=== PATIENT | male | born 1955 | race Caucasian/White ===

== ENCOUNTER 2021-04-25 06:57 | Observation (INO) | payer MEDICARE, SELFPAY ==
[2021-04-25] VITALS (25 sets, daily range): BP systolic 101–163; BP diastolic 57–113; PULSE 69–105; RESP 14–24; TEMP 36.1–36.9; O2SAT 94–100; BMI 35.1
--- NOTE | ~2021-04-25 | XR_ITS ---
EXAMINATION: XR chest 2V EXAM DATE: 04/25/2021 08:14 INDICATION: Irregular heartbeat with cough that started this morning. TECHNIQUE: Frontal and lateral projections of the chest obtained and reviewed. Comparison is made to prior examination from 10/31/2018. FINDINGS: Left midlung zone region of slightly increased density, possible developing pneumonia. Plea se clinically correlate. This finding has been indicated, marked on the examination for review, clini angy correlation. The lungs are otherwise clear. There are no pleural effusions. The cardiomediast inal silhouette is within normal limits. There is no pneumothorax suspected. The bones and soft tis sues are unremarkable. IMPRESSION: Left midlung zone region of slightly increased density, possible developing pneumonia. Pl ease clinically correlate. Reviewed, dictated and finalized at location A. IMPRESSION: Left midlung zone region of slightly increased density, possible de veloping pneumonia. Please clinically correlate.
--- NOTE | ~2021-04-25 | XR_ITS ---
XR chest 2V 04/27/2021 12:39 Indication: Dyspnea Procedure: 2 view chest Comparison: 10/31/2018 and 04/25/2021 Findings: There is a mass in the left lower thorax. Follow-up CT chest recommended to exclude maligna ncy. Borderline heart size. No focal pneumonia, edema, pleural effusion or pneumothorax. Impression: 1: Masslike density left lower thorax. Follow-up CT chest recommended. Reviewed, dictated and finalized at location B. Impression: 1: Masslike density left lower thorax. Follow-up CT chest recommended.
--- NOTE | ~2021-04-25 | CT_ITS ---
EXAMINATION: CT diagnostic chest w con DATE: 04/27/2021 17:44 INDICATION: abnormal chest x-ray TECHNIQUE: Computed tomography (CT) of the chest was performed with 100 mL Omnipaque-350 intravenous contrast. Additional 3D reconstructions utilizing coronal maximum intensity projection (MIP) were per formed. Automated exposure control and iterative reconstruction technique were employed. The dose-rashad gth product was 968.09 mGy-cm. COMPARISON: Chest radiograph dated 04/27/2021 FINDINGS: The nodular opacity of concern on the prior chest radiograph corresponds to minimal lingular atelecta sis along side a small paracardial fat pad. No suspicious pulmonary nodules, pneumonia, pulmonary leann ma or pleural effusion. Heart size is normal. Mitral annular calcification. Minimal scattered atheros clerotic coronary artery calcification. No pericardial effusion. Thoracic aorta is normal in caliber with no dissection. No pathologically enlarged thoracic lymphadenopathy. Prominent diffuse hepatic st eatosis. High attenuation either sludge or gallstones in the dependent neck of the otherwise normal g allbladder. There are bridging osteophytes at multiple levels in the spine, consistent with diffuse i diopathic skeletal hyperostosis (DISH). IMPRESSION: 1. Mild lingular atelectasis along the left pericardial fat pad which accounts for the nodular opacit y on prior chest radiograph. 2. Diffuse hepatic steatosis. 3. Sludge and/or gallstones at the neck of the gallbladder. Reviewed, dictated and finalized at location A. IMPRESSION: 1. Mild lingular atelectasis along the left pericardial fat pad which accounts for the nodular opacity on prior chest radiograph. 2. Diffuse hepatic steatosis. 3. Sludge and/or gallstones at the neck of the gallbladder.
--- NOTE | 2021-04-25 07:20 | ECG_ITS ---
Measurements Intervals Albers Rate: 87 P: 83 ND: 174 QRS: -58 QRSD: 109 T: 63 QT: 370 QTc: 447 Interpretive Statements SINUS RHYTHM FREQUENT VENTRICULAR PREMATURE COMPLEXES LEFT AXIS DEVIATION LOW QRS VOLTAGE IN LIMB LEADS CANNOT RULE OUT SEPTAL INFARCT, AGE INDETERMINATE BASELINE ARTIFACT- I, II, III, AVR ABNORMAL ECG Electronically Signed On 04-25-2021 14:38:26 CDT by Alvarez Hernandez D.O.
[2021-04-25] MEDS: ASPIRIN 81 MG CHEWABLE TABLET 324 MG PO (07:58)
[2021-04-25 08:06] LABS: Basophils Absolute Auto 0.1 K/mm3 (0.0-0.1); Basophils Percent Auto 1.3 % (0.2-1.2); Eosinophils Percent Auto 0.2 % (0-4.4); Hematocrit 43.4 % (42.0-52.0); Hemoglobin 15.1 g/dL (14.0-18.0); Immature Granulocyte Absolute 0.02 K/mm3 (0.00-0.031); Immature Granulocyte Percent A 0.3 % (0-0.5); Lymphocytes Absolute Auto 0.89 K/mm3 (0.9-3.2); Lymphocytes Percent Auto 14.3 % (18.3-44.2); Mean Corpuscular HGB Conc 34.8 g/dl (32-36); Mean Corpuscular Hemoglobin 33.7 pg (26-34); Mean Corpuscular Volume 96.9 fl (80-100); Mean Platelet Volume 10.4 fl (7.4-10.4); Monocytes Percent Auto 16.7 % (2.6-8.5); Neutrophils Absolute Auto 4.2 K/mm3 (1.3-6.7); Neutrophils Percent Auto 67.2 % (45.5-73.1); Platelet Count Result 144 k/mm3 (150-375); Red Blood Count 4.48 M/mm3 (4.6-6.20); Red Cell Distribution Width 12.3 % (11.5-14.5); White Blood Count 6.2 K/mm3 (4.5-10.0)
--- NOTE | 2021-04-25 08:06 | ED.ARRPALP ---
HPI - Arrhythmia/Palpitations General Chief Complaint: Arrhythmia/Palpitations Stated Complaint: WEAK AFTER EPISODE OF A-FIB Time Seen by Provider: 04/25/21 07:01 History of Present Illness HPI narrative: Patient is a 65-year-old male who presents ER with reports of palpitations. Occurred at about 4:30 AM. Lasted for little over an hour. It was making him lightheaded and dizzy when it occurred. Patient was also diaphoretic. Symptoms resolved upon arrival of EMS. No difficulty breathing. He does have history of atrial fibrillation and felt he was back in A. fib. He reports he has been compliant with his home medications and he does take Xarelto. He has not yet taken his morning medications because he came to the hospital. Forest Officer is Dr. Plunkett. Patient's reports that he has been feeling more fatigued over the last 4 days and yesterday had a Covid test that was negative. She reports that he is just laying around the house and sleeping due to this feeling. She reports that he is not even drinking beer and that is how she knows he is sick. Related Data Home Medications Medication Instructions Recorded Confirmed duloxetine 60 mg PO DAILY 10/26/19 10/26/19 folic acid 1 mg PO DAILY 10/26/19 10/26/19 furosemide [Lasix] 40 mg PO DAILY 10/26/19 10/26/19 lisinopril 20 mg PO DAILY 10/26/19 10/26/19 magnesium oxide 400 mg PO DAILY 10/26/19 10/26/19 metoprolol tartrate 100 mg PO DAILY 10/26/19 10/26/19 potassium chloride 20 meq PO DAILY 10/26/19 10/26/19 rivaroxaban [Xarelto] 20 mg PO DAILY 10/26/19 10/26/19 Allergies Allergy/AdvReac Type Severity Reaction Status Date / Time Penicillins Allergy Intermediate Anaphylaxis Verified 04/25/21 07:26 [id number]-Cuv-Dnb Reductase AdvReac Mild Confusion Verified 05/04/20 12:59 Inhibitor Review of Systems Review of Systems: All systems reviewed & are unremarkable except as noted in HPI and below Constitutional: Constitutional: Denies chills, Denies fever(s) and Denies weakness Comments: Sweats Cardiovascular: Cardiovascular: Denies chest pain and Denies radiating jaw, neck or arm pain Comments: Irregular heartbeats/palpitations Respiratory: Respiratory: Denies cough and Denies dyspnea Neurologic: Reports dizziness, Denies syncope, Denies focal weakness and Denies numbness PMF Past Medical History Medical History (Updated 04/25/21 @ 10:02 by Jesus Tanner MD) Atrial fibrillation Hyperlipidemia Hypertension Surgical History Surgical History (Updated 04/25/21 @ 10:02 by Jesus Tanner MD) History of back surgery Social History Social History (Updated 05/04/20 @ 13:03 by Marcia Rae) Smoking status: Former smoker Tobacco type: cigarettes Second hand tobacco smoke exposure: No Alcohol intake: current Drinks per week: 1 Substance use: never Exam Narrative: Exam Narrative: GENERAL: Well-appearing, well-nourished, and in no acute distress. HEAD: Normocephalic, atraumatic. CHEST: Clear to auscultation. No respiratory distress. HEART: Regular rate with frequent dropped beats. Normal peripheral pulses. ABDOMEN: Soft, nontender, nondistended. EXTREMITIES: Normal range of motion. No edema. SKIN: Warm, dry, no rash. NEURO: Alert and oriented x3. PSYCH: Normal mood and affect. Course Course Emergency Course: Patient is having no shortness of breath or cough. Admit to the hospitalist service in the right knee. After discussion with hospitalist we will hold off treating for pneumonia given the fact that he has no symptoms related to this. We have increased concern for his elevated troponin and possible arrhythmia causing his lightheadedness and sweats. We will have cardiology consulted. Radiology report states that patient reported cough that began this morning but he is repeatedly denied cough for me. Vital Signs Vital signs: Vital Signs Pulse Rate 89 04/25/21 06:58 Respiratory Rate 18 04/25/21 06:58 Blood Pressure 158/86
[2021-04-25 08:13] LABS: Anion Gap 10 mmol/L (8-16); Blood Urea Nitrogen 7 mg/dL (9-20); Calcium 8.9 mg/dL (8.4-10.2); Carbon Dioxide 25 mmol/L (22-30); Chloride 95 mmol/L (98-107); Estimated CRCL calculation 116 ml/min; Estimated Glomerular Filt Rate > 60; Glucose 179 mg/dL (75-110); INR 1.5; Potassium 4.3 mmol/L (3.4-5.0); Sodium 130 mmol/L (137-145)
[2021-04-25 08:14] LABS: Partial Thromboplastin Time 40.9 SECONDS (22.3-36.8)
[2021-04-25 08:27] LABS: Troponin I 0.044 ng/mL (0.000-0.034)
[2021-04-25 11:23] LABS: Troponin I 0.039 ng/mL (0.000-0.034)
--- NOTE | 2021-04-25 11:33 | PC.NURSE ---
This patient, Stanford Perez, was admitted to IMU Room 200-01. Patient/family oriented to hospital policies and general routines including ID bracelet, bed and alarms, visiting hours, pain management, procedures, bathroom and other care routines, personal items, smoking policy, room service/diet, and visiting hours. Information on how to activate the Rapid Response Team has been discussed. Patient/Family are encouraged to report perceived risks to care and to ask questions if they do not understand what they are told or what they should do.
--- NOTE | 2021-04-25 14:57 | PM.CNCAR ---
Assessment and Plan Assessment and plan (1) Elevated troponin: Code(s): R77.8 - Other specified abnormalities of plasma proteins Status: Acute Assessment and Plan: Mild troponin elevation flat curve not consistent with acute coronary syndrome. No anginal symptoms, EKG without acute ischemic changes. Prior troponins mildly elevated suspect chronic. Secondary to history of LV dysfunction. History of minimal nonobstructive CAD by [facility] 2017. Patient has started therapy for possible pneumonia based on abnormal chest x-ray. Defer to primary service in this regard. (2) History of cardiomyopathy: Code(s): Z86.79 - Personal history of other diseases of the circulatory system Status: Acute Assessment and Plan: Patient is not in decompensated heart failure at present. Continue Lasix 40 mg daily p.o.. Monitor sodium levels closely. By echo May 2020 EF 20% previously normalized to 60-65%. Repeat 2D echocardiogram for reassessment of LV function. Counseled patient on cardiotoxic effects of alcohol intake. Further recommendation to follow. Continue supportive medical therapy for history of cardiomyopathy. Change to Toprol XL 100 mg daily, continue SUKHDEV-inhibitor, not on aspirin as he is on Xarelto. Apnea link overnight. Patient is overweight and has a very thick neck suspect has RU. Further recommendations to follow. (3) CAD (coronary artery disease): Code(s): I25.10 - Atherosclerotic heart disease of [place] coronary artery without angina pectoris Status: Acute Assessment and Plan: As above, no evidence of acute coronary syndrome or myocardial ischemia at this time. (4) Hypertension associated with type 2 diabetes mellitus: Code(s): E11.59 - Type 2 diabetes mellitus with other circulatory complications; I15.2 - Hypertension secondary to endocrine disorders Status: Acute Assessment and Plan: Not ideally controlled but fair. Continue to monitor. Continue home antihypertensive regimen. (5) Hyponatremia: Code(s): E87.1 - Hypo-osmolality and hyponatremia Status: Acute Assessment and Plan: Monitor sodium levels, continue diuretic therapy. May need to back depending upon trends. (6) Paroxysmal atrial fibrillation: Code(s): I48.0 - Paroxysmal atrial fibrillation Status: Acute Assessment and Plan: Maintaining sinus rhythm. AFib was not noted at admission as an explanation for his symptom complex. Patient has frequent PVCs. Continue telemetry. Check TSH. (7) Alcohol abuse: Code(s): F10.10 - Alcohol abuse, uncomplicated Status: Acute Assessment and Plan: Counseled he must cut down due to the cardiotoxic effects of alcohol intake given his history of cardiomyopathy and CHF. Patient and his verbalized understanding. History of Present Illness History of Present Illness Consult date/time: Date of service: 04/25/21 14:57 Cardiology consultation at the request of Dr. Zaldivar for our opinion regarding history of cardiomyopathy, paroxysmal atrial fibrillation, elevated troponin. Requesting physician: Chema Zaldivar MD Consult reason: Other (Elevated troponin) Reason For Visit: chest pain,uncontrolled hypertension Narrative: Patient is a 65-year-old male well known to Dr. Plunektt followed in our office with a past medical history significant for minimal nonobstructive CAD by left heart catheterization 2017, nonischemic cardiomyopathy EF 20% by echocardiogram 05/2020, alcohol abuse, hypertension, paroxysmal atrial fibrillation, chronic anticoagulation, diabetes mellitus who states he was in his usual state of health until approximately 1 week ago when he began to experience exertional fatigue, shortness of breath could generalized weakness decreasing activity tolerance, dizziness. His is at bedside providing much of the history and states that they thought initially was related to more recent change in his di
[2021-04-25] MEDS: FUROSEMIDE 40 MG TABLET PO (15:27)
[2021-04-25] MEDS: DULoxetine HCL 60 MG CAPSULE.DR PO (15:27)
[2021-04-25] MEDS: METOPROLOL TARTRATE 50 MG TAB 100 MG PO (15:27)
[2021-04-25] MEDS: lisinopriL 20 MG TABLET PO (15:27)
[2021-04-25] MEDS: SODIUM CHLORIDE 0.9% IV 1,000 ML 125 ML IV CONT (15:34)
[2021-04-25] MEDS: HYDROcodone/acetaminophen (*CRX) 5-325 MG TABLET 1 TAB PO (15:46)
--- NOTE | 2021-04-25 16:46 | PM.IMHP ---
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 Patient will stay in hospital to midnight with pneumonia Chief Complaint: Pneumonia Review of Systems Review of Systems: All systems reviewed & are unremarkable except as noted in HPI and below PMFSH Past Medical History Medical History Atrial fibrillation Hyperlipidemia Hypertension Surgical History Surgical History History of back surgery Family History Family History Father Chronic obstructive pulmonary disease Congestive heart failure Lung cancer Mother Congestive heart failure Lung cancer Social History Social History Smoking packs per day: 1 Smoking cigarettes per day: 20.0 Years smoked: 20 Smoking pack-years: 20.00 Smoking status: Former smoker Tobacco type: cigarettes Second hand tobacco smoke exposure: No Alcohol intake: current Drinks per week: 21 Substance use: never Gender identity (if verbalized by the patient): Male Spiritual care concerns: No Meds Home Medications and Allergies Home Medications Medication Instructions Recorded Confirmed Type duloxetine 60 mg PO DAILY 10/26/19 04/25/21 History folic acid 1 mg PO DAILY 10/26/19 04/25/21 History furosemide [Lasix] 40 mg PO DAILY 10/26/19 04/25/21 History lisinopril 20 mg PO DAILY 10/26/19 04/25/21 History magnesium oxide 400 mg PO DAILY 10/26/19 04/25/21 History metoprolol tartrate 100 mg PO DAILY 10/26/19 04/25/21 History potassium chloride 20 meq PO DAILY 10/26/19 04/25/21 History rivaroxaban [Xarelto] 20 mg PO DAILY 10/26/19 04/25/21 History clindamycin HCl 300 mg capsule 300 mg PO Q8H #30 cap 05/04/20 04/25/21 Rx Allergies Allergy/AdvReac Type Severity Reaction Status Date / Time Penicillins Allergy Intermediate Anaphylaxis Verified 04/25/21 07:26 Rqnvxku-Gxe-Pkr Reductase AdvReac Mild Confusion Verified 05/04/20 12:59 Inhibitor Vital Signs Vital Signs - 24 hr 04/25/21 06:58 04/25/21 07:01 04/25/21 07:04 Temperature Pulse Rate 89 89 82 Respiratory Rate 18 18 14 Blood Pressure 158/86 H 131/113 H Pulse Oximetry 94 98 04/25/21 07:06 04/25/21 07:16 04/25/21 07:21 Temperature Pulse Rate 88 92 86 Respiratory Rate 22 H 18 Blood Pressure 158/86 H 156/94 H Pulse Oximetry 95 04/25/21 07:31 04/25/21 07:58 04/25/21 08:34 Temperature Pulse Rate 87 92 101 H Respiratory Rate 19 18 19 Blood Pressure 152/95 H 153/77 H 156/92 H Pulse Oximetry 97 96 96 04/25/21 08:46 04/25/21 09:30 04/25/21 09:45 Temperature Pulse Rate 92 79 Respiratory Rate 19 22 H 24 H Blood Pressure 152/93 H Pulse Oximetry 96 95 96 04/25/21 10:00 04/25/21 10:56 04/25/21 11:07 Temperature Pulse Rate 80 80 84 Respiratory Rate 21 H 20 20 Blood Pressure 163/93 H 136/78 Pulse Oximetry 97 97 97 04/25/21 11:20 04/25/21 12:00 04/25/21 14:00 Temperature 98.5 F Pulse Rate 80 87 92 Respiratory Rate 18 20 Blood Pressure 154/73 H Pulse Oximetry 100 97 04/25/21 15:27 04/25/21 16:00 Temperature Pulse Rate 96 85 Respiratory Rate 20 Blood Pressure Pulse Oximetry 97 H&P: Results Labs Labs: Short CBC 04/25/21 Range/Units 07:56 WBC
[2021-04-25 16:49] LABS: Troponin I 0.035 ng/mL (0.000-0.034)
[2021-04-25] MEDS: POTASSIUM CHLORIDE 20 MEQ TABLET.ER PO (17:35)
[2021-04-25] MEDS: RIVAROXABAN 20 MG TABLET PO (17:36)
[2021-04-26] VITALS (17 sets, daily range): BP systolic 139–179; BP diastolic 72–100; PULSE 64–105; RESP 18–28; TEMP 36.4–37.8; O2SAT 95–98
[2021-04-26] MEDS: SODIUM CHLORIDE 0.9% IV 1,000 ML 125 ML IV CONT (01:29)
[2021-04-26 08:09] LABS: Anion Gap 9 mmol/L (8-16); Blood Urea Nitrogen 9 mg/dL (9-20); Calcium 8.4 mg/dL (8.4-10.2); Carbon Dioxide 22 mmol/L (22-30); Chloride 101 mmol/L (98-107); Estimated CRCL calculation 116 ml/min; Estimated Glomerular Filt Rate > 60; Glucose 152 mg/dL (75-110); Magnesium 1.6 mg/dL (1.6-2.3); Potassium 4.3 mmol/L (3.4-5.0); Sodium 132 mmol/L (137-145)
[2021-04-26 08:13] LABS: Hematocrit 42.6 % (42.0-52.0); Hemoglobin 14.2 g/dL (14.0-18.0); Immature Platelet Fraction Pct 7.3 % (0.9-11.2); Mean Corpuscular HGB Conc 33.3 g/dl (32-36); Mean Corpuscular Hemoglobin 33.3 pg (26-34); Mean Platelet Volume 10.7 fl (7.4-10.4); Platelet Count Result 132 k/mm3 (150-375); Red Blood Count 4.26 M/mm3 (4.6-6.20); Red Cell Distribution Width 12.6 % (11.5-14.5); White Blood Count 5.6 K/mm3 (4.5-10.0)
[2021-04-26] MEDS: METOPROLOL TARTRATE 50 MG TAB 100 MG PO (09:02)
[2021-04-26] MEDS: POTASSIUM CHLORIDE 20 MEQ TABLET.ER PO (09:14)
[2021-04-26] MEDS: DULoxetine HCL 60 MG CAPSULE.DR PO (09:14)
[2021-04-26] MEDS: ACETAMINOPHEN 325 MG TABLET 650 MG PO (09:14)
[2021-04-26] MEDS: lisinopriL 20 MG TABLET PO (09:14)
[2021-04-26] MEDS: MAGNESIUM OXIDE 400 MG TABLET PO (09:14)
[2021-04-26] MEDS: FOLIC ACID 1 MG TABLET PO (09:14)
[2021-04-26] MEDS: FUROSEMIDE 40 MG TABLET PO (09:15)
[2021-04-26 10:03] LABS: Glucose Point of Care 186 mg/dl (65-105)
--- NOTE | 2021-04-26 11:27 | PM.PNCARD ---
Progress Note: A&P Assessment and Plan (1) Elevated troponin: Code(s): R77.8 - Other specified abnormalities of plasma proteins <THAO White - Last Filed: 04/27/21 07:37> Status: Acute <THAO White - Last Filed: 04/27/21 07:37> Assessment and Plan: Mild troponin elevation flat curve not consistent with acute coronary syndrome. No anginal symptoms, EKG without acute ischemic changes. Prior troponins mildly elevated suspect chronic. Secondary to history of LV dysfunction. History of minimal nonobstructive CAD by [facility] 2018. Patient has started therapy for possible pneumonia based on abnormal chest x-ray. Defer to primary service in this regard. <THAO White - Last Filed: 04/27/21 07:37> (2) History of cardiomyopathy: Code(s): Z86.79 - Personal history of other diseases of the circulatory system <THAO White - Last Filed: 04/27/21 07:37> Status: Acute <THAO White - Last Filed: 04/27/21 07:37> Assessment and Plan: Patient is not in decompensated heart failure at present. Continue Lasix 40 mg daily p.o.. Monitor sodium levels closely. By echo May 2020 EF 20% previously normalized to 60-65%. Repeat 2D echocardiogram for reassessment of LV function. Counseled patient on cardiotoxic effects of alcohol intake. Further recommendation to follow. Continue supportive medical therapy for history of cardiomyopathy. Change to Toprol XL 100 mg daily, continue SUKHDEV-inhibitor, not on aspirin as he is on Xarelto. <THAO White - Last Filed: 04/27/21 07:37> (3) CAD (coronary artery disease): Code(s): I25.10 - Atherosclerotic heart disease of [place] coronary artery without angina pectoris <THAO White - Last Filed: 04/27/21 07:37> Status: Acute <THAO White - Last Filed: 04/27/21 07:37> Assessment and Plan: As above, no evidence of acute coronary syndrome or myocardial ischemia at this time. <THAO White - Last Filed: 04/27/21 07:37> (4) Hypertension associated with type 2 diabetes mellitus: Code(s): E11.59 - Type 2 diabetes mellitus with other circulatory complications; I15.2 - Hypertension secondary to endocrine disorders <THAO White - Last Filed: 04/27/21 07:37> Status: Acute <THAO White - Last Filed: 04/27/21 07:37> Assessment and Plan: Not ideally controlled but fair. Continue to monitor. Continue home antihypertensive regimen. <THAO White - Last Filed: 04/27/21 07:37> (5) Hyponatremia: Code(s): E87.1 - Hypo-osmolality and hyponatremia <THAO White - Last Filed: 04/27/21 07:37> Status: Acute <THAO White - Last Filed: 04/27/21 07:37> Assessment and Plan: Monitor sodium levels, continue diuretic therapy. May need to back depending upon trends. <THAO White - Last Filed: 04/27/21 07:37> (6) Paroxysmal atrial fibrillation: Code(s): I48.0 - Paroxysmal atrial fibrillation <THAO White - Last Filed: 04/27/21 07:37> Status: Acute <THAO White - Last Filed: 04/27/21 07:37> Assessment and Plan: Maintaining sinus rhythm. AFib was not noted at admission as an explanation for his symptom complex. Patient has frequent PVCs. Continue telemetry. Check TSH. <THAO White - Last Filed: 04/27/21 07:37> (7) Alcohol abuse: Code(s): F10.10 - Alcohol abuse, uncomplicated <THAO White - Last Filed: 04/27/21 07:37> Status: Acute <THAO White - Last Filed: 04/27/21 07:37> Assessment and Plan: Counseling performed <Estella Bey APN-Rehana - Last Filed: 04/27/21 07:37> Additional Plan attending addendum: I have personally seen and examined the patient at bedside. I agree with the documentation and plan
--- NOTE | 2021-04-26 14:34 | ECHO_ITS ---
Patient Info Name: Stanford Perez Age: 65 years : 1955 Gender: Male Ht: 71 in Wt: 250 lbs BSA: 2.42 m2 HR: 78 bpm BP: 156 / 72 mmHg Heart Rhythm: Sinus Rhythm Technical Quality: Poor Exam Date: 04/26/2021 12:55 PM Site Location: 72 Exam Location: [facility] Card Pulmonary Exam Room: 200 Patient Status: Inpatient Admit Date: 04/25/2021 Staff Ordering Physician: Gilbert Sheffield MD Lead Generation Marketing Manager: Radha Barr RDCS Attending Provider: Jose R Church MD Referring Physician: Nettie FABIAN; Exam Type: CA echo dop color flow w con Study Info Indications - HX/O nicm afib elev troponins Complete two-dimensional, color flow and Doppler transthoracic echocardiogram is performed with contrast to opacify the left ventricle and to improve the deliniation of the left ventricle endocardial borders. Contrast/Agitated Saline Contrast/Ag. Saline: Definity Amount: --- ml Administered By: Mehnaz Ramos RN IV Access Condition: patent with no signs of infiltration Reason for Poor Study: patient body habitus Summary 1. Left ventricular chamber dimension is normal. 2. Left ventricular systolic function is normal, estimated at 65-70%. 3. There is mildly increased left ventricular wall thickness. 4. The left ventricular diastolic function is grade I diastolic dysfunction. 5. Left atrial chamber dimension is severely enlarged. 6. Right atrial chamber dimension is severely enlarged. 7. There is no aortic valve stenosis. 8. There is trace mitral valve regurgitation. 9. There is trace tricuspid valve regurgitation. 10. Mild pulmonary hypertension, estimated pulmonary arterial systolic pressure is 35 mmHg. Left Ventricle Left ventricular chamber dimension is normal. Left ventricular systolic function is normal, estimated at 65-70%. There is mildly increased left ventricular wall thickness. The left ventricular diastolic function is grade I diastolic dysfunction. Right Ventricle Right ventricular chamber dimension is not well visualized. Left Atria Left atrial chamber dimension is severely enlarged. Right Atria Right atrial chamber dimension is severely enlarged. Aortic Valve The aortic valve is not well visualized. There is no aortic valve stenosis. There is no aortic valve regurgitation. Pulmonic Valve The pulmonic valve is not well visualized. Mitral Valve The mitral valve has normal leaflets. There is trace mitral valve regurgitation. The mitral valve annulus is moderately calcified. Tricuspid Valve The tricuspid valve leaflets are normal. There is trace tricuspid valve regurgitation. Mild pulmonary hypertension, estimated pulmonary arterial systolic pressure is 35 mmHg. Pericardium/Pleural The pericardium appears epicardial fat pad. Aorta The aortic root size at the sinus of Valsalva is normal. There is mild aortic atherosclerosis. Left Ventricular Outflow Tract Name Value Normal LVOT 2D LVOT Diameter 2.18 cm LVOT Doppler LVOT Peak Gradient 5 mmHg LVOT Mean Gradient 3
[2021-04-26] MEDS: RIVAROXABAN 20 MG TABLET PO (16:33)
--- NOTE | 2021-04-26 17:25 | PM.IMPN ---
Progress Note: A&P Assessment and Plan (1) Pneumonia: Code(s): J18.9 - Pneumonia, unspecified organism Status: Acute Assessment and Plan: 04/26/21 17:25 04/25 patient is a 65-year-old male with history of atrial fibrillation, ischemic cardiomyopathy, and alcohol abuse presented emergency depart with complaint being malaise, fatigue and fever is 4 days, patient states he really feels sick as he has not drank his beer last today, patient had a chest x-ray suspicion for pneumonia I have started the patient on levaquin, upon arrival patient tropes was slightly elevated patient seen clear coat sprayer does not suspect acute coronary syndrome most likely demand ischemia due to pneumonia, will continue to monitor. 04/26 patient did have a fever this morning however patient feels little better than yesterday not as tired and fatigued, patient is suspected to have pneumonia being treated Levaquin will follow-up on blood culture, repeat chest x-ray tomorrow, patient remains clinically stable seen by Cardiology and further recommendation to follow (2) Paroxysmal atrial fibrillation: Code(s): I48.0 - Paroxysmal atrial fibrillation Status: Acute Assessment and Plan: Patient rate is controlled anticoagulated with Xarelto (3) Hyponatremia: Code(s): E87.1 - Hypo-osmolality and hyponatremia Status: Acute Assessment and Plan: Most likely secondary alcohol abuse, and dehydration will gently hydrate the patient and monitor (4) Elevated troponin: Code(s): R77.8 - Other specified abnormalities of plasma proteins Status: Acute Assessment and Plan: Patient with a mildly elevated tropes and flat, most likely demand ischemia unlikely acute coronary syndrome seen by clear coat sprayer does not recommend any further workup Subjective Date/time seen: 04/26/21 17:25 04/25 patient is a 65-year-old male with history of atrial fibrillation, ischemic cardiomyopathy, and alcohol abuse presented emergency depart with complaint being malaise, fatigue and fever is 4 days, patient states he really feels sick as he has not drank his beer last today, patient had a chest x-ray suspicion for pneumonia I have started the patient on levaquin, upon arrival patient tropes was slightly elevated patient seen clear coat sprayer does not suspect acute coronary syndrome most likely demand ischemia due to pneumonia, will continue to monitor. 04/26 patient did have a fever this morning however patient feels little better than yesterday not as tired and fatigued, patient is suspected to have pneumonia being treated Levaquin will follow-up on blood culture, repeat chest x-ray tomorrow, patient remains clinically stable seen by Cardiology and further recommendation to follow Review of Systems Review of Systems: All systems reviewed & are unremarkable except as noted in HPI and below Exam Narrative: Exam Narrative: Moderately obese Patient is comfortable, NAD HEENT: eyes are clear and none icteric LUNGS: Bilateral fair and with rales and rhonchi HEART: RR S1S2 ABD: BS+, Soft and nontender Lower extremities: no edema SKIN: nonjaundiced Neuro: grossly intact. Objective Data Vital Signs Vital Signs: Vital Signs - 24 hr 04/25/21 18:00 04/25/21 20:00 04/25/21 20:15 Temperature 98.0 F Pulse Rate 92 84 Respiratory Rate 20 Blood Pressure 106/57 L Pulse Oximetry 94 96 04/25/21 22:00 04/25/21 23:46 04/26/21 00:00 Temperature 97.6 F Pulse Rate 82 105 H 105 H Respiratory Rate 18 18 Blood Pressure 101/57 L Pulse Oximetry 97 97 04/26/21 02:00 04/26/21 04:00 04/26/21 06:00 Temperature 97.6 F Pulse Rate 78 81 85 Respiratory Rate 20 Blood Pressure 156/72 H Pulse Oximetry 97 04/26/21 08:00 04/26/21 08:57 04/26/21 09:02 Temperature 100.1 F H Pulse Rate 94 81 Respiratory Rate 24 H Blood Pressure 179/100 H Pulse Oximetry 95 97 04/26/21 09:14 04/26/21 10:00
[2021-04-27] VITALS (21 sets, daily range): BP systolic 120–156; BP diastolic 66–98; PULSE 69–97; RESP 16–31; TEMP 36.6–39.4; O2SAT 94–98
[2021-04-27] MEDS: SODIUM CHLORIDE 0.9% IV 1,000 ML 125 ML IV CONT (02:04)
[2021-04-27 05:30] LABS: Hematocrit 41.5 % (42.0-52.0); Immature Platelet Fraction Pct 9.3 % (0.9-11.2); Mean Corpuscular HGB Conc 33.7 g/dl (32-36); Mean Corpuscular Hemoglobin 33.5 pg (26-34); Mean Corpuscular Volume 99.3 fl (80-100); Mean Platelet Volume 11.2 fl (7.4-10.4); Platelet Count Result 124 k/mm3 (150-375); Red Blood Count 4.18 M/mm3 (4.6-6.20); Red Cell Distribution Width 12.7 % (11.5-14.5); White Blood Count 6.5 K/mm3 (4.5-10.0)
[2021-04-27 05:36] LABS: Anion Gap 10 mmol/L (8-16); Blood Urea Nitrogen 10 mg/dL (9-20); Calcium 8.1 mg/dL (8.4-10.2); Carbon Dioxide 22 mmol/L (22-30); Chloride 100 mmol/L (98-107); Estimated CRCL calculation 116 ml/min; Estimated Glomerular Filt Rate > 60; Glucose 139 mg/dL (75-110); Potassium 3.8 mmol/L (3.4-5.0); Sodium 132 mmol/L (137-145)
[2021-04-27] MEDS: METOPROLOL TARTRATE 50 MG TAB 100 MG PO (08:14)
[2021-04-27] MEDS: lisinopriL 20 MG TABLET PO (08:14)
[2021-04-27] MEDS: DULoxetine HCL 60 MG CAPSULE.DR PO (08:14)
[2021-04-27] MEDS: FUROSEMIDE 40 MG TABLET PO (08:14)
[2021-04-27] MEDS: POTASSIUM CHLORIDE 20 MEQ TABLET.ER PO (08:14)
[2021-04-27] MEDS: FOLIC ACID 1 MG TABLET PO (08:14)
[2021-04-27] MEDS: MAGNESIUM OXIDE 400 MG TABLET PO (08:14)
[2021-04-27] MEDS: ACETAMINOPHEN 325 MG TABLET 650 MG PO ×2 (13:07→20:19)
--- NOTE | 2021-04-27 14:30 | PM.IMPN ---
Progress Note: A&P Assessment and Plan (1) Pneumonia: Code(s): J18.9 - Pneumonia, unspecified organism Status: Acute Assessment and Plan: 04/27/21 14:30 04/25 patient is a 65-year-old male with history of atrial fibrillation, ischemic cardiomyopathy, and alcohol abuse presented emergency depart with complaint being malaise, fatigue and fever is 4 days, patient states he really feels sick as he has not drank his beer last today, patient had a chest x-ray suspicion for pneumonia I have started the patient on levaquin, upon arrival patient tropes was slightly elevated patient seen film rental clerk does not suspect acute coronary syndrome most likely demand ischemia due to pneumonia, will continue to monitor. 04/26 patient did have a fever this morning however patient feels little better than yesterday not as tired and fatigued, patient is suspected to have pneumonia being treated Levaquin will follow-up on blood culture, repeat chest x-ray tomorrow, patient remains clinically stable seen by Cardiology and further recommendation to follow. 04/27 today patient is sitting on the side of the bed is feeling much denies any cough shortness of breath fever or chills, to further evaluate patient had chest x-ray showed masslike density left lower thorax, radiologist recommended CT scan to further evaluate will order and monitor, patient remains clinically stable, history of atrial fibrillation ischemic cardiomyopathy with ejection fraction of 20%, rate is controlled patient had a cardiac echo which showed substantial improvement in his ejection fraction of 65%, patient seen by Cardiology and appreciate. (2) Paroxysmal atrial fibrillation: Code(s): I48.0 - Paroxysmal atrial fibrillation Status: Acute Assessment and Plan: Patient rate is controlled anticoagulated with Xarelto (3) Hyponatremia: Code(s): E87.1 - Hypo-osmolality and hyponatremia Status: Acute Assessment and Plan: Most likely secondary alcohol abuse, and dehydration will gently hydrate the patient and monitor (4) Elevated troponin: Code(s): R77.8 - Other specified abnormalities of plasma proteins Status: Acute Assessment and Plan: Patient with a mildly elevated tropes and flat, most likely demand ischemia unlikely acute coronary syndrome seen by film rental clerk does not recommend any further workup Subjective Date/time seen: 04/27/21 14:30 04/25 patient is a 65-year-old male with history of atrial fibrillation, ischemic cardiomyopathy, and alcohol abuse presented emergency depart with complaint being malaise, fatigue and fever is 4 days, patient states he really feels sick as he has not drank his beer last today, patient had a chest x-ray suspicion for pneumonia I have started the patient on levaquin, upon arrival patient tropes was slightly elevated patient seen film rental clerk does not suspect acute coronary syndrome most likely demand ischemia due to pneumonia, will continue to monitor. 04/26 patient did have a fever this morning however patient feels little better than yesterday not as tired and fatigued, patient is suspected to have pneumonia being treated Levaquin will follow-up on blood culture, repeat chest x-ray tomorrow, patient remains clinically stable seen by Cardiology and further recommendation to follow. 04/27 today patient is sitting on the side of the bed is feeling much denies any cough shortness of breath fever or chills, to further evaluate patient had chest x-ray showed masslike density left lower thorax, radiologist recommended CT scan to further evaluate will order and monitor, patient remains clinically stable, history of atrial fibrillation ischemic cardiomyopathy with ejection fraction of 20%, rate is controlled patient had a cardiac echo which showed substantial improvement in his ejection fraction of 65%, patient seen by Cardiology and appreciate. Review of Systems Review of Systems: All syst
[2021-04-27] MEDS: RIVAROXABAN 20 MG TABLET PO (16:58)
--- NOTE | 2021-04-27 17:40 | PC.NURSE ---
This patient, Stanford Perez, was received from IMU on 04/27/21 at 1740. Patient/family oriented to unit policies and routines. Received report from FARIDA Glass.
--- NOTE | 2021-04-27 18:35 | PC.NURSE ---
This patient, Stanford Peerz, was transferred to [[facility] ] on 04/27/21 at 1734. Personal belongings sent with patient. Report given to [[facility] ]. Appropriate documentation sent with patient.
[2021-04-27] MEDS: IBUPROFEN 600 MG TABLET PO (22:24)
[2021-04-27 23:05] LABS: Basophils Absolute Auto 0.1 K/mm3 (0.0-0.1); Basophils Percent Auto 0.5 % (0.2-1.2); Eosinophils Percent Auto 0.4 % (0-4.4); Hematocrit 43.1 % (42.0-52.0); Hemoglobin 14.4 g/dL (14.0-18.0); Immature Granulocyte Absolute 0.03 K/mm3 (0.00-0.031); Immature Granulocyte Percent A 0.3 % (0-0.5); Immature Platelet Fraction Pct 11.1 % (0.9-11.2); Lymphocytes Percent Auto 15.3 % (18.3-44.2); Mean Corpuscular HGB Conc 33.4 g/dl (32-36); Mean Corpuscular Hemoglobin 33.2 pg (26-34); Mean Corpuscular Volume 99.3 fl (80-100); Mean Platelet Volume 11.5 fl (7.4-10.4); Monocytes Absolute Auto 1.2 K/mm3 (0.1-0.6); Monocytes Percent Auto 13.3 % (2.6-8.5); Neutrophils Absolute Auto 6.4 K/mm3 (1.3-6.7); Neutrophils Percent Auto 70.2 % (45.5-73.1); Platelet Count Result 113 k/mm3 (150-375); Red Blood Count 4.34 M/mm3 (4.6-6.20); Red Cell Distribution Width 12.6 % (11.5-14.5); White Blood Count 9.2 K/mm3 (4.5-10.0)
[2021-04-27 23:15] LABS: Alanine Aminotransferase 32 U/L (4-50); Albumin Level 3.5 g/dL (3.5-5.1); Alkaline Phosphatase 52 U/L (38-126); Anion Gap 8 mmol/L (8-16); Aspartate Amino Transferase 48 U/L (17-59); Blood Urea Nitrogen 11 mg/dL (9-20); CRP 6.9 mg/dL (<1.0); Calcium 8.8 mg/dL (8.4-10.2); Carbon Dioxide 23 mmol/L (22-30); Chloride 102 mmol/L (98-107); Estimated CRCL calculation 104 ml/min; Estimated Glomerular Filt Rate > 60; Glucose 153 mg/dL (75-110); Magnesium 1.6 mg/dL (1.6-2.3); Potassium 3.9 mmol/L (3.4-5.0); Sodium 133 mmol/L (137-145)
[2021-04-27 23:25] LABS: Lactic Acid Reflex 1.3 mmol/L (0.7-2.1)
--- NOTE | 2021-04-27 23:51 | PC.NURSE ---
Report given to [facility] IQBAL per telephone. Transferred pt per bed to room 331 at 2300. Pt voiced understanding with no complaints.
[2021-04-28] VITALS (10 sets, daily range): BP systolic 108–158; BP diastolic 58–87; PULSE 61–100; RESP 16–21; TEMP 36.2–38.1; O2SAT 95–100
[2021-04-28 00:11] LABS: Procalcitonin 0.5 ng/mL
[2021-04-28 06:46] LABS: Hematocrit 44.5 % (42.0-52.0); Hemoglobin 14.8 g/dL (14.0-18.0); Immature Platelet Fraction Pct 13.5 % (0.9-11.2); Mean Corpuscular HGB Conc 33.3 g/dl (32-36); Mean Corpuscular Hemoglobin 33.6 pg (26-34); Mean Corpuscular Volume 100.9 fl (80-100); Mean Platelet Volume 11.4 fl (7.4-10.4); Platelet Count Result 116 k/mm3 (150-375); Red Blood Count 4.41 M/mm3 (4.6-6.20); Red Cell Distribution Width 12.7 % (11.5-14.5); White Blood Count 6.9 K/mm3 (4.5-10.0)
[2021-04-28 07:00] LABS: Anion Gap 8 mmol/L (8-16); Blood Urea Nitrogen 13 mg/dL (9-20); Carbon Dioxide 29 mmol/L (22-30); Chloride 102 mmol/L (98-107); Estimated CRCL calculation 93 ml/min; Estimated Glomerular Filt Rate > 60; Glucose 160 mg/dL (75-110); Potassium 3.9 mmol/L (3.4-5.0); Sodium 139 mmol/L (137-145)
--- NOTE | 2021-04-28 09:53 | PM.PNCARD ---
Progress Note: A&P Assessment and Plan (1) Elevated troponin: Code(s): R77.8 - Other specified abnormalities of plasma proteins Status: Acute Assessment and Plan: Mild troponin elevation flat curve not consistent with acute coronary syndrome. No anginal symptoms, EKG without acute ischemic changes. Prior troponins mildly elevated suspect chronic. Secondary to history of LV dysfunction. History of minimal nonobstructive CAD by [facility] 2017. Patient has started therapy for possible pneumonia based on abnormal chest x-ray. Defer to primary service in this regard. (2) History of cardiomyopathy: Code(s): Z86.79 - Personal history of other diseases of the circulatory system Status: Acute Assessment and Plan: Patient is not in decompensated heart failure at present. Continue Lasix 40 mg daily p.o.. Monitor sodium levels closely. By echo May 2020 EF 20% previously normalized to 60-65%. Counseled patient on cardiotoxic effects of alcohol intake. Further recommendation to follow. Continue supportive medical therapy for history of cardiomyopathy. Change to Toprol XL 100 mg daily, continue SUKHDEV-inhibitor, not on aspirin as he is on Xarelto. (3) CAD (coronary artery disease): Code(s): I25.10 - Atherosclerotic heart disease of [place] coronary artery without angina pectoris Status: Acute Assessment and Plan: As above, no evidence of acute coronary syndrome or myocardial ischemia at this time. (4) Hypertension associated with type 2 diabetes mellitus: Code(s): E11.59 - Type 2 diabetes mellitus with other circulatory complications; I15.2 - Hypertension secondary to endocrine disorders Status: Acute Assessment and Plan: Not ideally controlled but fair. Continue to monitor. Continue home antihypertensive regimen. (5) Hyponatremia: Code(s): E87.1 - Hypo-osmolality and hyponatremia Status: Acute Assessment and Plan: Monitor sodium levels, continue diuretic therapy. May need to back depending upon trends. (6) Paroxysmal atrial fibrillation: Code(s): I48.0 - Paroxysmal atrial fibrillation Status: Acute Assessment and Plan: Maintaining sinus rhythm. AFib was not noted at admission as an explanation for his symptom complex. Patient has frequent PVCs. Continue telemetry. Check TSH. (7) Alcohol abuse: Code(s): F10.10 - Alcohol abuse, uncomplicated Status: Acute Assessment and Plan: Counseling performed (8) Hypomagnesemia: Code(s): E83.42 - Hypomagnesemia Status: Acute Assessment and Plan: 2 g IV magnesium x1 Subjective Date/time seen: 04/28/21 09:53 Interval history: 65-year-old admitted for fever. He is patient of mine and of seeing him follow-up. Date of service 04/28/2021: Feels that his fever broke last night. No chest pain. No shortness of breath. Review of Systems Review of Systems: All systems reviewed & are unremarkable except as noted in HPI and below Constitutional: Constitutional: Reports as per HPI, Reports no additional constitutional complaints, Reports fatigue, Reports lethargy and Reports weakness Eyes: Eyes: Reports as per HPI and Reports no additional eye complaints ENT: Reports system reviewed and no additional complaints, except as documented and Reports as per HPI Cardiovascular: Cardiovascular: Reports as per HPI, Reports no additional cardiovascular complaints, Denies chest pain, Reports diaphoresis, Denies pedal edema, Denies leg edema, Reports lightheadedness, Denies palpitations, Reports dyspnea and Reports dyspnea on exertion Respiratory: Respiratory: Reports as per HPI, Reports no additional respiratory complaints, Denies cough, Reports dyspnea and Reports dyspnea on exertion Gastrointestinal: Gastrointestinal: Reports as per HPI, Reports no additional gastrointestinal complaints, Denies abdominal pain, Denies melena, Reports bloating, Denies hematochez
[2021-04-28] MEDS: FOLIC ACID 1 MG TABLET PO (10:06)
[2021-04-28] MEDS: METOPROLOL TARTRATE 50 MG TAB 100 MG PO (10:06)
[2021-04-28] MEDS: DULoxetine HCL 60 MG CAPSULE.DR PO (10:06)
[2021-04-28] MEDS: POTASSIUM CHLORIDE 20 MEQ TABLET.ER PO (10:06)
[2021-04-28] MEDS: MAGNESIUM OXIDE 400 MG TABLET PO (10:07)
[2021-04-28] MEDS: FUROSEMIDE 40 MG TABLET PO (10:07)
[2021-04-28] MEDS: lisinopriL 20 MG TABLET PO (10:07)
[2021-04-28] MEDS: MAGNESIUM SULF 2 GM/WATER 50ML 2 GM/50 ML BAG IVPB (10:08)
--- NOTE | 2021-04-28 14:02 | PM.IMPN ---
Progress Note: A&P Assessment and Plan (1) Pneumonia: Code(s): J18.9 - Pneumonia, unspecified organism Status: Acute Assessment and Plan: 04/28/21 14:02 04/25 patient is a 65-year-old male with history of atrial fibrillation, ischemic cardiomyopathy, and alcohol abuse presented emergency depart with complaint being malaise, fatigue and fever is 4 days, patient states he really feels sick as he has not drank his beer last today, patient had a chest x-ray suspicion for pneumonia I have started the patient on levaquin, upon arrival patient tropes was slightly elevated patient seen acute coordinator does not suspect acute coronary syndrome most likely demand ischemia due to pneumonia, will continue to monitor. 04/26 patient did have a fever this morning however patient feels little better than yesterday not as tired and fatigued, patient is suspected to have pneumonia being treated Levaquin will follow-up on blood culture, repeat chest x-ray tomorrow, patient remains clinically stable seen by Cardiology and further recommendation to follow. 04/27 today patient is sitting on the side of the bed is feeling much denies any cough shortness of breath fever or chills, to further evaluate patient had chest x-ray showed masslike density left lower thorax, radiologist recommended CT scan to further evaluate will order and monitor, patient remains clinically stable, history of atrial fibrillation ischemic cardiomyopathy with ejection fraction of 20%, rate is controlled patient had a cardiac echo which showed substantial improvement in his ejection fraction of 65%, patient seen by Cardiology and appreciate. 04/28 there is suspicion patient may be positive COVID however chest X and CT scan of the chest did not show any COVID like pneumonia, patient patient had a chest x-ray there was a concern for lung mass to further evaluation patient had CT scan of the chest which does not show any malignancy or mass, CT scan of the chest did not show any pneumonia, currently patient states is feeling much better denies any cough shortness of breath fever or chills, will follow-up on COVID and further recommendation to follow if COVID reasoning and patient is clinically stable will discharge the patient home tomorrow (2) Paroxysmal atrial fibrillation: Code(s): I48.0 - Paroxysmal atrial fibrillation Status: Acute Assessment and Plan: Patient rate is controlled anticoagulated with Xarelto (3) Hyponatremia: Code(s): E87.1 - Hypo-osmolality and hyponatremia Status: Acute Assessment and Plan: Most likely secondary alcohol abuse, and dehydration will gently hydrate the patient and monitor (4) Elevated troponin: Code(s): R77.8 - Other specified abnormalities of plasma proteins Status: Acute Assessment and Plan: Patient with a mildly elevated tropes and flat, most likely demand ischemia unlikely acute coronary syndrome seen by acute coordinator does not recommend any further workup Subjective Date/time seen: 04/28/21 14:02 04/25 patient is a 65-year-old male with history of atrial fibrillation, ischemic cardiomyopathy, and alcohol abuse presented emergency depart with complaint being malaise, fatigue and fever is 4 days, patient states he really feels sick as he has not drank his beer last today, patient had a chest x-ray suspicion for pneumonia I have started the patient on levaquin, upon arrival patient tropes was slightly elevated patient seen acute coordinator does not suspect acute coronary syndrome most likely demand ischemia due to pneumonia, will continue to monitor. 04/26 patient did have a fever this morning however patient feels little better than yesterday not as tired and fatigued, patient is suspected to have pneumonia being treated Levaquin will follow-up on blood culture, repeat chest x-ray tomorrow, patient remains clinically stable seen by Cardiology and further recommendation to follow. 04/27 today
[2021-04-28] MEDS: ACETAMINOPHEN 325 MG TABLET 650 MG PO (15:13)
[2021-04-28] MEDS: RIVAROXABAN 20 MG TABLET PO (16:54)
[2021-04-28 17:56] LABS: SARS-CoV-2 RNA PCR Negative
[2021-04-29] VITALS: PULSE 58
[2021-04-29 04:00] VITALS: PULSE 66
[2021-04-29 06:00] VITALS: BP 133/81; PULSE 72; RESP 16; TEMP 36.6; O2SAT 98
[2021-04-29 06:59] LABS: Hematocrit 43.1 % (42.0-52.0); Hemoglobin 14.1 g/dL (14.0-18.0); Immature Platelet Fraction Pct 12.7 % (0.9-11.2); Mean Corpuscular HGB Conc 32.7 g/dl (32-36); Mean Corpuscular Volume 100.9 fl (80-100); Mean Platelet Volume 11.8 fl (7.4-10.4); Platelet Count Result 135 k/mm3 (150-375); Red Blood Count 4.27 M/mm3 (4.6-6.20); Red Cell Distribution Width 12.7 % (11.5-14.5); White Blood Count 6.4 K/mm3 (4.5-10.0)
[2021-04-29 07:12] LABS: Anion Gap 9 mmol/L (8-16); Blood Urea Nitrogen 18 mg/dL (9-20); Calcium 9.2 mg/dL (8.4-10.2); Carbon Dioxide 28 mmol/L (22-30); Chloride 102 mmol/L (98-107); Estimated CRCL calculation 103 ml/min; Estimated Glomerular Filt Rate > 60; Glucose 124 mg/dL (75-110); Potassium 3.7 mmol/L (3.4-5.0); Sodium 139 mmol/L (137-145)
[2021-04-29 08:00] VITALS: PULSE 92
[2021-04-29 09:09] VITALS: PULSE 82
[2021-04-29] MEDS: METOPROLOL TARTRATE 50 MG TAB 100 MG PO (09:09)
[2021-04-29] MEDS: FOLIC ACID 1 MG TABLET PO (09:10)
[2021-04-29] MEDS: FUROSEMIDE 40 MG TABLET PO (09:10)
[2021-04-29] MEDS: MAGNESIUM OXIDE 400 MG TABLET PO (09:10)
[2021-04-29] MEDS: POTASSIUM CHLORIDE 20 MEQ TABLET.ER PO (09:10)
[2021-04-29] MEDS: lisinopriL 20 MG TABLET PO (09:10)
[2021-04-29] MEDS: DULoxetine HCL 60 MG CAPSULE.DR PO (09:10)
--- NOTE | 2021-04-29 09:27 | PM.PNCARD ---
Progress Note: A&P Assessment and Plan (1) Elevated troponin: Code(s): R77.8 - Other specified abnormalities of plasma proteins Status: Acute Assessment and Plan: Mild troponin elevation flat curve not consistent with acute coronary syndrome. No anginal symptoms, EKG without acute ischemic changes. Prior troponins mildly elevated suspect chronic. Secondary to history of LV dysfunction. History of minimal nonobstructive CAD by [facility] 2017. Patient has started therapy for possible pneumonia based on abnormal chest x-ray. Defer to primary service in this regard. (2) History of cardiomyopathy: Code(s): Z86.79 - Personal history of other diseases of the circulatory system Status: Acute Assessment and Plan: Patient is not in decompensated heart failure at present. Continue Lasix 40 mg daily p.o.. Monitor sodium levels closely. By echo May 2020 EF 20% previously normalized to 60-65%. Counseled patient on cardiotoxic effects of alcohol intake. Further recommendation to follow. Continue supportive medical therapy for history of cardiomyopathy. Change to Toprol XL 100 mg daily, continue SUKHDEV-inhibitor, not on aspirin as he is on Xarelto. (3) CAD (coronary artery disease): Code(s): I25.10 - Atherosclerotic heart disease of [place] coronary artery without angina pectoris Status: Acute Assessment and Plan: As above, no evidence of acute coronary syndrome or myocardial ischemia at this time. (4) Hypertension associated with type 2 diabetes mellitus: Code(s): E11.59 - Type 2 diabetes mellitus with other circulatory complications; I15.2 - Hypertension secondary to endocrine disorders Status: Acute Assessment and Plan: Not ideally controlled but fair. Continue to monitor. Continue home antihypertensive regimen. (5) Hyponatremia: Code(s): E87.1 - Hypo-osmolality and hyponatremia Status: Acute Assessment and Plan: Monitor sodium levels, continue diuretic therapy. May need to back depending upon trends. (6) Paroxysmal atrial fibrillation: Code(s): I48.0 - Paroxysmal atrial fibrillation Status: Acute Assessment and Plan: Maintaining sinus rhythm. AFib was not noted at admission as an explanation for his symptom complex. Patient has frequent PVCs. Continue telemetry. Potassium is low normal. Will give him 40 mEq p.o. x1 (7) Alcohol abuse: Code(s): F10.10 - Alcohol abuse, uncomplicated Status: Acute Assessment and Plan: Counseling performed (8) Hypomagnesemia: Code(s): E83.42 - Hypomagnesemia Status: Acute Assessment and Plan: Stable Subjective Date/time seen: 04/29/21 09:27 Interval history: 65-year-old admitted for fever. He is patient of mine and of seeing him follow-up. Date of service 04/29/2021: Feeling better. Wants to go home. No cardiac complaints of chest pain or shortness of breath or swelling Review of Systems Review of Systems: All systems reviewed & are unremarkable except as noted in HPI and below Constitutional: Constitutional: Reports as per HPI, Reports no additional constitutional complaints, Reports fatigue, Reports lethargy and Reports weakness Eyes: Eyes: Reports as per HPI and Reports no additional eye complaints ENT: Reports system reviewed and no additional complaints, except as documented and Reports as per HPI Cardiovascular: Cardiovascular: Reports as per HPI, Reports no additional cardiovascular complaints, Denies chest pain, Reports diaphoresis, Denies pedal edema, Denies leg edema, Reports lightheadedness, Denies palpitations, Reports dyspnea and Reports dyspnea on exertion Respiratory: Respiratory: Reports as per HPI, Reports no additional respiratory complaints, Denies cough, Reports dyspnea and Reports dyspnea on exertion Gastrointestinal: Gastrointestinal: Reports as per HPI, Reports no additional gastrointestinal complaints, Denies abdomina
--- NOTE | 2021-04-29 10:36 | PM.DS ---
DS: Admitting Diagnosis Admitting Diagnosis Admitting Diagnosis: fever, fatigue and malaise DS: Discharge Diagnosis Discharge Diagnosis (1) Pneumonia: Code(s): J18.9 - Pneumonia, unspecified organism Status: Acute Assessment and Plan: 04/28/21 14:02 04/25 patient is a 65-year-old male with history of atrial fibrillation, ischemic cardiomyopathy, and alcohol abuse presented emergency depart with complaint being malaise, fatigue and fever is 4 days, patient states he really feels sick as he has not drank his beer last today, patient had a chest x-ray suspicion for pneumonia I have started the patient on levaquin, upon arrival patient tropes was slightly elevated patient seen manufacturing design engineer does not suspect acute coronary syndrome most likely demand ischemia due to pneumonia, will continue to monitor. 04/26 patient did have a fever this morning however patient feels little better than yesterday not as tired and fatigued, patient is suspected to have pneumonia being treated Levaquin will follow-up on blood culture, repeat chest x-ray tomorrow, patient remains clinically stable seen by Cardiology and further recommendation to follow. 04/27 today patient is sitting on the side of the bed is feeling much denies any cough shortness of breath fever or chills, to further evaluate patient had chest x-ray showed masslike density left lower thorax, radiologist recommended CT scan to further evaluate will order and monitor, patient remains clinically stable, history of atrial fibrillation ischemic cardiomyopathy with ejection fraction of 20%, rate is controlled patient had a cardiac echo which showed substantial improvement in his ejection fraction of 65%, patient seen by Cardiology and appreciate. 04/28 there is suspicion patient may be positive COVID however chest X and CT scan of the chest did not show any COVID like pneumonia, patient patient had a chest x-ray there was a concern for lung mass to further evaluation patient had CT scan of the chest which does not show any malignancy or mass, CT scan of the chest did not show any pneumonia, currently patient states is feeling much better denies any cough shortness of breath fever or chills, will follow-up on COVID and further recommendation to follow if COVID reasoning and patient is clinically stable will discharge the patient home tomorrow (2) Paroxysmal atrial fibrillation: Code(s): I48.0 - Paroxysmal atrial fibrillation Status: Acute Assessment and Plan: Patient rate is controlled anticoagulated with Xarelto (3) Hyponatremia: Code(s): E87.1 - Hypo-osmolality and hyponatremia Status: Acute Assessment and Plan: Most likely secondary alcohol abuse, and dehydration will gently hydrate the patient and monitor (4) Elevated troponin: Code(s): R77.8 - Other specified abnormalities of plasma proteins Status: Acute Assessment and Plan: Patient with a mildly elevated tropes and flat, most likely demand ischemia unlikely acute coronary syndrome seen by manufacturing design engineer does not recommend any further workup DS: Summary Hospital Course Reason for hospitalization: patient is a 65-year-old male with history of atrial fibrillation, ischemic cardiomyopathy, and alcohol abuse presented emergency depart with complaint being malaise, fatigue and fever is 4 days, patient states he really feels sick as he has not drank his beer last today, patient had a chest x-ray suspicion for pneumonia I have started the patient on levaquin, upon arrival patient tropes was slightly elevated patient seen manufacturing design engineer does not suspect acute coronary syndrome most likely demand ischemia due to pneumonia, will continue to monitor. Patient will stay in hospital to midnight with pneumonia Chief Complaint: Pneumonia Hospital Course: 04/25 patient is a 65-year-old male with history of atrial fibrillation, ischemic cardiomyopathy, and alcohol abuse presented emergenc
[2021-04-29] MEDS: POTASSIUM CHLORIDE 20 MEQ TABLET 40 MEQ PO (11:41)
[2021-04-29 12:10] LABS: Add Urine Microscopic? YES; Appearance Urine Clear (Clear); Bacteria Urine Trace /hpf; Bilirubin Urine Negative (Negative); Blood Urine 1+ (Negative); Color Urine Amber (Yellow); Glucose Urine UA 3+ mg/dL (Negative); Ketones Urine Trace mg/dL (Negative); Leukocyte Esterase Ur Negative LEU/UL (Negative); Mucus Urine Rare /lpf; Nitrate Urine Negative (Negative); Protein Urine 1+ mg/dL (Negative); Specific Grav Ur 1.029 (1.001-1.035); WBC Urine 0-3 /hpf
== END 2021-04-29 12:30 | disposition home or self-care (01) ==
LOC: ANHED 10:00 → ANHIMU 11:04 → ANH3MEDSUR 04-28 13:04 → ANH2MED 05-01 11:03 → ANH3MEDSUR 05-01 11:03 → ANHIMU 05-01 11:03
PROVIDERS: Internal Medicine Cardiovascular Disease; Physician Assistant; Admitting Provider Internal Medicine; Emergency Provider Emergency Medicine; Visit Provider Family Medicine
DX: J18.9 Pneumonia, unspecified organism (principal); R77.8 Other specified abnormalities of plasma proteins; I48.0 Paroxysmal atrial fibrillation; R53.1 Weakness; E87.1 Hypo-osmolality and hyponatremia; E83.42 Hypomagnesemia; I25.10 Atherosclerotic heart disease of native coronary artery without angina pectoris; E11.59 Type 2 diabetes mellitus with other circulatory complications; I15.2 Hypertension secondary to endocrine disorders; E78.5 Hyperlipidemia, unspecified; F10.10 Alcohol abuse, uncomplicated; Z79.01 Long term (current) use of anticoagulants; Z87.891 Personal history of nicotine dependence; Z86.79 Personal history of other diseases of the circulatory system; Z20.822 Contact with and (suspected) exposure to COVID-19
CPT/HCPCS: 36415; 71046; 71260; 80048; 80053; 81001; 82948; 83605; 83735; 84145; 84443; 84484; 85025; 85027; 85055; 85610; 85730; 86140; 87040; 93005; 94762; 96361; 96365; 96366; 96375; 96376; 97110; 97116; 97161; 97165; 97535; 99285; A9270; C8929; C9803; G0378; J1956; J3475; J7030; Q9957; Q9967; U0003; U0005

== ENCOUNTER 2023-08-03 14:14 | Emergency (ER) | payer MEDICARE, SELFPAY ==
--- NOTE | 2023-08-03 14:17 | ED.BACK ---
HPI - Back Pain/Injury General Chief Complaint: Back Pain/Injury Stated Complaint: Pain in back and shoulder Time Seen by Provider: 08/03/23 14:15 Source: patient Mode of arrival: ambulatory Limitations: no limitations History of Present Illness HPI Narrative: Mr. Perez is a 67-year-old male patient presenting to the clinic today with complaints of back and shoulder pain times 2-3 days. He reports no known injury. He does have a history of chronic back pain but states that this pain is to the right lower back. States he feels as though he has got a knot in his muscle. Also reporting some muscle strain to the left side of his neck. Reports that the pain radiate into his shoulder and down to his elbow pain is a sharp ache. Rates pain currently a 7 at 10. Has been taking Tylenol without relief. Related Data Home Medications Medication Instructions Recorded Confirmed duloxetine 60 mg capsule,delayed 60 mg PO DAILY 10/26/19 08/03/23 release folic acid 1 mg tablet 1 mg PO DAILY 10/26/19 08/03/23 furosemide 40 mg tablet (Lasix) 40 mg PO DAILY 10/26/19 08/03/23 lisinopril 20 mg tablet 20 mg PO DAILY 10/26/19 08/03/23 magnesium oxide 400 mg PO DAILY 10/26/19 08/03/23 potassium chloride 20 mEq 20 meq PO DAILY 10/26/19 08/03/23 tablet,extended release rivaroxaban 20 mg tablet (Xarelto) 20 mg PO DAILY 10/26/19 08/03/23 atorvastatin 10 mg tablet 10 mg PO DAILY 08/03/23 08/03/23 bupropion HCl 300 mg 24 hr tablet, 300 mg PO DAILY 08/03/23 08/03/23 extended release empagliflozin 10 mg tablet 10 mg PO DAILY 08/03/23 08/03/23 (Jardiance) metoprolol tartrate 50 mg tablet 50 mg PO BID 08/03/23 08/03/23 Allergies Allergy/AdvReac Type Severity Reaction Status Date / Time Penicillins Allergy Intermediate Anaphylaxis Verified 08/03/23 14:19 Oewcayv-HNE-PqU Reductase AdvReac Mild Confusion Verified 08/03/23 14:19 Inhibitor [Uytahnc-Cur-Wog Reductase Inhibitor] Review of Systems Review of Systems: Pertinent positives per HPI. Patient denies any fever, chills, rash, headache, visual changes, dizziness, cough, runny nose, sore throat, shortness of breath, chest pain, palpitations, nausea, vomiting, diarrhea, constipation, abdominal pain, or any urinary issues. [facility] Past Medical History Medical History Atrial fibrillation Hyperlipidemia Hypertension Surgical History Surgical History History of back surgery Family History Family History Father Chronic obstructive pulmonary disease Congestive heart failure Lung cancer Mother Congestive heart failure Lung cancer Social History Social History Smoking packs per day: 1 Smoking cigarettes per day: 20.0 Years smoked: 20 Smoking pack-years: 20.00 Smoking status: Former smoker Tobacco type: cigarettes Second hand tobacco smoke exposure: No Alcohol intake: current Drinks per week: 21 Substance use: never Gender identity (if verbalized by the patient): Male Spiritual care concerns: No Comments At the time of my signature, I reviewed and agree with the nursing past medical, surgical, social, and family history. There is no relevant family history pertinent to the patient complaint. Exam Narrative: General: Well-developed, well nourished, in no apparent distress Head: Normocephalic, atraumatic. Cardio: Regular rate and rhythm, s1 and s2 normal, no murmur appreciated. Resp: Clear to auscultation bilaterally, no rhonchi, rales, wheezing or rubs. 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
[2023-08-03 14:23] VITALS: BP 108/84; PULSE 71; RESP 16; TEMP 36.6; O2SAT 98
[2023-08-03] MEDS: KETOROLAC (*BKC) 60 MG/2 ML VIAL IM (14:45)
== END 2023-08-03 14:55 | disposition home or self-care (01) ==
PROVIDERS: Emergency Provider Nurse Practitioner Family
DX: M54.50 Low back pain, unspecified (principal); S16.1XXA Strain of muscle, fascia and tendon at neck level, initial encounter; X58.XXXA Exposure to other specified factors, initial encounter; Z87.891 Personal history of nicotine dependence; I48.91 Unspecified atrial fibrillation; E78.5 Hyperlipidemia, unspecified; I10 Essential (primary) hypertension
CPT/HCPCS: 96372; 99213; G0463; J1885

== ENCOUNTER 2023-08-07 10:12 | Emergency (ER) | payer MEDICARE, SELFPAY ==
--- NOTE | ~2023-08-07 | XR_ITS ---
EXAMINATION: XR wrist LT min 3V DATE: 08/07/2023 10:33 INDICATION: Left wrist pain TECHNIQUE: Posteroanterior, ulnar deviation, oblique, and lateral views of the left wrist were obtain ed. COMPARISON: 10/26/2019 FINDINGS: There is no acute fracture. There is an old ulnar styloid avulsion. There is moderate osteo arthritis at the triscaphe joint and severe osteoarthritis at the first carpometacarpal joint. There is soft tissue swelling of the wrist. IMPRESSION: 1. Osteoarthritis without acute osseous abnormality. Reviewed, dictated and finalized at location L.
[2023-08-07 10:26] VITALS: BP 141/90; PULSE 72; RESP 16; TEMP 36.6; O2SAT 96
--- NOTE | 2023-08-07 10:35 | ED.UPPEXIN ---
HPI - Extremity Injury (Upper) General Chief Complaint: Extremity Injury, Upper Stated Complaint: Injured left arm Time Seen by Provider: 08/07/23 10:35 Source: patient, RN notes reviewed and old records reviewed Mode of arrival: ambulatory Limitations: no limitations History of Present Illness HPI narrative: 67-year-old male presents to the [facility] with complaints of left wrist pain post fall last night. States he got up in middle the night and fell with an outstretched arm. Tenderness with mild swelling over the dorsal aspect, distal ulna. No snuffbox tenderness. Has full range of motion but with pain with abducting in abducting of the wrist No treatment prior to arrival Denies hitting head. No loss of consciousness denies back pain. Related Data Home Medications Medication Instructions Recorded Confirmed duloxetine 60 mg capsule,delayed 60 mg PO DAILY 10/26/19 08/07/23 release folic acid 1 mg tablet 1 mg PO DAILY 10/26/19 08/07/23 furosemide 40 mg tablet (Lasix) 40 mg PO DAILY 10/26/19 08/07/23 lisinopril 20 mg tablet 20 mg PO DAILY 10/26/19 08/07/23 magnesium oxide 400 mg PO DAILY 10/26/19 08/07/23 potassium chloride 20 mEq 20 meq PO DAILY 10/26/19 08/07/23 tablet,extended release rivaroxaban 20 mg tablet (Xarelto) 20 mg PO DAILY 10/26/19 08/07/23 atorvastatin 10 mg tablet 10 mg PO DAILY 08/03/23 08/07/23 bupropion HCl 300 mg 24 hr tablet, 300 mg PO DAILY 08/03/23 08/07/23 extended release empagliflozin 10 mg tablet 10 mg PO DAILY 08/03/23 08/07/23 (Jardiance) metoprolol tartrate 50 mg tablet 50 mg PO BID 08/03/23 08/07/23 Allergies Allergy/AdvReac Type Severity Reaction Status Date / Time Penicillins Allergy Intermediate Anaphylaxis Verified 08/07/23 10:21 Kslkxsq-FIL-IiQ Reductase AdvReac Mild Confusion Verified 08/07/23 10:21 Inhibitor [Fvkawpt-Pst-Poe Reductase Inhibitor] Review of Systems Review of Systems: All systems reviewed & are unremarkable except as noted in HPI and below Constitutional: Constitutional: Reports no additional constitutional complaints Eyes: Eyes: Reports no additional eye complaints ENT: Reports system reviewed and no additional complaints, except as documented Cardiovascular: Cardiovascular: Reports no additional cardiovascular complaints, Denies chest pain and Denies dyspnea Respiratory: Respiratory: Reports no additional respiratory complaints, Denies chest congestion, Denies cough and Denies dyspnea Gastrointestinal: Gastrointestinal: Reports no additional gastrointestinal complaints, Denies abdominal pain, Denies nausea and Denies vomiting Musculoskeletal: Musculoskeletal: Reports as per HPI, Reports arthralgias (Left wrist) and Reports joint swelling (Dorsal left wrist) Integumentary/Breasts: Skin/Breast: Reports system reviewed and no additional complaints, except as docu Neurologic: Reports system reviewed and no additional complaints, except as documented Psychiatric: Psychiatric: Reports no additional psychiatric complaints Allergic/Immunologic: Allergic/Immunologic: Reports no additional allergic/immunologic complaints PMF Past Medical History Medical History Atrial fibrillation Hyperlipidemia Hypertension Surgical History Surgical History History of back surgery Family History Family History Father Chronic obstructive pulmonary disease Congestive heart failure Lung cancer Mother Congestive heart failure Lung cancer Social History Social History Smoking packs per day: 1 Smoking cigarettes per day: 20.0 Years smoked: 20 Smoking pack-years: 20.00 Smoking status: Former smoker Tobacco type: cigarettes Second hand tobacco smoke exposure: No Alcohol intake: current Drinks per week: 21
== END 2023-08-07 10:55 | disposition home or self-care (01) ==
PROVIDERS: Emergency Provider Nurse Practitioner
DX: S63.502A Unspecified sprain of left wrist, initial encounter (principal); M19.032 Primary osteoarthritis, left wrist; I48.91 Unspecified atrial fibrillation; E78.5 Hyperlipidemia, unspecified; I10 Essential (primary) hypertension; Z79.899 Other long term (current) drug therapy; Z79.01 Long term (current) use of anticoagulants; Z87.891 Personal history of nicotine dependence; W19.XXXA Unspecified fall, initial encounter
CPT/HCPCS: 73110; 99213; G0463

== ENCOUNTER 2023-09-11 15:57 | Emergency (ER) | payer MEDICARE, SELFPAY ==
[2023-09-11] VITALS (48 sets, daily range): BP systolic 121–145; BP diastolic 71–93; PULSE 55–68; RESP 10–25; TEMP 36.6; O2SAT 95–100
--- NOTE | ~2023-09-11 | XR_ITS ---
EXAMINATION: XR humerus RT INDICATION: Right upper extremity pain TECHNIQUE: Two views of the right upper extremity are obtained on four radiographs. COMPARISON: None available FINDINGS: There is anterior and inferior dislocation of the humeral head with respect to the glenoid. No definite fracture is identified. Alignment at the elbow is normal. There is moderate osteoarthrit is of the acromioclavicular joint. IMPRESSION: 1. Anterior and inferior dislocation of the humeral head with respect to the glenoid. Reviewed, dictated and finalized at location F. IMPRESSION: 1. Anterior and inferior dislocation of the humeral head with respect to the gl enoid.
--- NOTE | ~2023-09-11 | XR_ITS ---
EXAMINATION: XR shoulder RT min 2V INDICATION: Post reduction TECHNIQUE: Two views of the right shoulder are submitted. COMPARISON: 1631 hours FINDINGS: Normal alignment. No definite fracture is identified. There is moderate osteoarthritis of t he glenohumeral joint. Soft tissues are unremarkable. IMPRESSION: 1. Reduced shoulder dislocation. Reviewed, dictated and finalized at location F.
--- NOTE | 2023-09-11 16:02 | ECG_ITS ---
Measurements Intervals [place] Rate: 61 P: 48 CO: 207 QRS: -52 QRSD: 118 T: 43 QT: 469 QTc: 476 Interpretive Statements SINUS RHYTHM WITH OCCASIONAL VENTRICULAR PREMATURE COMPLEXES PATTERN CONSISTENT WITH PULMONARY DISEASE PROBABLE OLD iNFERIOR MYOCARDIAL INFARCTION BASELINE ARTIFACT POOR R-WAVE PROGRESSION COMPARED TO ECG 04/25/2021 07:21:06 NO SIGNIFICANT CHANGES Electronically Signed On 09-11-2023 19:57:09 CDT by Marisela Marroquin M.D.
--- NOTE | 2023-09-11 16:22 | ED.GENADULT ---
HPI - General Adult General Chief complaint: Syncope Stated complaint: fall - possible syncopal episode Time Seen by Provider: 09/11/23 16:01 History of Present Illness HPI narrative: 67-year-old male present to the emergency department for evaluation of right arm pain. Patient reports he was walking in to his home when he had onset of right arm pain that caused him to go down to the ground. Patient denied any associated chest pain with this. Patient is still having reproducible right arm pain. Patient does have a history of A-fib and is on Eliquis. Patient denies any previous history of coronary artery disease. Patient has had stress test and angiograms previously. Patient denies striking his head denies loss of consciousness. Related Data Home Medications Medication Instructions Recorded Confirmed duloxetine 60 mg capsule,delayed 60 mg PO DAILY 10/26/19 09/16/23 release folic acid 1 mg tablet 1 mg PO DAILY 10/26/19 09/16/23 furosemide 40 mg tablet (Lasix) 40 mg PO DAILY 10/26/19 09/16/23 lisinopril 20 mg tablet 20 mg PO DAILY 10/26/19 09/16/23 magnesium oxide 400 mg PO DAILY 10/26/19 09/16/23 potassium chloride 20 mEq 20 meq PO DAILY 10/26/19 09/16/23 tablet,extended release rivaroxaban 20 mg tablet (Xarelto) 20 mg PO DAILY 10/26/19 09/16/23 atorvastatin 10 mg tablet 10 mg PO DAILY 08/03/23 09/16/23 bupropion HCl 300 mg 24 hr tablet, 300 mg PO DAILY 08/03/23 09/16/23 extended release empagliflozin 10 mg tablet 10 mg PO DAILY 08/03/23 09/16/23 (Jardiance) metoprolol tartrate 50 mg tablet 50 mg PO BID 08/03/23 09/16/23 Allergies Allergy/AdvReac Type Severity Reaction Status Date / Time Penicillins Allergy Intermediate Anaphylaxis Verified 09/16/23 13:11 Vxuunem-TUP-UgA Reductase AdvReac Mild Confusion Verified 09/16/23 13:11 Inhibitor [Pmcnhox-Vqu-Zbx Reductase Inhibitor] Review of Systems Review of Systems: All systems reviewed & are unremarkable except as noted in HPI and below PMFSH Past Medical History Medical History Atrial fibrillation Hyperlipidemia Hypertension Surgical History Surgical History History of back surgery Family History Family History Father Chronic obstructive pulmonary disease Congestive heart failure Lung cancer Mother Congestive heart failure Lung cancer Social History Social History Smoking packs per day: 1 Smoking cigarettes per day: 20.0 Years smoked: 20 Smoking pack-years: 20.00 Smoking status: Former smoker Tobacco type: cigarettes Second hand tobacco smoke exposure: No Alcohol intake: current Drinks per week: 21 Substance use: never Gender identity (if verbalized by the patient): Male Spiritual care concerns: No Exam Narrative: APPEARANCE: Well appearing, no pain, no distress, well-nourished. HEAD: normocephalic, atraumatic. EYES: PERRLA/EOMI, conjunctivae clear. NOSE: Normal no drainage EARS:TMS clear with good light reflex. THROAT: Pharynx clear, no exudate. NECK: Supple. No adenopathy, no masses. RESPIRATORY: Airway patent, respirations nonlabored. Clear to auscultation bilaterally, no rales, rhonchi, wheezing. CARDIOVASCULAR: Regular rate and rhythm without murmurs rubs or gallops. ABDOMINAL: Soft, nontender, nondistended, normal bowel sounds MUSCULOSKELETAL: Right upper arm tenderness to palpation with decreased range of motion secondary to pain NEURO: Alert. Cranial nerves II through XII intact. Grossly intact SKIN: Warm, dry. Normal Color Course Course Emergency Course: 67 male present emerged department for evaluation of right shoulder pain. Patient denies having any syncope denies any chest pain with this. After having dislocated shoulder reduced patient does feel improved.
[2023-09-11 16:52] LABS: Basophils Absolute Auto 0.1 K/mm3 (0.0-0.1); Basophils Percent Auto 1.3 % (0.2-1.2); Eosinophils Absolute Auto 0.7 K/mm3 (0-0.3); Eosinophils Percent Auto 6.9 % (0-4.4); Hematocrit 43.7 % (42.0-52.0); Hemoglobin 14.2 g/dL (14.0-18.0); Immature Granulocyte Absolute 0.04 K/mm3 (0.00-0.031); Immature Granulocyte Percent A 0.4 % (0-0.5); Lymphocytes Absolute Auto 2.53 K/mm3 (0.9-3.2); Lymphocytes Percent Auto 24.6 % (18.3-44.2); Mean Corpuscular HGB Conc 32.5 g/dl (32-36); Mean Corpuscular Hemoglobin 32.9 pg (26-34); Mean Corpuscular Volume 101.2 fl (80-100); Mean Platelet Volume 10.1 fl (7.4-10.4); Monocytes Absolute Auto 0.9 K/mm3 (0.1-0.6); Monocytes Percent Auto 8.6 % (2.6-8.5); Neutrophils Percent Auto 58.2 % (45.5-73.1); Platelet Count Result 272 k/mm3 (150-375); Red Blood Count 4.32 M/mm3 (4.6-6.20); Red Cell Distribution Width 13.1 % (11.5-14.5); White Blood Count 10.3 K/mm3 (4.5-10.0)
[2023-09-11 17:16] LABS: Alanine Aminotransferase 30 U/L (6-50); Albumin Level 4.3 g/dL (3.5-5.1); Alkaline Phosphatase 65 U/L (38-126); Anion Gap 13 mmol/L (8-16); Aspartate Amino Transferase 36 U/L (17-59); Bilirubin,Total 0.7 mg/dL (0.2-1.3); Blood Urea Nitrogen 8 mg/dL (9-20); Calcium 8.8 mg/dL (8.4-10.2); Carbon Dioxide 25 mmol/L (22-30); Chloride 97 mmol/L (98-107); Estimated CRCL calculation 101 ml/min; Estimated Glomerular Filt Rate > 60; Glucose 160 mg/dL (65-110); Potassium 3.5 mmol/L (3.4-5.0); Sodium 135 mmol/L (137-145)
[2023-09-11 17:26] LABS: Troponin I < 0.012 ng/mL (0.000-0.034)
--- NOTE | 2023-09-11 18:03 | PC.NURSE ---
1735 pt placed on 2L NC for comfort during the procedure pts vitals were hr 62, O2 100% on 2L, eco2 29, rr 15, bp 130/75 MD administered 60mg of Propofol 1736 MD administered 40mg of Propofol due to pt still fully awake 1737 MD administered 50mg of Propofol due to pt still fully awake 1738 MD believes shoulder is in place 1739 pts vitals were hr 65, o2 95% on 2L, eco2 36, rr 25, bp 132/84 shoulder immobilizer applied to pts R shoulder 1745 pts opening eyes without stimuli 1747 confirmation XR R shoulder pts vitals were hr 63, o2 97% on 2L, co2 33, rr 17, bp 127/71 1756 pt having conversation with this RN but fell back asleep after pt arousable to verbal stimuli 1802 pts vitals were hr 61, o2 99% 2L, eco2 30, rr 17, bp 127/80
[2023-09-11 20:04] LABS: Troponin I 0.016 ng/mL (0.000-0.034)
== END 2023-09-11 21:00 | disposition home or self-care (01) ==
PROVIDERS: Emergency Provider Emergency Medicine
DX: S43.004A Unspecified dislocation of right shoulder joint, initial encounter (principal); I48.91 Unspecified atrial fibrillation; E78.5 Hyperlipidemia, unspecified; I10 Essential (primary) hypertension; Z79.01 Long term (current) use of anticoagulants; Z87.891 Personal history of nicotine dependence; W18.30XA Fall on same level, unspecified, initial encounter
CPT/HCPCS: 23650; 36415; 73030; 73060; 80053; 84484; 85025; 93005; 99285

== ENCOUNTER 2023-10-25 11:40 | Day surgery (SDC) | payer MEDICARE, SELFPAY ==
--- NOTE | ~2023-10-25 | CT_ITS ---
EXAMINATION: CT soft tissue neck chest w DATE: 10/25/2023 15:10 INDICATION: Evaluate for retained foreign object. TECHNIQUE: Computed tomography (CT) of the neck and chest was performed with 75 mL Omnipaque-350 intr avenous contrast. Automated exposure control and iterative reconstruction technique were employed. Th e dose-length product was 1225.27 mGy-cm. COMPARISON: CT chest 04/27/2021 FINDINGS: No radiopaque foreign body. The thyroid gland is unremarkable. The submandibular and parotid gland s are symmetric. There is no cervical lymphadenopathy. There are no masses identified. The airwa y is unremarkable. Parapharyngeal and pre-glottic fat planes are preserved. Moderate right and mi ld left carotid bifurcation calcifications. Mild arch calcification. The orbits are unremarkable. Nodular mucosal thickening in the left sphenoid and ethmoid air cells, the remaining aerated spaces a re clear. There is cervical spondylosis. CHEST: Thoracic aorta: No significant dilation. Mild arch calcification. Lung parenchyma and airways: Lungs and airways are clear. Thoracic inlet, axillae and chest wall: No thyroid or soft tissue mass. No axillary lymphadenopathy. Mediastinum: No mass or lymphadenopathy. Patulous, fluid-filled esophagus. 2.0 x 5.3 cm food bolus/fo cus of debris in the distal esophagus just proximal to the GE junction. Heart and pericardium: Normal heart size. Mitral calcification. No pericardial effusion. Coronary artery calcifications: Mild. Pleura: No effusion or mass. Upper abdomen: No significant finding. Thoracic bones: No acute osseous finding in the chest. IMPRESSION: 2.0 x 5.3 food bolus/base of debris in the distal esophagus with mild proximal esophageal dilation an d fluid. Reviewed, dictated and finalized at location K. Y MOBILE EQUIPMENT REPAIRER IMPRESSION: 2.0 x 5.3 food bolus/base of debris in the distal esophagus with mild proximal esophageal dilation and fluid.
[2023-10-25 11:42] VITALS: BP 154/75; PULSE 67; RESP 16; TEMP 36.8; O2SAT 96
[2023-10-25 13:46] LABS: Basophils Absolute Auto 0.1 K/mm3 (0.0-0.1); Basophils Percent Auto 1.5 % (0.2-1.2); Eosinophils Absolute Auto 0.4 K/mm3 (0-0.3); Eosinophils Percent Auto 5.6 % (0-4.4); Hematocrit 46.8 % (42.0-52.0); Immature Granulocyte Absolute 0.01 K/mm3 (0.00-0.031); Immature Granulocyte Percent A 0.1 % (0-0.5); Lymphocytes Absolute Auto 1.99 K/mm3 (0.9-3.2); Lymphocytes Percent Auto 29.3 % (18.3-44.2); Mean Corpuscular HGB Conc 32.1 g/dl (32-36); Mean Corpuscular Volume 103.1 fl (80-100); Mean Platelet Volume 10.6 fl (7.4-10.4); Monocytes Absolute Auto 0.7 K/mm3 (0.1-0.6); Monocytes Percent Auto 10.4 % (2.6-8.5); Neutrophils Absolute Auto 3.6 K/mm3 (1.3-6.7); Neutrophils Percent Auto 53.1 % (45.5-73.1); Platelet Count Result 295 k/mm3 (150-375); Red Blood Count 4.54 M/mm3 (4.6-6.20); Red Cell Distribution Width 12.6 % (11.5-14.5); White Blood Count 6.8 K/mm3 (4.5-10.0)
[2023-10-25] MEDS: SODIUM CHLORIDE 0.9% IV 1,000 ML 999 ML IV CONT (13:46)
[2023-10-25 13:57] LABS: INR 1.5; Prothrombin Time 19.1 Seconds (11.1-14.7)
[2023-10-25 14:46] LABS: Alanine Aminotransferase 27 U/L (6-50); Alkaline Phosphatase 69 U/L (38-126); Anion Gap 8 mmol/L (8-16); Aspartate Amino Transferase 32 U/L (17-59); Bilirubin,Total 1.2 mg/dL (0.2-1.3); Blood Urea Nitrogen 13 mg/dL (9-20); Calcium 8.8 mg/dL (8.4-10.2); Carbon Dioxide 27 mmol/L (22-30); Chloride 106 mmol/L (98-107); Estimated CRCL calculation 107 ml/min; Estimated Glomerular Filt Rate > 60; Glucose 137 mg/dL (65-110); Sodium 141 mmol/L (137-145)
--- NOTE | 2023-10-25 14:59 | ED.GENADULT ---
HPI - General Adult General Chief complaint: Unspecified Stated complaint: food stuck in throat Time Seen by Provider: 10/25/23 12:36 History of Present Illness HPI narrative: This is a 68-year-old male, with history of AFib on Xarelto, who presents to the emergency department with sensation of a foreign object stuck in his throat. The patient states he was eating rice last night, when he developed the sensation. He states he has felt this 2 times before but has previously been able to wash it down with liquids. he states he has not been able to relieve the sensation this time. He states he has had episodes of vomiting saliva and small particles of undigested food. He has no other complaints at this time. Related Data Home Medications Medication Instructions Recorded Confirmed duloxetine 60 mg capsule,delayed 60 mg PO DAILY 10/26/19 10/21/23 release folic acid 1 mg tablet 1 mg PO DAILY 10/26/19 10/21/23 furosemide 40 mg tablet (Lasix) 40 mg PO DAILY 10/26/19 10/21/23 lisinopril 20 mg tablet 20 mg PO DAILY 10/26/19 10/21/23 magnesium oxide 400 mg PO DAILY 10/26/19 10/21/23 potassium chloride 20 mEq 20 meq PO DAILY 10/26/19 10/21/23 tablet,extended release rivaroxaban 20 mg tablet (Xarelto) 20 mg PO DAILY 10/26/19 10/21/23 atorvastatin 10 mg tablet 10 mg PO DAILY 08/03/23 10/21/23 bupropion HCl 300 mg 24 hr tablet, 300 mg PO DAILY 08/03/23 10/21/23 extended release empagliflozin 10 mg tablet 10 mg PO DAILY 08/03/23 10/21/23 (Jardiance) metoprolol tartrate 50 mg tablet 50 mg PO BID 08/03/23 10/21/23 Allergies Allergy/AdvReac Type Severity Reaction Status Date / Time Penicillins Allergy Intermediate Anaphylaxis Verified 10/25/23 11:46 Pvtipjk-XTA-XaH Reductase AdvReac Mild Confusion Verified 10/25/23 11:46 Inhibitor [Xmgyodx-Bsv-Xoo Reductase Inhibitor] Review of Systems Review of Systems: CONSTITUTIONAL: Denies fever, chills, or sweats. CARDIOVASCULAR: Denies chest pain, palpitations, or edema. RESPIRATORY: Denies cough or dyspnea. GASTROINTESTINAL: Foreign body sensation in throat. Vomiting Denies nausea, or diarrhea. GENITOURINARY: Denies dysuria or hematuria. SKIN: Denies rash or itching. MUSCULOSKELETAL: Denies back pain, joint pain, or myalgia. NEUROLOGIC: Denies headache, numbness, dizziness, or weakness. PSYCHIATRIC: Denies anxiety or depression. [facility] Past Medical History Medical History Atrial fibrillation paroxysmal Congestive heart failure (CHF) Diabetes Hyperlipidemia Hypertension Ischemic cardiomyopathy Surgical History Surgical History History of back surgery Family History Family History Father Chronic obstructive pulmonary disease Congestive heart failure Lung cancer Mother Congestive heart failure Lung cancer Social History Social History Smoking packs per day: 1 Smoking cigarettes per day: 20.0 Years smoked: 20 Smoking pack-years: 20.00 Smoking status: Former smoker Tobacco type: cigarettes Second hand tobacco smoke exposure: No Alcohol intake: current Drinks per week: 21 Substance use: never Gender identity (if verbalized by the patient): Male Spiritual care concerns: No Exam Narrative: GENERAL: Well-appearing, well-nourished, and in no acute distress. HEAD: Normocephalic, atraumatic. EYES: PERRLA and EOMI. CHEST: Clear to auscultation. No respiratory distress. No wheezes rales or rhonchi HEART: Regular rate and rhythm. No murmur heard. Normal peripheral pulses. ABDOMEN: Soft, nontender, nondistended, normal active bowel sounds. EXTREMITIES: Normal range of motion. No edema. SKIN: Warm, dry, no rash. NEURO: No focal deficits. Alert and oriented x3. PSYCH: Normal mood and affect. Course Co
[2023-10-25] MEDS: ONDANSETRON INJ 4 MG/2 ML VIAL IV PUSH (15:12)
[2023-10-25] MEDS: GLUCAGON FOR INJ 1 MG VIAL IM (15:12)
[2023-10-25 16:29] VITALS: BP 133/68; PULSE 60; RESP 18; TEMP 36.7; O2SAT 100
--- NOTE | 2023-10-25 17:06 | WPDANESEPP ---
Anes - Eval Pre Procedure Procedure: Removal Food Bolus Date/Time: 10/25/23 17:06 Surgeon: Bacilio Preop Diagnosis: Food Bolus Pre Op Diagnosis: food stuck in throat Patient Data Age: 68 Gender: M Height: 1.8 m Weight: 104.5 kg Last Vital Signs Temp 98.1 F 10/25/23 16:29 Pulse 60 10/25/23 16:29 Resp 18 10/25/23 16:29 BP 133/68 10/25/23 16:29 Pulse Ox 100 10/25/23 16:29 Allergies Allergy/AdvReac Type Severity Reaction Status Date / Time Penicillins Allergy Intermediate Anaphylaxis Verified 10/25/23 11:46 Cllxujk-GUS-HvR Reductase AdvReac Mild Confusion Verified 10/25/23 11:46 Inhibitor [Mgdwizz-Ely-Lbj Reductase Inhibitor] Home Medications Medication Instructions Recorded Confirmed Type duloxetine 60 mg capsule,delayed 60 mg PO DAILY 10/26/19 10/21/23 History release folic acid 1 mg tablet 1 mg PO DAILY 10/26/19 10/21/23 History furosemide 40 mg tablet (Lasix) 40 mg PO DAILY 10/26/19 10/21/23 History lisinopril 20 mg tablet 20 mg PO DAILY 10/26/19 10/21/23 History magnesium oxide 400 mg PO DAILY 10/26/19 10/21/23 History potassium chloride 20 mEq 20 meq PO DAILY 10/26/19 10/21/23 History tablet,extended release rivaroxaban 20 mg tablet (Xarelto) 20 mg PO DAILY 10/26/19 10/21/23 History atorvastatin 10 mg tablet 10 mg PO DAILY 08/03/23 10/21/23 History baclofen 10 mg tablet 10 mg PO TID PRN muscle spasm 7 08/03/23 10/21/23 Rx days #21 tabs bupropion HCl 300 mg 24 hr tablet, 300 mg PO DAILY 08/03/23 10/21/23 History extended release empagliflozin 10 mg tablet 10 mg PO DAILY 08/03/23 10/21/23 History (Jardiance) methylprednisolone 4 mg tablets in See Rx Instructions PO .COMPLEX 08/03/23 10/21/23 Rx a dose pack (Medrol (Francisco)) #21 ea metoprolol tartrate 50 mg tablet 50 mg PO BID 08/03/23 10/21/23 History Laboratory Tests 10/25/23 10/25/23 13:40 14:07 WBC 6.8 K/mm3 (4.5-10.0) RBC 4.54 L M/mm3 (4.6-6.20) Hgb 15.0 g/dL (14.0-18.0) Hct 46.8 % (42.0-52.0) MCV 103.1 H fl (80-100) MCH 33.0 pg (26-34) MCHC 32.1 g/dl (32-36) RDW 12.6 % (11.5-14.5) Plt Count 295 k/mm3 (150-375) MPV 10.6 H fl (7.4-10.4) Immature Gran % (Auto) 0.1 % (0-0.5) Neut % (Auto) 53.1 % (45.5-73.1) Lymph % (Auto) 29.3 % (18.3-44.2) [place] % (Auto) 10.4 H % (2.6-8.5) Eos % (Auto) 5.6 H % (0-4.4) Baso % (Auto) 1.5 H % (0.2-1.2) Lymph # (Auto) 1.99 K/mm3 (0.9-3.2) [place] # (Auto) 0.7 H K/mm3 (0.1-0.6) Eos # (Auto) 0.4 H K/mm3 (0-0.3) Baso # (Auto) 0.1 K/mm3 (0.0-0.1) Abs Immat Gran (auto) 0.01 K/mm3 (0.00-0.031) Absolute Neuts (auto) 3.6 K/mm3 (1.3-6.7) Absolute Nucleated RBC 0.0 K/mm3 (0.0-0.012) Nucleated RBC % 0.0 % (0.0-0.2) PT 19.1 H Seconds (11.1-14.7) INR 1.5 Sodium 141 mmol/L (137-145) Potassium 4.0 mmol/L (3.4-5.0) Chloride 106 mmol/L (98-107) Carbon Dioxide 27 mmol/L (22-30) Anion Gap 8 mmol/L (8-16) BUN 13 D mg/dL (9-20) Creatinine 0.70 mg/dL (0.7-1.3) Estim Creat Clear Calc 107 ml/min Estimated GFR > 60 (59 - ) Glucose 137 H mg/dL (65-110) Calcium 8.8 mg/dL (8.4-10.2) Total Bilirubin 1.2 mg/dL (0.2-1.3) AST 32 U/L (17-59) ALT 27 U/L (6-50) Alkaline Phosphatase 69 U/L (38-126) Total Protein 7.0 g/dL (6.3-8.2) Albumin 4.0 g/dL (3.5-5.1) EC09/11/23 SR w/PVCs Patient hx anesthesia problems: none Family hx anesthesia problems: none Results Review: All pre-operative results and documents have been reviewed as part of the pre-operative evaluation. [facility] Past Medical History Medical History (Updated 10/25/23 @ 17:14 by Naina Najera CRNA) Atrial fibrillation paroxysmal Congest
--- NOTE | 2023-10-25 17:12 | PC.NURSE ---
Report given to Joselin IQBAL from OR at this time.
[2023-10-25 17:35] VITALS: BP 140/81; PULSE 62; RESP 21; TEMP 36.4; O2SAT 100
[2023-10-25] MEDS: LACTATED RINGERS 1,000 ML 150 ML IV CONT (17:37)
--- NOTE | 2023-10-25 17:40 | PM.HPGS ---
History of Present Illness History of Present Illness Consent: Risks, benefits, and alternatives have been discussed and questions answered. Patient agrees to proceed with procedure. Chief complaint: food stuck in throat Narrative: Stanford Perez is a 68 year old male who presents emergency room today with a foreign body of the esophagus. He was eating rice and beef yesterday at realized that it had not passed. He has not been able to swallow even saliva today. He has had issues with dysphagia in the past. There often with meat or rice but always with past after while or after taking some water. He he does not have heartburn. He does not take anything for acid reflux. He has not been losing weight. He denies abdominal pain. Does have atrial fibrillation for which he takes Xarelto, last dose was 2 nights ago. Review of Systems Review of Systems: All systems reviewed & are unremarkable except as noted in HPI and below PMFSH Past Medical History Medical History Atrial fibrillation paroxysmal Congestive heart failure (CHF) Diabetes Hyperlipidemia Hypertension Ischemic cardiomyopathy Surgical History Surgical History History of back surgery Family History Family History Father Chronic obstructive pulmonary disease Congestive heart failure Lung cancer Mother Congestive heart failure Lung cancer Social History Social History Smoking packs per day: 1 Smoking cigarettes per day: 20.0 Years smoked: 20 Smoking pack-years: 20.00 Smoking status: Former smoker Tobacco type: cigarettes Second hand tobacco smoke exposure: No Alcohol intake: current Drinks per week: 21 Substance use: never Gender identity (if verbalized by the patient): Male Spiritual care concerns: No Meds Home Medications and Allergies Home Medications Medication Instructions Recorded Confirmed Type duloxetine 60 mg capsule,delayed 60 mg PO DAILY 10/26/19 10/21/23 History release folic acid 1 mg tablet 1 mg PO DAILY 10/26/19 10/21/23 History furosemide 40 mg tablet (Lasix) 40 mg PO DAILY 10/26/19 10/21/23 History lisinopril 20 mg tablet 20 mg PO DAILY 10/26/19 10/21/23 History magnesium oxide 400 mg PO DAILY 10/26/19 10/21/23 History potassium chloride 20 mEq 20 meq PO DAILY 10/26/19 10/21/23 History tablet,extended release rivaroxaban 20 mg tablet (Xarelto) 20 mg PO DAILY 10/26/19 10/21/23 History atorvastatin 10 mg tablet 10 mg PO DAILY 08/03/23 10/21/23 History baclofen 10 mg tablet 10 mg PO TID PRN muscle spasm 7 08/03/23 10/21/23 Rx days #21 tabs bupropion HCl 300 mg 24 hr tablet, 300 mg PO DAILY 08/03/23 10/21/23 History extended release empagliflozin 10 mg tablet 10 mg PO DAILY 08/03/23 10/21/23 History (Jardiance) methylprednisolone 4 mg tablets in See Rx Instructions PO .COMPLEX 08/03/23 10/21/23 Rx a dose pack ([employer] (Francisco)) #21 ea metoprolol tartrate 50 mg tablet 50 mg PO BID 08/03/23 10/21/23 History Allergies Allergy/AdvReac Type Severity Reaction Status Date / Time Penicillins Allergy Intermediate Anaphylaxis Verified 10/25/23 11:46 Ejcsubo-UZJ-PjJ Reductase AdvReac Mild Confusion Verified 10/25/23 11:46 Inhibitor [Ebbzvvg-Iaf-Rld Reductase Inhibitor] Vital Signs Vital Signs - 24 hr 10/25/23 11:42 10/25/23 16:29 10/25/23 17:35 Temperature 36.8 C 36.7 C 36.4 C Pulse Rate 67 60 62 Respiratory Rate 16 18 21 H Blood Pressure 154/75 H 133/68 140/81 Pulse Oximetry 96 100 100 Oxygen Delivery Room Air Exam Const: General: alert Orientation/consciousness: patient oriented x3 Resp: Auscultation: clear to auscultation bilaterally Cardio: Rhythm: regular rhythm GI: GI Palp: Yes Soft to palpation and No Tenderness to palpation p
[2023-10-25 18:01] VITALS: BP 132/84; PULSE 71; RESP 20; O2SAT 97
[2023-10-25 18:11] VITALS: BP 133/82; PULSE 63; RESP 18; O2SAT 97
--- NOTE | 2023-10-25 18:16 | SUR.PHASEII ---
Patient pre oped, and recovered in procedure room 3.
[2023-10-25 18:21] VITALS: BP 141/75; PULSE 64; RESP 18; O2SAT 95
== END 2023-10-25 18:38 | disposition home or self-care (01) ==
LOC: ANHED 13:18 → ANHSURGERY 16:23
PROVIDERS: Emergency Provider Preventive Medicine Aerospace Medicine; Visit Provider Internal Medicine Gastroenterology
PROC: 0DJ08ZZ Inspection of Upper Intestinal Tract, Via Natural or Artificial Opening Endoscopic (ICD-10-PCS; CPT 43235; principal; 2023-10-25 17:30)
DX: K22.2 Esophageal obstruction (principal); K20.0 Eosinophilic esophagitis; T18.128A Food in esophagus causing other injury, initial encounter; K29.70 Gastritis, unspecified, without bleeding; I48.0 Paroxysmal atrial fibrillation; E78.5 Hyperlipidemia, unspecified; I25.5 Ischemic cardiomyopathy; I11.0 Hypertensive heart disease with heart failure; I50.9 Heart failure, unspecified; E11.9 Type 2 diabetes mellitus without complications; Z87.891 Personal history of nicotine dependence; Z79.01 Long term (current) use of anticoagulants; Z79.84 Long term (current) use of oral hypoglycemic drugs
CPT/HCPCS: 43239; 43247; 36415; 70491; 71260; 80053; 85025; 85610; 88305; 96361; 96372; 96374; 99285; J1610; J2405; J7030; J7120; Q9967

== ENCOUNTER 2024-01-22 07:53 | Outpatient (CLI) | payer MEDICARE, SELFPAY ==
--- NOTE | ~2024-01-22 | MR_ITS ---
EXAMINATION: MR brain/brain stem wo con DATE: 01/22/2024 08:29 INDICATION: Dizziness and giddiness TECHNIQUE: Magnetic resonance imaging (MRI) of the brain and brainstem was performed without intraven ous contrast. Sequences included sagittal and axial T1-weighted SE, axial diffusion-weighted FS SE, a xial T2*-weighted GRE, axial T2-weighted FLAIR, and axial T2-weighted FSE. Apparent diffusion coeffic ient (ADC) maps were created. COMPARISON: Head CT dated 05/27/2018 FINDINGS: There are no areas of restricted diffusion to suggest acute infarction. Small old lacunar infarct in the right frontal lobe centrum semiovale. No intracranial hemorrhage or abnormal intracranial mass le mickey. There are scattered areas of nonspecific increased T2-weighted signal intensity in the cerebral and pontine white matter, predominantly involving the deep and periventricular white matter. There a re no intraparenchymal signal abnormalities seen on the other pulse sequences. Symmetric prominence o f the sulci and ventricles consistent with moderate diffuse cerebral volume loss which is disproporti jose daniel for age. There are no abnormal extra-axial fluid collections. Flow voids are seen in the cerebr al arteries on the T2-weighted sequences consistent with their expected patency. There are couple sma ll chronic mucous retention cyst in the left sphenoid and right ethmoid sinuses. Visualized orbits an d soft tissues are unremarkable. IMPRESSION: 1. Unchanged small old lacunar infarct in the right frontal centrum semiovale. No acute intracranial process. 2. Stable appearance of moderate diffuse volume loss which remains disproportionate for age. 3. Moderate scattered nonspecific cerebral and pontine white matter T2 hyperintensity likely sequela of chronic small vessel ischemic disease. Reviewed, dictated and finalized at location A. IZATION MANAGER IMPRESSION: 1. Unchanged small old lacunar infarct in the right frontal centrum semiovale. No acute intracranial process. 2. Stable appearance of moderate diffuse volume loss which remains disproportio cookie for age. 3. Moderate scattered nonspecific cerebral and pontine white matter T2 hyperint ensity likely sequela of chronic small vessel ischemic disease.
--- NOTE | ~2024-01-22 | XR_ITS ---
AP and oblique views of the left ribs Clinical History: Pain Findings: No rib fracture is seen. Osseous alignment is anatomic. Lungs are clear, without focal cons olidation or pleural effusion. Cardiomediastinal contour is within normal limits. Soft tissues are un remarkable. Impression: No rib fracture is seen. Reviewed, dictated and finalized at [facility]. O TECHNICIAN Impression: No rib fracture is seen.
== END 2024-01-22 07:54 ==
LOC: MICIMG 07:54
PROVIDERS: PCP Internal Medicine; Visit Provider Internal Medicine
DX: R42 Dizziness and giddiness (principal); R93.0 Abnormal findings on diagnostic imaging of skull and head, not elsewhere classified
CPT/HCPCS: 70551; 71100

== ENCOUNTER 2024-03-01 09:21 | Observation (INO) | payer MEDICARE, SELFPAY ==
[2024-03-01] VITALS (39 sets, daily range): BP systolic 123–160; BP diastolic 56–95; PULSE 63–98; RESP 12–20; TEMP 36.2–37.1; O2SAT 94–100; BMI 32.0
--- NOTE | ~2024-03-01 | XR_ITS ---
Clinical Indication: Shortness of breath PA and lateral views of the chest: Comparison: 01/22/2024 Findings: Bibasilar nipple shadows noted. The lungs are clear, without evidence of focal consolidatio n or pleural effusion. Cardiomediastinal silhouette is within normal limits. Bones and soft tissues are unremarkable. Impression: Clear lungs. Reviewed, dictated and finalized at location M. Impression: Clear lungs.
--- NOTE | ~2024-03-01 | CT_ITS ---
EXAMINATION: CT abdomen pelvis w con DATE: 03/01/2024 12:06 INDICATION: Acute anemia one month post left abdominal trauma TECHNIQUE: Computed tomography (CT) of the abdomen and pelvis was performed with 100 mL Omnipaque-350 intravenous contrast. Automated exposure control and iterative reconstruction technique were employe d. The dose-length product was 1349.07 mGy-cm. COMPARISON: None FINDINGS: Mild basilar atelectasis at the lingula. Heart size is normal. Mitral annular calcification. No peric ardial or pleural effusion. Numerous small calcified gallstones along the dependent wall of the other garvey normal gallbladder. There is some liver surface nodularity suspicious for cirrhosis. No evident choledocholithiasis or intra or extrahepatic biliary ductal dilation. Spleen, pancreas, bilateral adr enal glands and left kidney are normal. 9 mm right renal cyst. There is mild colonic diverticulosis w ith a sigmoid and descending colon predominance without adjacent inflammatory change to suggest diver ticulitis. Normal appendix. Short segment of nonobstructed small bowel extends slightly into the orif ice of a small widemouthed fat-containing umbilical hernia. Bladder is normal. Small amount fat withi n the bilateral inguinal canals which could relate inguinal hernias or body habitus. Small right hydr ocele. Mild presacral edema. No free intraperitoneal gas or fluid. No pathologically enlarged abdomin al or pelvic lymphadenopathy. Mild thoracolumbar dextrocurvature with moderate lumbar and lower thora cic spondylosis. Severe spondylosis with fusion across the margins of the L5-S1 disc space. There is also ankylosis anteriorly at the bilateral sacral iliac joints. IMPRESSION: 1. Cholelithiasis. 2. Nodular liver suggestive of cirrhosis. 3. Diverticulosis. 4. Short segment of nonobstructed small bowel extends into the orifice of a small widemouthed umbilic al hernia. 5. Small right hydrocele. 6. Bilateral small fat-containing inguinal hernias versus increased fat within the inguinal canals re lated to body habitus. Reviewed, dictated and finalized at location A. IMPRESSION: 1. Cholelithiasis. 2. Nodular liver suggestive of cirrhosis. 3. Diverticulosis. 4. Short segment of nonobstructed small bowel extends into the orifice of a sma ll widemouthed umbilical hernia. 5. Small right hydrocele. 6. Bilateral small fat-containing inguinal hernias versus increased fat within the inguinal canals related to body habitus.
[2024-03-01 09:52] LABS: Basophils Absolute Auto 0.1 K/mm3 (0.0-0.1); Basophils Percent Auto 1.4 % (0.2-1.2); Eosinophils Absolute Auto 0.2 K/mm3 (0-0.3); Eosinophils Percent Auto 2.4 % (0-4.4); Hematocrit 24.7 % (42.0-52.0); Immature Granulocyte Absolute 0.01 K/mm3 (0.00-0.031); Immature Granulocyte Percent A 0.2 % (0-0.5); Lymphocytes Percent Auto 27.4 % (18.3-44.2); Mean Corpuscular HGB Conc 27.1 g/dl (32-36); Mean Corpuscular Hemoglobin 19.2 pg (26-34); Mean Corpuscular Volume 70.8 fl (80-100); Monocytes Absolute Auto 0.8 K/mm3 (0.1-0.6); Monocytes Percent Auto 12.7 % (2.6-8.5); Neutrophils Absolute Auto 3.7 K/mm3 (1.3-6.7); Neutrophils Percent Auto 55.9 % (45.5-73.1); Platelet Count Result 333 k/mm3 (150-375); Red Blood Count 3.49 M/mm3 (4.6-6.20); Red Cell Distribution Width 17.2 % (11.5-14.5); White Blood Count 6.6 K/mm3 (4.5-10.0)
[2024-03-01 10:09] LABS: Alanine Aminotransferase 17 U/L (6-50); Alkaline Phosphatase 65 U/L (38-126); Anion Gap 4 mmol/L (4-12); Aspartate Amino Transferase 32 U/L (17-59); Bilirubin,Total 0.6 mg/dL (0.2-1.3); Blood Urea Nitrogen 10 mg/dL (9-20); Carbon Dioxide 28 mmol/L (22-30); Chloride 104 mmol/L (98-107); Estimated CRCL calculation 98 ml/min; Estimated Glomerular Filt Rate > 60; Glucose 174 mg/dL (65-110); INR 1.5; Potassium 4.4 mmol/L (3.4-5.0); Prothrombin Time 19.5 Seconds (11.1-14.7); Sodium 136 mmol/L (137-145)
[2024-03-01 10:10] LABS: Hemoglobin 6.7 g/dL (14.0-18.0); Partial Thromboplastin Time 36.9 Seconds (22.3-36.8)
[2024-03-01 10:11] LABS: Anisocytosis 1+; Hypochromasia 2+; Platelet Estimate Adequate (Adequate); Poikilocytosis 1+; Target Cells 1+
[2024-03-01 10:12] LABS: Ovalocytes 1+
[2024-03-01 10:13] LABS: Schistocytes Rare; Stomatocytes 1+
--- NOTE | 2024-03-01 10:18 | ED.RECABL ---
HPI - Recheck/Abnormal Lab/Rx General Chief Complaint: Recheck/Abnormal Lab/Rx <Yolie Giraldo PA-C - Last Filed: 03/01/24 19:13> Stated Complaint: low hemoglobin <Yolie Giraldo PA-C - Last Filed: 03/01/24 19:13> Time Seen by Provider: 03/01/24 09:33 <DAVID Sanderson Last Filed: 03/01/24 19:13> Source: patient and old records reviewed <DAVID Sanderson Last Filed: 03/01/24 19:13> Mode of arrival: ambulatory <DAVID Sanderson Last Filed: 03/01/24 19:13> Limitations: no limitations <DAVID Sanderson Last Filed: 03/01/24 19:13> History of Present Illness HPI narrative: Patient is a 68-year-old male who presents the ED with report of abnormal labs. Patient reports he has been dealing with positional dizziness and shortness breath with exertion over the last few months, since the beginning of the year. He has been seen his budget officer and ENT specialist with so far negative workups. Patient had routine blood work obtained on Friday at an outpatient lab and was notified this morning to go to the ED due to critically low hemoglobin. Patient denies history of anemia in the past. Has never required blood transfusions in the past. States he has blood work performed 4 times a year with his PCP and his hemoglobins have always been normal. He denies any recent bleeding. He is on Xarelto due to history of paroxysmal AFib. Denies rectal bleeding, melena, hematuria, epistaxes, wounds, rashes. Denies CP. Denies BLE pain or swelling. Last had colonoscopy he believes at age 62. <DAVID Sanderson Last Filed: 03/01/24 19:13> Related Data Home Medications: Home Medications Medication Instructions Recorded Confirmed duloxetine 60 mg capsule,delayed 60 mg PO DAILY 10/26/19 03/01/24 release folic acid 1 mg tablet 1 mg PO DAILY 10/26/19 03/01/24 furosemide 40 mg tablet (Lasix) 20 mg PO DAILY 10/26/19 03/01/24 magnesium oxide 400 mg PO DAILY 10/26/19 03/01/24 potassium chloride 20 mEq 20 meq PO HS 10/26/19 03/01/24 tablet,extended release rivaroxaban 20 mg tablet (Xarelto) 20 mg PO HS 10/26/19 10/21/23 atorvastatin 10 mg tablet 10 mg PO DAILY 08/03/23 03/01/24 bupropion HCl 300 mg 24 hr tablet, 300 mg PO HS 08/03/23 03/01/24 extended release empagliflozin 10 mg tablet 10 mg PO DAILY 08/03/23 03/01/24 (Jardiance) metoprolol tartrate 50 mg tablet 25 mg PO BID 08/03/23 03/01/24 <Yolie Giraldo PA-C - Last Filed: 03/01/24 19:13> Allergies/Adverse Reactions: Allergies Allergy/AdvReac Type Severity Reaction Status Date / Time Penicillins Allergy Intermediate Anaphylaxis Verified 03/01/24 09:22 Yeplapb-OHZ-SuD Reductase AdvReac Mild Confusion Verified 03/01/24 09:22 Inhibitor [Omzwtyz-Azq-Gzp Reductase Inhibitor] <Yolie Giraldo PA-C - Last Filed: 03/01/24 19:13> Review of Systems Review of Systems: CONSTITUTIONAL: Denies fever, chills, or sweats. CARDIOVASCULAR: Denies chest pain, palpitations, or edema. RESPIRATORY: See HPI. GASTROINTESTINAL: Denies abdominal pain, rectal bleeding, melena, nausea, vomiting, or diarrhea. GENITOURINARY: Denies dysuria or hematuria. NEUROLOGIC: See HPI. <Yolie Giraldo PA-C - Last Filed: 03/01/24 19:13> All systems reviewed & are unremarkable except as noted in HPI and below <Yolie Giraldo PA-C - Last Filed: 03/01/24 19:13> [facility] Past Medical History Medical History: Medical History Abnormal CT scan, liver Atrial fibrillation paroxysmal Congestive heart failure (CHF) Diabetes Hyperlipidemia Hypertension Ischemic cardiomyopathy <Yolie Giraldo PA-C - Last Filed: 03/01/24 19:13> Surgical History Surgical History: Surgical History History of back surgery <Yolie Sprague
--- NOTE | 2024-03-01 10:19 | ECG_ITS ---
SEE SCANNED COPY FOR CONFIRMED REPORT MTDD
[2024-03-01 10:32] LABS: Immature Reticulocyte Fraction 26.7 % (3.0-15.9); Reticulocyte Hemoglobin Conten 15.9 pg (28.2-36.6); Reticulocyte Percent 2.13 % (0.7-4.3); Reticulocytes Absolute 0.07 10^6/uL (0.02-0.10)
[2024-03-01 10:39] LABS: Iron 27 ug/dL (49-181)
[2024-03-01 10:54] LABS: NT Pro B Type Natriuretic Pept 375 pg/mL (19.9-100); Troponin I < 0.012 ng/mL (0.000-0.034)
[2024-03-01 10:55] LABS: Percent Iron Saturation 5 % (20-50)
[2024-03-01 11:06] LABS: Transferrin 415 mg/dL (206-381)
[2024-03-01 11:18] LABS: Ferritin 7.85 ng/mL (11.1-264)
[2024-03-01 12:06] LABS: Folic Acid > 20.0 ng/mL (2.76->20)
[2024-03-01] MEDS: SODIUM CHLORIDE 0.9% IV 250 ML 30 ML IV CONT (12:15)
[2024-03-01] MEDS: TUBING, BLOOD PLUM PUMP TUBING 1 EACH XX (12:15)
--- NOTE | 2024-03-01 12:58 | PM.IMHP ---
H&P: HPI History of Present Illness Date/Time: 03/01/24 12:58 Chief Complaint: Abnormal labs. Narrative: This is a 68-year-old male with a past medical history of AFib, ischemic cardiomyopathy, alcohol abuse, hypertension, hyperlipidemia presents to the ED on 03/01/2024 with chief complaint of abnormal labs. Patient is unable to tell me much about his medical history and states I no idea what I take medications for . Patient had been getting routine blood work on 02/27/2024 an outpatient lab and was called this morning to come into the ED. Patient was found to have a hemoglobin and hematocrit of 6.7/24.7 peer patient has recently been experiencing increased dizziness with changes of position, lightheadedness and shortness of breath with exertion over the past couple months. Patient sees Dr. Plunkett as an outpatient and their office were the ones to call about his abnormal labs. He has not gotten any follow up labs since last admission. Patient has no history of anemia and has never required a blood transfusion in the past. He is on Xarelto for his paroxysmal AFib. This was been put on hold. He denies rectal bleeding, melena, hematuria, or hematemesis. Patient believes his last colonoscopy was at the age of 62. Patient drinks approximately 4 beers a day. He states he has cut back since diagnosis of A-Fib in 2022. He denies history of withdrawal and tremors. Vital signs: BP 130/72, pulse 65, RR 14, temp 97.9?, O2 sat 100 RA In the ED: patient was found with a hemoglobin and hematocrit of 6.7/24.7, low MCV at 70.8, iron 27, TIBC 536,% saturation 5, transferrin 415, ferritin 7.85, B12 260, folate greater than 20. BNP slightly elevated at 375. TSH 2.2. CXR clear lungs. CT abdomen pelvis showing cholelithiasis, nodule liver suggestive of cirrhosis, diverticulosis, umbilical hernia, right small hydrocele, bilateral small fat containing inguinal hernias versus fat related to body habitus. GI consulted. [facility] Past Medical History Medical History Atrial fibrillation paroxysmal Congestive heart failure (CHF) Diabetes Hyperlipidemia Hypertension Ischemic cardiomyopathy Surgical History Surgical History History of back surgery Family History Family History Father Chronic obstructive pulmonary disease Congestive heart failure Lung cancer Mother Congestive heart failure Lung cancer Social History Social History (Updated 03/01/24 @ 14:49 by Nidia Verduzco PA-C) Social History: Patient drinks 4 beers a day. Recently cut back since a-fib diagnosis in Oct 2023. Smoking packs per day: 1 Smoking cigarettes per day: 20.0 Years smoked: 20 Smoking pack-years: 20.00 Smoking status: Former smoker Tobacco type: cigarettes Second hand tobacco smoke exposure: No Alcohol intake: current Drinks per week: 28 Substance use: never Gender identity (if verbalized by the patient): Male Spiritual care concerns: No Meds Home Medications and Allergies Home Medications Medication Instructions Recorded Confirmed Type duloxetine 60 mg capsule,delayed 60 mg PO DAILY 10/26/19 10/21/23 History release folic acid 1 mg tablet 1 mg PO DAILY 10/26/19 10/21/23 History furosemide 40 mg tablet (Lasix) 40 mg PO DAILY 10/26/19 10/21/23 History lisinopril 20 mg tablet 20 mg PO DAILY 10/26/19 10/21/23 History magnesium oxide 400 mg PO DAILY 10/26/19 10/21/23 History potassium chloride 20 mEq 20 meq PO DAILY 10/26/19 10/21/23 History tablet,extended release rivaroxaban 20 mg tablet (Xarelto) 20 mg PO DAILY 10/26/19 10/21/23 History atorvastatin 10 mg tablet 10 mg PO DAILY 08/03/23 10/21/23 History baclofen 10 mg tablet 10 mg PO TID PRN muscle spasm 7 08/03/23 10/21/23 Rx days #21 tabs bupropion HCl 300 mg 24 hr tablet, 300 mg PO DAILY
[2024-03-01 13:11] LABS: Lactate Dehydrogenase 172 U/L (120-246)
--- NOTE | 2024-03-01 13:25 | ADMGEN ---
This patient, Stanford Perez, was admitted to [facility] Surg Room 325-02. Patient/family oriented to hospital policies and general routines including ID bracelet, bed and alarms, visiting hours, pain management, procedures, bathroom and other care routines, personal items, smoking policy, room service/diet, and visiting hours. Information on how to activate the Rapid Response Team has been discussed. Patient/Family are encouraged to report perceived risks to care and to ask questions if they do not understand what they are told or what they should do.
[2024-03-01] MEDS: IRON SUCROSE COMPLEX 500 MG in SODIUM CHLORIDE 0.9% IV 250 ML 79 MG IVPB (15:20)
[2024-03-01 16:09] LABS: Glucose Point of Care 176 mg/dl (65-105)
--- NOTE | 2024-03-01 16:31 | WPDGICN ---
Assessment and Plan Assessment and plan (1) Symptomatic anemia: Code(s): D64.9 - Anemia, unspecified Status: Acute Assessment and Plan: no overt gib, he is on xarelto will do egd and colonoscopy tomorrow to assess if gi source no dyphagia but he is not longer using ppi, ? EoE (had food bolus last year)- will take more esophageal bx (2) Dizziness: Code(s): R42 - Dizziness and giddiness Status: Acute Assessment and Plan: from anemia (3) Chronic anticoagulation: Code(s): Z79.01 - detention (current) use of anticoagulants Status: Acute Assessment and Plan: xarelto on hold (4) Paroxysmal atrial fibrillation: Code(s): I48.0 - Paroxysmal atrial fibrillation Status: Acute (5) Abnormal CT scan, liver: Code(s): R93.2 - Abnormal findings on diagnostic imaging of liver and biliary tract Status: Acute Assessment and Plan: ? cirrhosis will get hepatitis study he normally drinks alcohol (6) Ischemic cardiomyopathy: Code(s): I25.5 - Ischemic cardiomyopathy Status: Acute (7) Hypertension: Code(s): I10 - Essential (primary) hypertension Status: Acute GI Consult Note Consult date/time: 03/01/24 16:31 Reason for consult: symptomatic anemia HPI: Stanford Perez is a 68 year old male with past medical history of AFib on xarelto, ischemic cardiomyopathy, hypertension who has been feeling quite tired recently and finally had blood work, found to have severe anemia and advised to come to ER. His hemoglobin and hematocrit of 6.7/24.7, he says that has been experiencing increased dizziness and lightheadedness, in fact he has seen cardiology and ENT because of those symptoms. He denies rectal bleeding, melena, hematuria,? or hematemesis.?Last colonoscopy about 6-7 years ago, had urgent EGD 10/2023 because food bolus, biopsy showed high eosinophils in esophagus, he took pantoprazole for few months and denies any more similar problem. Other labs showed low MCV at 70.8, iron 27, TIBC 536,% saturation 5, transferrin 415, ferritin 7.85, B12 260, folate greater than 20.? BNP? slightly elevated at 375.? TSH 2.2.? CXR clear lungs. CT abdomen pelvis reviewed cholelithiasis, nodule liver suggestive of cirrhosis, diverticulosis, umbilical hernia, right small hydrocele, bilateral small fat containing inguinal hernias versus fat related to body habitus. No known history of liver disease. Review of Systems Constitutional: Constitutional: Reports fatigue and Reports weakness Eyes: Eyes: Denies blurry vision ENT: Reports Normal hearing present Cardiovascular: Cardiovascular: Reports lightheadedness Respiratory: Respiratory: Denies cough Gastrointestinal: Gastrointestinal: Denies abdominal pain Genitourinary: Genitourinary: Denies dysuria Musculoskeletal: Musculoskeletal: Denies neck pain Integumentary/Breasts: Skin/Breast: Denies rash Neurologic: Denies Abnormal speech present Psychiatric: Psychiatric: Denies behavioral changes [facility] Past Medical History Medical History (Updated 03/01/24 @ 16:46 by Aguilar Fowler MD) Abnormal CT scan, liver Atrial fibrillation paroxysmal Congestive heart failure (CHF) Diabetes Hyperlipidemia Hypertension Ischemic cardiomyopathy Surgical History Surgical History History of back surgery Family History Family History Father Chronic obstructive pulmonary disease Congestive heart failure Lung cancer Mother Congestive heart failure Lung cancer Social History Social History (Updated 03/01/24 @ 14:49 by Nidia Verduzco PA-C) Social History: Patient drinks 4 beers a day. Recently cut back since a-fib diagnosis in Oct 2023. Smoking packs per day: 1 Smoking cigarettes per day: 20.0 Years smoked: 20 Smoking pack-years: 20.00 Smoking status
[2024-03-01] MEDS: BISACODYL 5 MG TABLET EC 20 MG PO (18:07)
[2024-03-01] MEDS: polyethylene glycoL 3350 238 GM BOTTLE PO (18:07)
--- NOTE | 2024-03-01 19:52 | PC.NURSE ---
Blood product found still transfusing after shift change. Noted at 1945 235 mL of PRBC transfused. Approximately 115 mL left to be transfused. 4 Hours and 18 minutes noted when blood product found to be still transfusing. Pump rate at 120 mL/hour noted. This RN spoke with Dr. Leonard regarding blood product. Repeat H&H one hour after transfusion.
[2024-03-01 20:00] LABS: Glucose Point of Care 113 mg/dl (65-105)
[2024-03-01 20:54] LABS: Hematocrit 29.4 % (42.0-52.0); Hemoglobin 8.1 g/dL (14.0-18.0)
[2024-03-02] VITALS (12 sets, daily range): BP systolic 121–167; BP diastolic 69–88; PULSE 73–95; RESP 18–22; TEMP 36.5–36.9; O2SAT 96–98
[2024-03-02] MEDS: MAGNESIUM CITRATE 300 ML BTL PO (01:30)
[2024-03-02 06:59] LABS: Hematocrit 29.4 % (42.0-52.0); Hemoglobin 8.3 g/dL (14.0-18.0); Mean Corpuscular HGB Conc 28.2 g/dl (32-36); Mean Corpuscular Hemoglobin 20.9 pg (26-34); Mean Corpuscular Volume 73.9 fl (80-100); Mean Platelet Volume 10.4 fl (7.4-10.4); Platelet Count Result 335 k/mm3 (150-375); Red Blood Count 3.98 M/mm3 (4.6-6.20); Red Cell Distribution Width 19.4 % (11.5-14.5); White Blood Count 11.3 K/mm3 (4.5-10.0)
[2024-03-02 07:07] LABS: Alanine Aminotransferase 17 U/L (6-50); Albumin Level 4.1 g/dL (3.5-5.1); Alkaline Phosphatase 72 U/L (38-126); Anion Gap 10 mmol/L (4-12); Aspartate Amino Transferase 26 U/L (17-59); Bilirubin,Total 1.4 mg/dL (0.2-1.3); Blood Urea Nitrogen 10 mg/dL (9-20); Calcium 9.1 mg/dL (8.4-10.2); Carbon Dioxide 24 mmol/L (22-30); Chloride 106 mmol/L (98-107); Estimated CRCL calculation 87 ml/min; Estimated Glomerular Filt Rate > 60; Glucose 129 mg/dL (65-110); Magnesium 2.7 mg/dL (1.6-2.3); Potassium 3.7 mmol/L (3.4-5.0); Sodium 140 mmol/L (137-145)
[2024-03-02 08:00] LABS: Glucose Point of Care 125 mg/dl (65-105)
[2024-03-02 08:05] LABS: Hepatitis B Surface Antigen Negative (Negative)
[2024-03-02 08:10] LABS: HAV RESULT Negative (Negative); Hepatitis B Core IgM Result Negative (Negative)
[2024-03-02 08:22] LABS: Hepatitis C Virus Antibody Negative (Negative)
[2024-03-02] MEDS: FERROUS SULFATE 325 MG TABLET DR PO ×2 (09:01→17:52)
[2024-03-02] MEDS: PANTOPRAZOLE SODIUM IV 40 MG VIAL IV PUSH (09:01)
[2024-03-02] MEDS: CYANOCOBALAMIN 1,000 MCG TABLET 1000 MCG PO (09:01)
[2024-03-02] MEDS: IRON SUCROSE COMPLEX 500 MG in SODIUM CHLORIDE 0.9% IV 250 ML 79 MG IVPB (09:01)
[2024-03-02 09:04] LABS: Hematocrit 28.3 % (42.0-52.0); Hemoglobin 8.1 g/dL (14.0-18.0)
[2024-03-02 11:41] LABS: Glucose Point of Care 144 mg/dl (65-105)
--- NOTE | 2024-03-02 13:14 | PDONCCN ---
HPI - Date of Consult Date/Time: 03/02/24 16:54 <Ced Reyes - 03/02/24 16:55> 03/02/24 13:14 <Trisha Srivastava - 03/02/24 13:18> Requesting Physician: Renato Church MD <Ced Reyes - 03/02/24 16:55> Renato Church MD <AtifTrisha 03/02/24 13:18> Primary Care Provider: Demetrius Hairston, <Ced Reyes - 03/02/24 16:55> Demetrius Hairston, <AtifTrisha 03/02/24 13:18> - Consult Narrative Reason for consult: Anemia <Trisha Srivastava 03/02/24 13:18> Narrative: Stanford Perez is a 68 year old male <Ced Reyes - 03/02/24 16:55> Stanford Perez is a 68 year old male with a past medical history of Afib, HTN, HLD, cardiomyopathy who was admitted for a low H/H after being seen by his PCP. He reports being on AC for his history of Afib which has been controlled. He denies any bleeding in his stool or urine. Colonoscopy is supposed to be performed today, but past scopes have been normal. He reports a regular diet. Denies any stomach surgeries. Denies any kidney or GI history. He reports fatigue, weight loss, shortness of breath and dizziniess prior to admission. Labs today are notable for WBC 11.3, Hgb 8.3, Hct 29, Plt 335,000, Iron 27, % sat 5 Ferritin 7, B12 260. <Trisha Srivastava 03/02/24 13:42> Review of Systems - Review of Systems All systems reviewed & are unremarkable except as noted in HPI and bel <AtifTrisha 03/02/24 13:18> - Neurologic Reports hearing normal, Reports weakness, Denies abnormal speech, Denies behavioral changes <Trisha Srivastava 03/02/24 13:18> [facility] Medical History: Medical History (Last Reviewed 03/01/24 @ 19:09 by Yolie Giraldo PA-C) Abnormal CT scan, liver Atrial fibrillation paroxysmal Congestive heart failure (CHF) Diabetes Hyperlipidemia Hypertension Ischemic cardiomyopathy <Ced ReyesLonnie - 03/02/24 16:55> Medical History (Last Reviewed 03/01/24 @ 19:09 by Yolie Giraldo PA-C) Abnormal CT scan, liver Atrial fibrillation paroxysmal Congestive heart failure (CHF) Diabetes Hyperlipidemia Hypertension Ischemic cardiomyopathy <Trisha Srivastava - 03/02/24 13:18> Surgical History: Surgical History (Last Reviewed 03/01/24 @ 19:09 by Yolie Giraldo PA-C) History of back surgery <AmyCedluisa Serrano - 03/02/24 16:55> Surgical History (Last Reviewed 03/01/24 @ 19:09 by Yolie Giraldo PA-C) History of back surgery <Trisha Srivastava - 03/02/24 13:18> Family History: Family History (Last Reviewed 03/01/24 @ 19:09 by Yolie Giraldo PA-C) Father Chronic obstructive pulmonary disease Congestive heart failure Lung cancer Mother Congestive heart failure Lung cancer <AmyCed Zach - 03/02/24 16:55> Family History (Last Reviewed 03/01/24 @ 19:09 by Yolie Giraldo PA-C) Father Chronic obstructive pulmonary disease Congestive heart failure Lung cancer Mother Congestive heart failure Lung cancer <Trisha Srivastava - 03/02/24 13:18> - Social History Social History: Social History (Last Reviewed 03/01/24 @ 19:09 by Yolie Giraldo PA-C) Gender Identity: Gender identity (if verbalized by the patient): Male Alcohol Use: Alcohol intake: current Drinks per week: 28 Substance Use: Substance use: never Others: Spiritual care concerns: No Smoking Status: Smoking status: Former smoker Tobacco type: cigarettes Second hand tobacco smoke exposure: No Approximate Smoking End Date: 1993 Smoking Pack-years: Smoking packs per day: 1 Smoking cigarettes per day: 20.0 Years smoked: 20 Smoking pack-years: 20.00 Social Determinants of Health: Do You Feel Safe in your Home?: Yes Has the Lack of Transportation Kept You From Medical Appointments o
[2024-03-02 13:27] LABS: Glucose Point of Care 137 mg/dl (65-105)
--- NOTE | 2024-03-02 13:30 | WPDANESEPPF ---
Anes - Initial Pre Proc Eval Procedure: Operation Date: 03/02/24 15:00 Proposed Procedures p Esophagogastroduodenoscopy & Colonoscopy - Aguilar Fowler MD Date/Time: 03/02/24 13:30 Surgeon: Renato Church MD Pre Op Diagnosis: Symptomatic Anemia/MCCANN/Dizziness Patient Data Age: 68 Gender: M Height: 1.83 m Weight: 107.2 kg Last Vital Signs Temp 98.4 F 03/02/24 06:00 Pulse 86 03/02/24 06:00 Resp 20 03/02/24 06:00 BP 167/88 H 03/02/24 06:00 Pulse Ox 96 03/02/24 06:00 O2 Del Method Room Air 03/02/24 09:01 Allergies Allergy/AdvReac Type Severity Reaction Status Date / Time Penicillins Allergy Intermediate Anaphylaxis Verified 03/02/24 13:22 Eiwocyj-GJO-GsX Reductase AdvReac Mild Confusion Verified 03/02/24 13:22 Inhibitor [Dfaewwm-Cve-Gux Reductase Inhibitor] Home Medications Medication Instructions Recorded Confirmed Type duloxetine 60 mg capsule,delayed 60 mg PO DAILY 10/26/19 03/01/24 History release folic acid 1 mg tablet 1 mg PO DAILY 10/26/19 03/01/24 History furosemide 40 mg tablet (Lasix) 20 mg PO DAILY 10/26/19 03/01/24 History magnesium oxide 400 mg PO DAILY 10/26/19 03/01/24 History potassium chloride 20 mEq 20 meq PO HS 10/26/19 03/01/24 History tablet,extended release rivaroxaban 20 mg tablet (Xarelto) 20 mg PO HS 10/26/19 03/02/24 History atorvastatin 10 mg tablet 10 mg PO DAILY 08/03/23 03/01/24 History bupropion HCl 300 mg 24 hr tablet, 300 mg PO HS 08/03/23 03/01/24 History extended release empagliflozin 10 mg tablet 10 mg PO DAILY 08/03/23 03/01/24 History (Jardiance) metoprolol tartrate 50 mg tablet 25 mg PO BID 08/03/23 03/01/24 History Laboratory Tests 03/01/24 03/01/24 03/01/24 09:43 11:09 16:02 WBC RBC Hgb Hct MCV MCH MCHC RDW Plt Count MPV Sodium Potassium Chloride Carbon Dioxide Anion Gap BUN Creatinine Estim Creat Clear Calc Estimated GFR Glucose POC Capillary Glucose 176 H mg/dl (65-105) Hemoglobin A1c Calcium Magnesium Total Bilirubin AST ALT Alkaline Phosphatase Total Protein Albumin Hepatitis A IgM Ab Hep Bs Antigen Hep B Core IgM Ab Hepatitis C Ab Screen Blood Type O Positive Antibody Screen Negative CANDIDO, IgG Interpret 1+ CANDIDO, Poly Interpret 1+ CANDIDO, Complement Interp Negative Crossmatch See Detail 03/01/24 03/01/24 03/02/24 19:56 20:47 06:32 WBC 11.3 H K/mm3 (4.5-10.0) RBC 3.98 L M/mm3 (4.6-6.20) Hgb 8.1 L g/dL 8.3 L g/dL (14.0-18.0) (14.0-18.0) Hct 29.4 L % 29.4 L % (42.0-52.0) (42.0-52.0) MCV 73.9 L fl (80-100) MCH 20.9 L D pg (26-34) MCHC 28.2 L g/dl (32-36) RDW 19.4 H % (11.5-14.5) Plt Count 335 k/mm3 (150-375) MPV 10.4 fl (7.4-10.4) Sodium 140 mmol/L (137-145) Potassium 3.7 mmol/L (3.4-5.0) Chloride 106 mmol/L (98-107) Carbon Dioxide 24 mmol/L (22-30) Anion Gap 10 mmol/L (4-12) BUN 10 mg/dL (9-20) Creatinine 0.90 mg/dL (0.7-1.3) Estim Creat Clear Calc 87 ml/min Estimated GFR > 60 (59 - ) Glucose 129 H mg/dL (65-110) POC Capillary Glucose 113 H mg/dl (65-105) Hemoglobin A1c 6.0 H % (<5.7) Calcium 9.1 mg/dL (8.4-10.2) Magnesium 2.7 H mg/dL (1.6-2.3) Total Bilirubin 1.4 H mg/dL (0.2-1.3) AST 26 U/L
--- NOTE | 2024-03-02 14:11 | PM.IMPN ---
Progress Note: A&P Assessment and Plan (1) Symptomatic anemia: Code(s): D64.9 - Anemia, unspecified Status: Acute Assessment and Plan: Hemoglobin and hematocrit of 6.7/24.7, low MCV at 70.8, iron 27, TIBC 536,% saturation 5, transferrin 415, ferritin 7.85, B12 260, folate greater than 20. CT did not show an active bleed but did show possible cirrhosis. This could explain patients anemia. States increased constipation over the past month but not change in stool caliber or form. Last colonoscopy approx. 8 years ago. 2 units of PRBCs ordered on 03/01 Iron infusion x3 bags over 3 days. Xarelto on hold GI consulted. 03/02 H&H 8.3/.4 Plan on EGD and Colonoscopy today. (2) Abnormal CT scan, liver: Code(s): R93.2 - Abnormal findings on diagnostic imaging of liver and biliary tract Status: Acute Assessment and Plan: CT abdomen pelvis showing possible cirrhosis. GI consulted. Patient having any active symptoms. Total bilirubin elevated at 1.4. (3) Dizziness: Code(s): R42 - Dizziness and giddiness Status: Acute Assessment and Plan: Likely due to anemia. 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 On Xarelto due for paroxysmal AFib. (5) Congestive heart failure (CHF): Code(s): I50.9 - Heart failure, unspecified Status: Acute Assessment and Plan: Continue home medications Jardiance, furosemide, and metoprolol. CHF stable. (6) Paroxysmal atrial fibrillation: Code(s): I48.0 - Paroxysmal atrial fibrillation Status: Acute Assessment and Plan: Continue metoprolol. Hold Xarelto. (7) Hypertension: Code(s): I10 - Essential (primary) hypertension Status: Acute Assessment and Plan: Continue lisinopril. (8) Diabetes: Code(s): E11.9 - Type 2 diabetes mellitus without complications Status: Acute Assessment and Plan: Insulin Lispro sliding scale, Accu-checks qAc and HS and Hold oral hypoglycemics Initiate hypoglycemic precautions Obtain a HgbA1c Subjective Date/time seen: 03/02/24 14:11 Interval history: Patient doing well today. He denies nausea vomiting, lightheadedness, dizziness, shortness of breath, chest pain or or dysuria. Plan for colonoscopy an EGD today. H&H remained stable. Exam Narrative: GENERAL: Comfortable, no acute distress HENMT: moist mucous membranes EYES: EOM intact b/l NECK: no lymphadenopathy RESPIRATORY: clear to auscultation, no increased respiratory effort CARDIO: Regular rate and rhythm GI: soft, nontender, bowel sounds present SKIN/EXTREMITIES: no rashes, no edema, no redness or tenderness NEURO: PROM intact, answers questions appropriately, A&O x4 Objective Data Vital Signs Vital Signs: Vital Signs - 24 hr 03/01/24 14:29 03/01/24 15:06 03/01/24 15:41 Temperature 97.6 F 97.6 F 97.1 F L Pulse Rate 66 66 98 Respiratory Rate 16 16 18 Blood Pressure 134/80 137/80 126/83 Pulse Oximetry 100 100 99 Oxygen Delivery 03/01/24 16:02 03/01/24 16:00 03/01/24 17:02 Temperature 97.6 F 97.6 F Pulse Rate 78 78 76 Respiratory Rate 18 18 Blood Pressure 135/83 144/88 H Pulse Oximetry 99 99 Oxygen Delivery 03/01/24 18:02 03/01/24 22:00 03/01/24 20:00 Temperature 97.6 F 98.6 F Pulse Rate 71 70 72 Respiratory Rate 18 20 Blood Pressure 132/65 160/95 H Pulse Oximetry 98 98 Oxygen Delivery 03/02/24 00:00 03/02/24 04:00 03/02/24 06:00 Temperature 98.4 F Pulse Rate 80 85 86 Respiratory Rate 20 Blood Pressure 167/88 H Pulse Oximetry 96 Oxygen Delivery 03/02/24 09:01 03/02/24 13:30 03/01/24 15:50 Temperature 98.3 F 97.1 F L Pulse Rate 85 98 Respiratory Rate 18 18 Blood Pressure 16
[2024-03-02] MEDS: LACTATED RINGERS 1,000 ML 150 ML IV CONT (14:19)
--- NOTE | 2024-03-02 14:21 | SUR.OPER ---
EGD START 1356, END 1404 COLONOSCOPY START 1410, END 1418
[2024-03-02 16:23] LABS: Glucose Point of Care 146 mg/dl (65-105)
[2024-03-02 21:45] LABS: Glucose Point of Care 238 mg/dl (65-105)
[2024-03-02] MEDS: INSULIN ASPART (*BKC) 100 UNITS/ML SUB-Q (21:49)
[2024-03-03 06:00] VITALS: BP 170/87; PULSE 86; RESP 18; TEMP 36.4; O2SAT 98
[2024-03-03 06:35] LABS: Hematocrit 28.2 % (42.0-52.0); Hemoglobin 7.7 g/dL (14.0-18.0); Mean Corpuscular HGB Conc 27.3 g/dl (32-36); Mean Corpuscular Hemoglobin 20.9 pg (26-34); Mean Corpuscular Volume 76.6 fl (80-100); Mean Platelet Volume 10.5 fl (7.4-10.4); Platelet Count Result 307 k/mm3 (150-375); Red Blood Count 3.68 M/mm3 (4.6-6.20); Red Cell Distribution Width 20.3 % (11.5-14.5); White Blood Count 10.2 K/mm3 (4.5-10.0)
[2024-03-03 06:44] LABS: Alanine Aminotransferase 14 U/L (6-50); Albumin Level 3.6 g/dL (3.5-5.1); Alkaline Phosphatase 72 U/L (38-126); Anion Gap 5 mmol/L (4-12); Aspartate Amino Transferase 22 U/L (17-59); Bilirubin,Total 0.8 mg/dL (0.2-1.3); Blood Urea Nitrogen 8 mg/dL (9-20); Calcium 8.7 mg/dL (8.4-10.2); Carbon Dioxide 25 mmol/L (22-30); Chloride 108 mmol/L (98-107); Estimated CRCL calculation 97 ml/min; Estimated Glomerular Filt Rate > 60; Glucose 121 mg/dL (65-110); Potassium 3.4 mmol/L (3.4-5.0); Sodium 138 mmol/L (137-145)
--- NOTE | 2024-03-03 07:24 | WPDANESPN ---
Anes - Prog Note Post-Op Date/Time: 03/03/24 07:24 Cardiovascular status: normal Respiratory status: normal Airway patency: baseline Mental status: baseline Post-Op hydration status: normal Vital Signs: Last Vital Signs Temp 97.6 F 03/03/24 06:00 Pulse 86 03/03/24 06:00 Resp 18 03/03/24 06:00 BP 170/87 H 03/03/24 06:00 Pulse Ox 98 03/03/24 06:00 O2 Del Method Room Air 03/02/24 14:43 Pain Score (VAS): 0/10 I/O: Intake & Output 03/02/24 03/02/24 03/03/24 15:59 23:59 07:59 Intake Total 575 462 400 Balance 575 462 400 Laboratory Tests 03/03/24 05:52 03/03/24 05:52 03/02/24 03/02/24 03/02/24 06:32 07:48 08:50 WBC RBC Hgb 8.1 L Hct 28.3 L MCV MCH MCHC RDW Plt Count MPV Sodium Potassium Chloride Carbon Dioxide Anion Gap BUN Creatinine Estim Creat Clear Calc Estimated GFR Glucose POC Capillary Glucose 125 H Hemoglobin A1c 6.0 H Calcium Total Bilirubin AST ALT Alkaline Phosphatase Total Protein Albumin Hepatitis A IgM Ab Negative Hep Bs Antigen Negative Hep B Core IgM Ab Negative Hepatitis C Ab Screen Negative 03/02/24 03/02/24 03/02/24 11:34 13:23 16:20 WBC RBC Hgb Hct MCV MCH MCHC RDW Plt Count MPV Sodium Potassium Chloride Carbon Dioxide Anion Gap BUN Creatinine Estim Creat Clear Calc Estimated GFR Glucose POC Capillary Glucose 144 H 137 H 146 H Hemoglobin A1c Calcium Total Bilirubin AST ALT Alkaline Phosphatase Total Protein Albumin Hepatitis A IgM Ab Hep Bs Antigen Hep B Core IgM Ab Hepatitis C Ab Screen 03/02/24 03/03/24 20:25 05:52 WBC 10.2 H RBC 3.68 L Hgb 7.7 L Hct 28.2 L MCV 76.6 L MCH 20.9 L MCHC 27.3 L RDW 20.3 H Plt Count 307 MPV 10.5 H Sodium 138 Potassium 3.4 Chloride 108 H Carbon Dioxide 25 Anion Gap 5 BUN 8 L Creatinine 0.80 Estim Creat Clear Calc 97 Estimated GFR > 60 Glucose 121 H POC Capillary Glucose 238 H Hemoglobin A1c Calcium 8.7 Total Bilirubin 0.8 AST 22 ALT 14 Alkaline Phosphatase 72 Total Protein 7.0 Albumin 3.6 Hepatitis A IgM Ab Hep Bs Antigen Hep B Core IgM Ab Hepatitis C Ab Screen Post-procedural complaints: none Patient Feedback: Patient satisfied with anesthetic care.
[2024-03-03 08:00] VITALS: PULSE 97
[2024-03-03 08:02] LABS: Glucose Point of Care 130 mg/dl (65-105)
[2024-03-03] MEDS: FERROUS SULFATE 325 MG TABLET DR PO (09:08)
[2024-03-03] MEDS: CYANOCOBALAMIN 1,000 MCG TABLET 1000 MCG PO (09:08)
[2024-03-03] MEDS: PANTOPRAZOLE 40 MG TABLET PO (09:08)
[2024-03-03] MEDS: IRON SUCROSE COMPLEX 500 MG in SODIUM CHLORIDE 0.9% IV 250 ML 79 MG IVPB (09:08)
[2024-03-03] MEDS: ACETAMINOPHEN 325 MG TABLET 650 MG PO (11:49)
[2024-03-03 11:53] LABS: Glucose Point of Care 153 mg/dl (65-105)
[2024-03-03 12:00] VITALS: PULSE 99
--- NOTE | 2024-03-03 13:47 | PM.DS ---
DS: Admitting Diagnosis Discharge Date 03/03/2024 Admitting Diagnosis Low HGB/r/O GI bleed/anemia DS: Discharge Diagnosis Discharge Diagnosis (1) Symptomatic anemia: Code(s): D64.9 - Anemia, unspecified Status: Acute Assessment and Plan: Hemoglobin and hematocrit of 6.7/24.7, low MCV at 70.8, iron 27, TIBC 536,% saturation 5, transferrin 415, ferritin 7.85, B12 260, folate greater than 20. CT did not show an active bleed but did show possible cirrhosis. This could explain patients anemia. States increased constipation over the past month but not change in stool caliber or form. Last colonoscopy approx. 8 years ago. 2 units of PRBCs ordered on 03/01 Iron infusion x3 bags over 3 days. Xarelto on hold GI consulted. 03/02 H&H 8.3/29.4 Plan on EGD and Colonoscopy today. (2) Abnormal CT scan, liver: Code(s): R93.2 - Abnormal findings on diagnostic imaging of liver and biliary tract Status: Acute Assessment and Plan: CT abdomen pelvis showing possible cirrhosis. GI consulted. Patient having any active symptoms. Total bilirubin elevated at 1.4. (3) Dizziness: Code(s): R42 - Dizziness and giddiness Status: Acute Assessment and Plan: Likely due to anemia. 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 On Xarelto due for paroxysmal AFib. (5) Congestive heart failure (CHF): Code(s): I50.9 - Heart failure, unspecified Status: Acute Assessment and Plan: Continue home medications Jardiance, furosemide, and metoprolol. CHF stable. (6) Paroxysmal atrial fibrillation: Code(s): I48.0 - Paroxysmal atrial fibrillation Status: Acute Assessment and Plan: Continue metoprolol. Hold Xarelto. (7) Hypertension: Code(s): I10 - Essential (primary) hypertension Status: Acute Assessment and Plan: Continue lisinopril. (8) Diabetes: Code(s): E11.9 - Type 2 diabetes mellitus without complications Status: Acute Assessment and Plan: Insulin Lispro sliding scale, Accu-checks qAc and HS and Hold oral hypoglycemics Initiate hypoglycemic precautions Obtain a HgbA1c DS: Summary Hospital Course Reason for hospitalization: Low HGB/r/O GI bleed/anemia Hospital Course: Chief Complaint: Abnormal labs. Narrative: This is a 68-year-old male with a past medical history of AFib, ischemic cardiomyopathy, alcohol abuse, hypertension, hyperlipidemia presents to the ED on 03/01/2024 with chief complaint of abnormal labs.? Patient is unable to tell me much about his medical history and states I no idea what I take medications for . Patient had been getting routine blood work on 02/27/2024 an outpatient lab and was called this morning to come into the ED. Patient was found to have a hemoglobin and hematocrit of 6.7/24.7 peer patient has recently been experiencing increased dizziness with changes of position, lightheadedness and shortness of breath with exertion over the past couple months.? Patient sees Dr. Plunkett as an outpatient and their office were the ones to call about his abnormal labs. He has not gotten any follow up labs since last admission.? Patient has no history of anemia and has never required a blood transfusion in the past.? He is on Xarelto for his paroxysmal AFib.? This was been put on hold.? He denies rectal bleeding, melena, hematuria,? or hematemesis.? Patient believes his last colonoscopy was at the age of 62.? Patient drinks approximately 4 beers a day.? He states he has cut back since diagnosis of A-Fib in 2022.? He denies history of withdrawal and tremors. Vital signs:? BP 130/72, pulse 65, RR 14, temp 97.9?, O2 sat 100 RA In the ED: patient was found with a hemoglobin and he
--- NOTE | 2024-03-03 14:36 | WPDGIPROGNO ---
Progress Note: A&P Assessment and Plan (1) Gastritis: Code(s): K29.70 - Gastritis, unspecified, without bleeding Status: Acute Assessment and Plan: noted petechiae in stomach- treated with APC no other findings in scope otherwise holding blood thinner for now (2) Abnormal CT scan, liver: Code(s): R93.2 - Abnormal findings on diagnostic imaging of liver and biliary tract Status: Acute Assessment and Plan: discussed with patient finding of possible cirrhosis, he normally drinks beer most days- understood that needs to quit drinking now also risk factor for fatty liver hepatitis panel negative he can follow-up in our office or hepatology (3) Symptomatic anemia: Code(s): D64.9 - Anemia, unspecified Status: Acute Assessment and Plan: better after transfusion (4) Chronic anticoagulation: Code(s): Z79.01 - skilled nursing (current) use of anticoagulants Status: Acute (5) Congestive heart failure (CHF): Code(s): I50.9 - Heart failure, unspecified Status: Acute Subjective Date/time seen: 03/03/24 14:36 Interval history: egd showed petechiae in stomach- no bleeding but treated with APC, colonoscopy no major findings. he is going home today Review of Systems Review of Systems: All systems reviewed & are unremarkable except as noted in HPI and below Exam Const: General: comfortable and no acute distress HENMT: Face/Nose/Sinus: Normal nares present Eyes: General: appearance normal, both eyes and all related structures Neck: Neck: supple Resp: Auscultation: clear to auscultation bilaterally Cardio: Rate: regular rate Rhythm: regular rhythm GI: Inspection: non-distended GI Palp: Yes Soft to palpation and No Tenderness to palpation present (GI) Auscultation: normal bowel sounds Skin: General skin exam: no rashes or lesions noted Neuro: Speech: normal speech Motor exam (neuro): 5/5 motor strength present throughout Extrem: General: normal to inspection Psych: Mental Status: mental status grossly normal Objective Data Vital Signs Vital Signs: Vital Signs - 24 hr 03/02/24 14:43 03/02/24 16:00 03/02/24 22:00 Temperature 97.7 F Pulse Rate 81 88 95 Respiratory Rate 18 18 Blood Pressure 139/80 146/86 H Pulse Oximetry 97 98 Oxygen Delivery Room Air 03/03/24 06:00 03/03/24 09:02 03/03/24 08:00 Temperature 97.6 F Pulse Rate 86 97 Respiratory Rate 18 Blood Pressure 170/87 H Pulse Oximetry 98 Oxygen Delivery Room Air 03/03/24 12:00 Temperature Pulse Rate 99 Respiratory Rate Blood Pressure Pulse Oximetry Oxygen Delivery Intake/Output Intake/Output: Intake & Output 02/29/24 03/01/24 03/02/24 03/03/24 23:59 23:59 23:59 23:59 Intake Total 3358 1828 640 Balance 3358 1828 640 Meds/Results Medications: Active Medications Generic Name Dose Route Start Last Admin Trade Name Freq PRN Reason Stop Dose Admin Acetaminophen 650 mg 03/03/24 11:39 03/03/24 11:49 Acetaminophen 325 Mg Tablet PO 650 mg Q6H PRN Administration Mild Pain (1-3) or Fever Cyanocobalamin 1,000 mcg 03/02/24 09:00 03/03/24 09:08 Cyanocobalamin 1,000 Mcg Tablet PO 1,000 mcg QAM REGINA Administration Dextrose 12.5 gm 03/01/24 13:14 Dextrose 50% 25 Gm/50 Ml Syringe IV PUSH PRN PRN Hypoglycemia Protocol Ferrous Sulfate 325 mg 03/02/24 09:00 03/03/24 09:08 Ferrous Sulfate [address] PO 325 mg BID REGINA Administration Glucagon 1 mg 03/01/24 13:14 Glucagon For Inj 1 Mg Vial IM PRN PRN Hypoglycemia Protocol Glucose 15 gm 03/01/24 13:14 Glucose Oral Gel 15 Gm Of Glucse In 37.5 Gm Tube PO PRN PRN Hypoglycemia Protocol Dextrose 1,000 mls @ 100 mls/hr 03/01/24 13:14 Dextrose 5% 1,000 Ml IVPB PRN PRN Hypoglycemia Protocol Insulin Aspart 2 - 5 units 03/01/24 17:00 03/03/24 11:56 Insulin Asp
== END 2024-03-03 15:00 | disposition home or self-care (01) ==
LOC: ANHED 11:39 → ANH3MEDSUR 17:10
PROVIDERS: General Practice; Internal Medicine Critical Care Medicine; Internal Medicine Gastroenterology; Admitting Provider Internal Medicine; Emergency Provider Physician Assistant; PCP Internal Medicine; Visit Provider Hospitalist
PROC: 0DJ08ZZ Inspection of Upper Intestinal Tract, Via Natural or Artificial Opening Endoscopic (ICD-10-PCS; CPT 43235; principal; 2024-03-02 15:00)
DX: D64.9 Anemia, unspecified (principal); K29.70 Gastritis, unspecified, without bleeding; K57.30 Diverticulosis of large intestine without perforation or abscess without bleeding; K64.8 Other hemorrhoids; K42.9 Umbilical hernia without obstruction or gangrene; N43.3 Hydrocele, unspecified; K80.20 Calculus of gallbladder without cholecystitis without obstruction; I48.0 Paroxysmal atrial fibrillation; I11.0 Hypertensive heart disease with heart failure; I25.5 Ischemic cardiomyopathy; R93.2 Abnormal findings on diagnostic imaging of liver and biliary tract; I50.9 Heart failure, unspecified; E11.9 Type 2 diabetes mellitus without complications; R94.31 Abnormal electrocardiogram [ECG] [EKG]; E78.5 Hyperlipidemia, unspecified; E66.9 Obesity, unspecified; Z68.32 Body mass index [BMI] 32.0-32.9, adult; F10.10 Alcohol abuse, uncomplicated; Z79.01 Long term (current) use of anticoagulants; Z87.891 Personal history of nicotine dependence; Z79.899 Other long term (current) drug therapy
CPT/HCPCS: 43270; 45378; 36415; 36430; 71046; 74177; 80053; 80074; 82607; 82728; 82746; 82948; 83036; 83540; 83550; 83615; 83735; 83880; 84443; 84466; 84484; 85014; 85018; 85025; 85027; 85046; 85610; 85730; 86850; 86880; 86900; 86901; 86920; 93005; 96374; 99285; A9270; C9113; G0378; J1756; J1815; J2704; J7050; J7120; P9016; Q9967

== ENCOUNTER 2025-04-14 09:18 | Outpatient (CLI) | payer MEDICARE, SELFPAY ==
--- NOTE | ~2025-04-14 | CT_ITS ---
CT Scan of the Chest without Contrast: Clinical Indication: Pulmonary nodule Technique: Contiguous sections were acquired throughout the chest without intravenous contrast. Dose reduction technique was used on this scan by utilizing automated exposure control and iterative recon struction technique. The dose-length product (DLP) was 587.34 mGy-cm. COMPARISON: 10/25/2023 Findings: There is no evidence of any significant mediastinal, hilar or axillary lymphadenopathy. The mediastin al soft tissues appear normal. Left atrial appendage occlusion device present. There is no evidence of pleural or pericardial effusion. The lungs are clear. No pulmonary nodules or infiltrates are noted. Images through the upper abdomen reveal multiple small calcified gallstones. Impression: Clear lungs. Cholelithiasis. Reviewed, dictated and finalized at [facility]. Impression: Clear lungs. Cholelithiasis.
== END 2025-04-14 09:19 | disposition home or self-care (01) ==
LOC: MICIMG 09:19
PROVIDERS: PCP Internal Medicine; Visit Provider Internal Medicine
DX: R91.1 Solitary pulmonary nodule (principal); K80.20 Calculus of gallbladder without cholecystitis without obstruction
CPT/HCPCS: 71250

== ENCOUNTER 2025-04-20 11:08 | Emergency (ER) | payer MEDICARE, SELFPAY ==
[2025-04-20 11:24] VITALS: BP 145/78; PULSE 63; RESP 16; TEMP 36.6; O2SAT 98
--- NOTE | 2025-04-20 12:04 | ED.SKABFB ---
HPI - Skin/Abscess/Foreign Bdy General Chief complaint: Skin/Abscess/Foreign Body Stated complaint: INFECTED INSECT BITES ON LEGS Time Seen by Provider: 04/20/25 11:55 Source: patient, family and RN notes reviewed Mode of arrival: ambulatory Limitations: no limitations History of Present Illness HPI narrative: 69-year-old male presents Express Care complaining of chigger and tick bites to his right lower leg. Patient said they were outside in the [facility] in [facility] approximately 1 week ago when he was bit by chiggers and multiple ticks to his right lower leg. Said they were seed ticks. Since then patient states that some of the bites have increased redness and swelling and says they are warm to touch. Patient denies any pain, fevers, body aches, chills, muscle aches, or any other symptoms. Patient has been using hydrocortisone cream and camphor for itchiness symptoms with some relief. Patient has a history of cellulitis to his right leg. She denies any other significant past medical history. Patient denies being an area with tick-borne illnesses. Related Data Home Medications ?Medication ?Instructions ?Recorded ?Confirmed ?Last Taken ?Type duloxetine 60 mg capsule,delayed 60 mg PO DAILY 10/26/19 03/01/24 03/01/24 History release folic acid 1 mg tablet 1 mg PO DAILY 10/26/19 03/01/24 03/01/24 History furosemide 40 mg tablet (Lasix) 20 mg PO DAILY 10/26/19 03/01/24 02/29/24 History magnesium oxide 400 mg PO DAILY 10/26/19 03/01/24 03/01/24 History rivaroxaban 20 mg tablet (Xarelto) 20 mg PO HS 10/26/19 03/02/24 02/29/24 History atorvastatin 10 mg tablet 10 mg PO DAILY 08/03/23 03/01/24 03/01/24 History bupropion HCl 300 mg 24 hr tablet, 300 mg PO HS 08/03/23 03/01/24 02/29/24 History extended release empagliflozin 10 mg tablet 10 mg PO DAILY 08/03/23 03/01/24 03/01/24 History (Jardiance) metoprolol tartrate 50 mg tablet 25 mg PO BID 08/03/23 03/01/24 03/01/24 History clopidogrel 75 mg tablet mg 04/20/25 Unknown History furosemide 20 mg tablet mg 04/20/25 Unknown History magnesium oxide 400 mg (241.3 mg mg 04/20/25 Unknown History magnesium) tablet metoprolol tartrate 25 mg tablet mg 04/20/25 Unknown History potassium chloride 20 mEq meq PO 04/20/25 Unknown History tablet,extended release(part/cryst) Allergies Allergy/AdvReac Type Severity Reaction Status Date / Time Penicillins Allergy Intermediate Anaphylaxis Verified 04/20/25 11:17 Lebefek-LUT-EnS Reductase AdvReac Mild Confusion Verified 04/20/25 11:17 Inhibitor (Zzvgxmt-Ips-Bsc Reductase Inhibitor) Review of Systems Review of Systems: CONSTITUTIONAL: Denies fever, chills, or sweats. EYES: Denies visual changes, redness, or discharge. ENT: Denies rhinorrhea, congestion, sore throat, or otalgia. CARDIOVASCULAR: Denies chest pain, palpitations, or edema. RESPIRATORY: Denies cough or dyspnea. GASTROINTESTINAL: Denies abdominal pain, nausea, vomiting, or diarrhea. GENITOURINARY: Denies dysuria or hematuria. SKIN: Positive for insect bites and itching. MUSCULOSKELETAL: Denies back pain, joint pain, or myalgia. NEUROLOGIC: Denies headache, numbness, or weakness. PSYCHIATRIC: Denies anxiety or depression. All other systems reviewed are negative, except as documented in HPI. [facility] Past Medical History Medical History Gastritis Abnormal CT scan, liver Diabetes Congestive heart failure (CHF) Ischemic cardiomyopathy Hyperlipidemia Hypertension Atrial fibrillation paroxysmal Surgical History Surgical History History of back surgery Family History Family History Father Chronic obstructive pulmonary disease Congestive heart failure Lung cancer Mother Congestive heart failure Lung cancer Social History Social History Social History: Patient drinks 4 beers a day. Recently cut back since a-fib diagnosis in Oct 2023. Smoking packs per day: 1 Smoking cigarettes per day: 20.0 Years smoked: 20 Smoking pack-years: 20.00 Smoking status: Former smoker Tobacco type: cigarettes Second hand tobacco smoke exposure: No Alcohol intake: current Drinks per week: 28 Substance use: never Do You Feel Safe in your Home?: Yes Lack of Transportation: No Lack of Food: Never True Current Housing: I Have Housing Concerned About Future Housing: No Difficulty Paying Gas/Electric Bills: No Difficulty Paying for Meds: No Currently Unemployed: No Education: Decline to Answer Difficulty w/ Childcare or Family Care: No Gender identity (if verbalized by the patient): Male Spiritual care concerns: No Comments At the time of my signature, I reviewed and agree with the nursing past medical, surgical, social, and family history. There is no relevant family history pertinent to the patient complaint. Exam Narrative: GENERAL: This is a well-nourished, well-developed adult, in no apparent distress. They are non ill-appearing, nontoxic appearing. HEAD: normocephalic, atraumatic. EYES: Sclera clear/white. Conjunctiva normal. Vision is grossly intact. Extraocular movements intact EARS: External ears normal, Hearing grossly intact. NOSE: External nose normal THROAT: Mucous membranes moist, NECK: Neck supple, CARDIOVASCULAR: Regular rate and rhythm . RESPIRATORY: Respiratory rate normal, respiratory effort nonlabored, no respiratory distress SKIN: Right lower leg: Multiple small puncture wounds scattered throughout the patient's right lower leg below the knee. There is surrounding erythema and swelling. Wounds are nontender and scabbed over. No area of induration or fluctuance. They are warm to touch. No streaking or exudate. NEURO: awake, alert, and oriented to person, place and time. There were no obvious focal neurologic abnormalities. EXTREMITIES: No joint tenderness, effusion, or edema noted. Course Course Emergency Course: Portions of this record may have been created with voice recognition software Level of Care: Express Care Visit Vital Signs Vital signs: Vital Signs Temperature 97.9 F 04/20/25 11:24 Pulse Rate 63 04/20/25 11:24 Respiratory Rate 16 04/20/25 11:24 Blood Pressure 145/78 H 04/20/25 11:24 Pulse Oximetry 98 04/20/25 11:24 Temperature 97.9 F 04/20/25 11:24 Pulse Rate 63 04/20/25 11:24 Respiratory Rate 16 04/20/25 11:24 Blood Pressure 145/78 H 04/20/25 11:24 Pulse Oximetry 98 04/20/25 11:24 Reviewed MDM - Skin/Abscess/Foreign Bdy MDM Narrative Medical decision making narrative: Appears that some of the bites appear to have developed cellulitis. Will treat with doxycycline. Patient has anaphylactic allergy to penicillins therefore cephalosporins were avoided. Discussed physical exam findings. Advised supportive measures and signs/symptoms to go to the ER. Pt is appropriate for outpt treatment and f/u. Differential Diagnosis Differential diagnosis: Likely cellulitis, insect bites and contact dermatitis Critical Care Time Critical Care Time Critical Care Time: No Discharge Plan Discharge Clinical Impression: Insect bite, Cellulitis Patient Disposition: Home Condition: Stable Instructions: Antibiotic Form, Cellulitis (ED) Additional Instructions: Take the antibiotics as directed. Please wear sunscreen while taking doxycycline if you are going to be outside. Wash the wounds daily with mild soap and water. Continue use hydrocortisone cream or camphor to help with itchiness symptoms. You May also take Zyrtec or Claritin to help with itchiness or allergy symptoms. Follow-up with PCP in 3-5 days. You develop any worsening redness, swelling, fevers, body aches, chills, muscle aches, or any other concerns please go to the ER immediately. Patient Language: Czech Prescriptions: New doxycycline monohydrate 100 mg capsule 100 mg PO BID 7 Days Qty: 14 0RF No Action furosemide [Lasix] 40 mg Tablet 20 mg PO DAILY folic acid 1 mg Tablet 1 mg PO DAILY duloxetine 60 mg Capsule,Delayed Release(Dr/Ec) 60 mg PO DAILY Xarelto 20 mg Tablet 20 mg PO HS magnesium oxide 400 mg magnesium Tablet 400 mg PO DAILY clopidogrel 75 mg tablet potassium chloride 20 mEq tablet,ER particles/crystals PO magnesium oxide 400 mg (241.3 mg magnesium) tablet furosemide 20 mg tablet metoprolol tartrate 25 mg tablet atorvastatin 10 mg tablet 10 mg PO DAILY metoprolol tartrate 50 mg tablet 25 mg PO BID bupropion HCl 300 mg tablet extended release 24 hr 300 mg PO HS Jardiance 10 mg tablet 10 mg PO DAILY cyanocobalamin (vitamin B-12) [Vitamin B-12] 1,000 mcg Tablet 1,000 mcg PO QAM Qty: 30 0RF ferrous sulfate 325 mg (65 mg iron) Tablet,Delayed Release (Dr/Ec) 325 mg PO BID Qty: 60 0RF Follow-up/Referrals: Yovanny,Demetrius Mendiola MD [Primary Care Provider] - Time of Disposition: 12:03
== END 2025-04-20 12:13 | disposition home or self-care (01) ==
PROVIDERS: PCP Internal Medicine
DX: S80.861A Insect bite (nonvenomous), right lower leg, initial encounter (principal); L03.115 Cellulitis of right lower limb; W57.XXXA Bitten or stung by nonvenomous insect and other nonvenomous arthropods, initial encounter; Z87.891 Personal history of nicotine dependence; E11.9 Type 2 diabetes mellitus without complications; Z79.84 Long term (current) use of oral hypoglycemic drugs; I11.0 Hypertensive heart disease with heart failure; I50.9 Heart failure, unspecified; I48.0 Paroxysmal atrial fibrillation; E78.5 Hyperlipidemia, unspecified; I25.5 Ischemic cardiomyopathy; Z79.01 Long term (current) use of anticoagulants
CPT/HCPCS: 99213; G0463

== ENCOUNTER 2025-07-14 10:59 | Outpatient (CLI) | payer MEDICARE, SELFPAY ==
--- NOTE | ~2025-07-14 | XR_ITS ---
XR chest 2V 07/14/2025 11:24 Indication: Dyspnea with exertion. Shortness of breath. Procedure: 2 view chest Comparison: Comparison to multiple prior studies sequentially, with oldest reviewed study dated 04/25/2021. Findings: Cardiomegaly with pulmonary vascular congestion. There is a closure device overlying the left atrium. No pleural effusion or pneumothorax. Impression: 1: Cardiomegaly with pulmonary vascular congestion. Reviewed, dictated and finalized at location O. Impression: 1: Cardiomegaly with pulmonary vascular congestion.
--- OUTSIDE RECORDS SUMMARY | 2025-07-14 09:15 | XMS_ITS | Encounter Summary ---
Author Organization [facility] Healthcare Address [address] [place] [address] Care Team Providers Care Haulpak Driver Name Role Phone Demetrius Hairston MD Primary Care Provider [phone]- [phone] Reason for Visit * Cardiology (Routine) - Closed Specialty Diagnoses / Procedures Referred By Contac t Referred To Contact Diagnoses MCCANN (dyspnea on exertion) Procedures Transthoracic Echo (TTE) Complete W Doppler/CF Demetrius Hairston MD [address] [place] [address] Phone: tel: fax: [facility] Cardiology [address] [place] [id number] Phone: tel: fax: Referral ID Status Reason Start Date Expiration Date Visits Re quested Visits Authorized [id number] Closed 07/12/2025 08/11/2026 1 1 Encounter Details Date Type Department Care Team (Latest Contact Info) Description 07/14/2025 9:15 AM CDT Ancillary Procedure [facility] Cardiology [address] [place] [phone] MCCANN (dyspnea on exertion) Social History Tobacco Use Types Packs/Day Years Used Date Smoking Tobacco: Former Cigarettes Q uit: 08/21/1982 Smokeless Tobacco: Never Alcohol Use Standard Drinks/Week Comments Yes 8 (1 standard drink = 0.6 oz pur e alcohol) AUDIT-C Answer Date Recorded Q1: How often do you have a drink containing alcohol? 4 or more times a week 01/27/2025 Q2: How many drinks containi ng alcohol do you have on a typical day when you are drinking? 3 or 4 Q3: How often do you have si x or more drinks on one occasion? Never 01/27/2025 Personal Safety Answer Date Recorded Have you ever been in or are you currently in a harmful physical or emotional relationship or is someone making you feel afraid or unsafe? 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 Gender Identity Male 08/30/2021 10:22 AM CDT Sexual Orientation Not on file documented as of this encounter Plan of Treatment Pending Results Name Type Priority Associated Diagnoses Date/Time Transthoracic Echo (TTE) Complete W Doppler/CF Echocardiography Routine MCCANN (dyspnea on exertion) 07/14/2025 11:02 AM CDT documented as of this encounter Visit Diagnoses Diagnosis MCCANN (dyspnea on exertion) Other dyspnea and respiratory abnormality documented in this encounter Administered Medications Inactive Administered Medications - up to 3 most recent administrations Medication Order MAR Action Action Date Dose Rate Site perflutren lipid (DEFINITY) 1.5 mL in sodium chloride 0.9% 10 mL syringe 1-10 mL, intravenous, Once in imaging, contrast, Starting on Annemarie 07/14/25 at 1031, For 1 dose, Intra-Procedure (CV) Contrast Given 07/14/2025 10:53 AM CDT 1 mL documented in this encounter Orders Medications Ordered That Huy ht Not Have Been Administered Count Last Ordered Date First Ordered Date perflutren lipid (DEFINITY) 1.5 mL in sodium chloride 0.9% 10 mL syringe 1 07/14/2025 documented in this encounter Care Teams Haulpak Driver Relationship Specialty Start Date End Date Demetrius Hairsotn MD [facility] [facility] [place] [address] PCP - General Internal Medicine 05/18/18 documented as of this encounter
--- OUTSIDE RECORDS SUMMARY | 2025-07-14 11:06 | XMS_ITS | Encounter Summary ---
Author Organization [facility] Healthcare Address [address] [place] [address] Care Team Providers Care Speech Correction Consultant Name Role Phone Demetrius Hairston MD Primary Care Provider [phone]- [phone] Encounter Details Date Type Department Care Team (Late st Contact Info) Description 06/02/[address] [address] Vignesh Anton RN Social History Tobacco Use Types Packs/Day Years Used Date Smoking Tobacco: Never Smokeless Tobacco: Never Alcohol Use Standard Drinks/Week Comments Yes 8 (1 standard drink = 0.6 oz pur e alcohol) Sex and Gender Information Value Date Recorded Sex Assigned at Not on file Legal Sex Male 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
--- OUTSIDE RECORDS SUMMARY | 2025-07-14 11:06 | XMS_ITS | Encounter Summary ---
Author Organization [facility] Healthcare Address [address] [place] [address] Care Team Providers Care Dietitian Helper Name Role Phone Demetrius Hairston MD Primary Care Provider [phone]- [phone] Encounter Details Date Type Department Care Team (Late st Contact Info) Description 01/18/2025 Cardiology Conference [facility] Non-invasive Cardiac Diagnostic Testing [address] [place] [address] Jesus De La O, FARIDA Social History Tobacco Use Types Packs/Day Years Used Date Smoking Tobacco: Former Cigarettes Q uit: 08/21/1982 Smokeless Tobacco: Never Alcohol Use Standard Drinks/Week Comments Yes 8 (1 standard drink = 0.6 oz pur e alcohol) Sex and Gender Information Value Date Recorded Sex Assigned at Not on file Legal Sex Male 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
--- OUTSIDE RECORDS SUMMARY | 2025-07-14 11:06 | XMS_ITS | Clinical Summary ---
Author Organization [facility] [address] Address [address] [place] [address] Care Team Providers Care Assistant Golf Coach Name Role Phone Demetrius Hairston MD Primary Care Provider [phone]- [phone] Allergies Active Allergy Reactions Criticality Noted Date Comments Cefuroxime Swelling Medium 12/21/2018 Lips swelled Penicillins Swollen tongue High 06/02/2018 Dzrqtda-Wnv-Muz Reductase Inhibitors Mental status changes High 07/02/2018 Medications folic acid (FOLVITE) 1 mg tablet Take 1 tablet (1 mg total) by mouth every morning Active DULoxetine DR (CYMBALTA) 60 mg capsule Take 1 capsule (60 mg total) by mouth every morning Active magnesium oxide (MAG-OX) 400 mg (241.3 mg elemental magnesium) tablet TAKE 1 TABLET(400 MG) BY MOUTH DAILY 90 tablet 1 1 Active Additional Information Patient taking differently: 400 mg oral Every morning, Reported on 05/12/2025 Jardiance 10 mg tablet Take 1 tablet (10 mg total) by mouth every morning 1 Active atorvastatin (LIPITOR) 10 mg tablet Take 1 tablet (10 mg total) by mouth every morning 4 Active potassium chloride ER 20 mEq CR tablet Take 1 tablet (20 mEq total) by mouth nightly 4 Active buPROPion XL (WELLBUTRIN XL) 300 mg 24 hr tablet Take 150 mg by mouth nightly 4 Active furosemide (LASIX) 20 mg tablet Take 1 tablet (20 mg total) by mouth every morning Active METOPROLOL SUCCINATE ORAL Take 25 mg by mouth 2 (two) times a day Active cyanocobalamin (Vitamin B-12) 1,000 mcg tabletIndicatio ns:Prevention of Vitamin B12 Deficiency Take 1 tablet (1,000 mcg total) by mouth every morning Active aspirin 81 mg chewable tabletIndicatio ns:coronary artery disease Take 1 tablet (81 mg total) by mouth daily 30 tablet 11 5 02/06/20 26 Active clopidogreL (PLAVIX) 75 mg tabletIndicatio ns:coronary artery disease Take 1 tablet (75 mg total) by mouth daily 90 tablet 1 5 08/04/20 25 Active Active Problems Problem Noted Date Diagnosed Date Presence of Amulet left atrial appendage closure device 02/03/2025 History of GI bleed 02/03/2025 Severe anemia 01/13/2025 Generalized anxiety disorder 03/26/2024 Moderate recurrent major depression 03/26/2024 Fungal otitis externa 09/14/2020 Essential hypertension 08/12/2019 Lipid screening 07/02/2018 Chronic systolic heart failure 07/02/2018 History of alcoholism 07/02/2018 Stage 3 chronic kidney disease 07/02/2018 Elevated liver enzymes 07/02/2018 Pulmonary hypertension 07/02/2018 NICM (nonischemic cardiomyopathy) 06/08/2018 Overview (06/08/2018): Added automatically from request for surgery [id number] PAF (paroxysmal atrial fibrillation) Resolved Problems Problem Noted Date Diagnosed Date Resolved Date RU (obstructive sleep apnea) 03/14/2022 01/27/2025 Chronic anticoagulation 03/01/202104/18 Encounters Date Type Department Care Team Description 07/14/2025 9:15 AM CDT Ancillary Procedure [facility] Medical [facility] Cardiology [address] [place] [address] [place] [phone] MCCANN (dyspnea on exertion) 06/02/2025 Telephone [facility] Cardiology [address] [place] [address] [address] [place] [address] Rubén Plunkett MD 05/12/2025 10:15 AM CDT Office Visit [facility] Cardiology [address] [place] [address] Rubén Plunkett MD Chronic systolic heart failure (HCC) (Primary Dx); NICM (nonischemic cardiomyopathy) (HCC); PAF (paroxysmal atrial fibrillation) (HCC); Pulmonary hypertension (HCC) from Last 3 Months Surgical History Surgery Date Site/Laterality Comments BACK SURGERY lumbar SHOULDER SURGERY rotator cuff KNEE ARTHROSCOPY W/ LATERAL RELEASE 2010 VASECTOMY 1984 COLONOSCOPY ESOPHAGOGASTRODUODENOSCOPY IMPLANTABLE CARDIAC DEVICE 02/03/2025 N/A Procedure: PERC EULOGIO CLOSE W/IMPLANT 07229; Surgeon: Anthony Leslie MD; Location: CARDIAC SENIOR COPYWRITER; Service: Cardiovascular; Laterality: N/A; Medical devices from this surgery are in the Medical Devices section. Medical History Medical History Date Comments Hypertension A-fib (HCC) Alcohol abuse 2018 Clotting disorder 2018 Heart disease 2018 Cardiomyopathy History of anemia History of alcohol abuse Chronic systolic heart failure (HCC) Chronic kidney disease Stage 3a chronic kidney disease (CKD) (HCC) Anxiety Awareness under anesthesia Family History Medical History Relation Name Comments COPD Father Stanford Pabon Cancer Mother Flor Pabon Lung cancer Mother Flor Pabon Relation Name Status Comments Father Stanford Pabon Mother Flor Pabon Social History Tobacco Use Types Packs/Day Years Used Date Smoking Tobacco: Former Cigarettes Q uit: 08/21/1982 Smokeless Tobacco: Never Tobacco Cessation:Counseling Given: Not Answered Alcohol Use Standard Drinks/Week Comments Yes 8 [...] on file Legal 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 Gender Identity Male 08/30/2021 10:22 AM CDT Sexual Orientation Not on file Obstetrics History Last Filed Vital Signs Vital Sign Reading Time Taken Comments Blood Pressure 138/76 05/12/2025 10:23 AM CDT Pulse 71 05/12/2025 10:23 AM CDT Temperature 36.7 C (98.1 F) 03/03/2025 11:19 AM CDT Respiratory Rate 16 03/29/2025 9:13 AM CDT Oxygen Saturation 97% 05/12/2025 10: 23 AM CDT Inhaled Oxygen Concentration - - Weight 107.3 kg (236 lb 9.6 oz) 025 10:23 AM CDT Height 182.9 cm (6') 05/12/2025 10:23 AM CDT Body Mass Index 32.09 05/12/2025 10:23 AM CDT Plan of Treatment Health Maintenance Due Date Last Done Comments Colon Cancer Screening-Colonoscopy 1955 Depression Screening 1955 Prostate Cancer Screening-PSA 1955 DTaP/Tdap/Td Vaccine (1 - Tdap) 1966 Hepatitis B Screening 1973 Pneumococcal vaccine 65+ (1 of 2 - PCV) 1974 Abdominal Aortic Aneurysm (AAA) Screen 2020 Well Visit 65+ 2020 Influenza Vaccine (#1) 2025 Fall Risk Assessment 03/03/2026 03/03/2025, 03/09/20 24 Hepatitis C Screening Completed 06/03/2018 Zoster Vaccine Completed 12/12/2023, 10/16/2023 Medical Devices Implanted Type Area Functional Analyst Device Identifier Shelf Expiration Date Model / Serial / Lot [employer] V[employer] System Closure Repair Femoral Artery Suture Mediated Perclose Prostyle 61779-83 - [id number] Implanted:Qty: 1 on 02/03/2025 by Anthony Leslie MD at [facility] Vascular 11/16/2026 [id number] / / [id number] [employer] System Closure Repair Femoral Artery Suture Mediated Perclose Prostyle 98753-26 - [id number] Implanted:Qty: 1 on 02/03/2025 by Anthony Leslie MD at [facility] Vascular 11/16/2026 [id number] / / [id number] [employer] Occluder Cvasc Eulogio Flexible Braided Amplatzer Amulet 31mm Nitinol [id number] - [id number] Implanted:Qty: 1 on 02/03/2025 by Anthony Leslie MD at [facility] [employer] 02/15/2028 [id number] Procedures Procedure Name Priority Date/Time Associated Diagnosis Comments HEPATITIS C ANTIBODY Routine 06/03/2018 12:05 AM CDT from Last 3 Months or Most Recently Relevant to Health Maintenance Results * Hepatitis C antibody (06/03/2018 12:05 AM CDT) Hep C Ab Negative Negative [facility] Blood specimen (specimen) 06/03/2018 12:05 AM CDT 06/03/2018 12:28 AM CDT Narrative EDDIE - 06/03/2018 3:56 AM CDT Rylan Oakley MD LAB MICROBIOLOGY - GENERAL ORDER JOSHUA Final Result [facility] [address] Department [place] [address] from Last 3 Months or Most Recently Relevant to Health Maintenance Insurance [employer] MEDICARE GOLD [employer] [place] [employer] MEDICARE GOLD [employer] MEDICARE GOLD Advance Directives For more information, please contact: [phone] * Full Code (Latest Code Status on File) Date Activated Date Inactivated Comments 06/09/2018 10:33 AM 06/09/2018 6:21 PM Care Teams Assistant Golf Coach Relationship Specialty Start Date End Date Demetrius Hairston MD [address] [place] [address] PCP - General Internal Medicine 05/18/18
--- OUTSIDE RECORDS SUMMARY | 2025-07-14 11:06 | XMS_ITS | Encounter Summary ---
Author Organization [facility] Healthcare Address [address] [place] [address] Care Team Providers Care Band Presser Name Role Phone Demetrius Hairston MD Primary Care Provider +1- [phone] Encounter Details Date Type Department Care Team (Late st Contact Info) Description 02/10/2025 [facility] Post Discharge Follow up phone call [address] [address] Brenda Wilson Social History Tobacco Use Types Packs/Day Years [...] making you feel afraid or unsafe? 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
--- OUTSIDE RECORDS SUMMARY | 2025-07-14 11:06 | XMS_ITS | Clinical Summary ---
Author Organization [facility] Address [address] [place] [id number] Care Team Providers Care [employer] Consultant Name Role Phone Demetrius Hairston MD Primary Care Provider [phone] Social History Tobacco Use Types Packs/Day Years Used Date Smoking Tobacco: Never Assessed Sex and Gender Information Value Date Recorded Sex Assigned at Not on file Legal Sex Male 2:40 PM [employer] Gender Identity Not on file Sexual Orientation Not on file Plan of Treatment Health Maintenance Due Date Last Done Comments Colorectal Cancer Screening Colonoscopy (10 Years) 1955 Hepatitis C 1973 DTaP, Tdap and Td Vaccines ( 1 - Tdap) 1974 Pneumococcal Vaccine: 50+ Ye ars (1 of 1 - PCV) 2005 Zoster Vaccines (1 of 2) 2005 COVID-19 Vaccine ( - 2023-2 5 season) 2024 RSV Immunization or 60+ Years (1 - 1-dose 75+ series) 2030 Meningococcal B Vaccine Aged Out No l onger eligible based on patient's age to complete this topic Meningococcal Vaccine Aged Out No mack beatriz eligible based on patient's age to complete this topic RSV Immunizations Under 20 Months Aged Out No longer eligible based on patient's age to complete this topic Insurance [facility] Care Teams [employer] Consultant Relationship Specialty Start Date End Date Demetrius Hairston MD [id number] [address] PCP - General INTERNAL MEDICINE 12/16/19
--- OUTSIDE RECORDS SUMMARY | 2025-07-14 11:06 | XMS_ITS | Patient Health Record ---
Author Organization [facility] [employer] Address [address] [facility] [address] [place] [address] Care Team Providers Care Engineering Aide Name Role Phone Pola Rios Unavailable [phone] Allergies Allergen (clinical drug ingredient) Drug/Non Drug Allergy documented on EMR Reaction Allergy Type Onset Date Status penicillin V PENICILLIN V (uncoded) Unknown Allergy 02/2023 Active Substance with 4-epqwmni-0-methylgluta ryl-coenzyme A reductase inhibitor mechanism of action (substance) [id number] REDUCTASE INHIBITORS (uncoded) Unknown Allergy 03/20/2023 Active cefuroxime Cefuroxime Unknown Drug Allergy 03/20/2023 Acti ve Reason For Referral No Information Medications Medication SIG (Take, Route, Frequency, Duration) Notes Start Date End Date Status buPROPion HCl ER (XL) 300 MG Tablet Extended Release 24 Hour 1 tablet every morning Oral Once a day; Duration: 90 days Active Jardiance 10 MG Tablet Oral 03/26/2024 Active Folic Acid 1 MG Tablet TAKE 1 TABLET BY MOUTH ONCE DAILY IN THE MORNING Oral; Duration: 90 Days Active MAGnesium-Oxide 400 (240 Mg) MG Tablet TAKE 1 TABLET BY MOUTH ONCE DAILY Oral; Duration: 90 Days Active FeroSul 325 (65 Fe) MG Tablet TAKE 1 TABLET BY MOUTH ONCE DAILY Oral; Duration: 90 Days Active traMADol HCl 50 MG Tablet TAKE 1 TABLET BY MOUTH TWICE DAILY Oral; Duration: 7 Days Active DULoxetine HCl 60 MG Capsule Delayed Release Particles 1 capsule Oral Once a day; Duration: 90 days Active Furosemide 40 MG Tablet TAKE 1 TABLET BY MOUTH ONCE DAILY Oral; Duration: 90 Days Active Xarelto 20 MG Tablet TAKE 1 TABLET BY [facility] ONCE DAILY Oral; Duration: 30 Days Active Potassium Chloride ER 20 MEQ Tablet Extended Release TAKE 1 TABLET BY MOUTH ONCE DAILY Oral; Duration: 90 Days Active Atorvastatin Calcium 10 MG Tablet TAKE 1 TABLET BY MOUTH ONCE DAILY Oral; Duration: 90 Days Active Metoprolol Tartrate 25 MG Tablet TAKE 1 TABLET BY MOUTH TWICE DAILY Oral; Duration: 90 Days Active Pantoprazole Sodium 40 MG Tablet Delayed Release TAKE 1 TABLET BY MOUTH ONCE DAILY IN THE MORNING Oral; Duration: 30 Days Active Immunizations Vaccine Route Administration Date Status Comme nts Pfizer [employer] Covid-19 Vac cine 2nd dose Unknown 01/16/2021 Administered Pfizer [employer] Covid-19 Vac cine 2nd dose Unknown 02/10/2021 Administered Pfizer [employer] Covid-19 Vac cine 2nd dose Unknown 10/21/2021 Administered Social History Tobacco Use: Social History Observation Description Date Details (start date - stop date) Former Smoker NA - NA Sex Assigned At : Social History Observation Description Sex Assigned At Male Social History Tobacco Use: Social Info Question Answer Notes Tobacco Control (Standard) Tobacco use: Former smoker Additional Details Category Social Info Options Details Migrated Social History Migrated Social History Alcohol Intake: Moderate 03/20/2023,Tobacco Years: Former smoker 01/08/2022,Smoking Status: 20 09/12/2023 Problems Problem Type SNOMED Code ICD Code Onset Dates Problem Status W/U Status Risk Notes Problem Moderate recurrent major depression (25755337) Major depressive disorder, recurrent, moderate (F33.1) 03/26/20 24 Active confirmed Problem Generalized anxiety disorder (73525547) Generalized anxiety disorder (F41.1) 03/26/20 24 Active confirmed Problem Essential hypertension (30262409) Essential (primary) hypertension (I10) 03/26/20 24 Active confirmed Problem Generalized anxiety disorder (31226642) KYLE (generalized anxiety disorder) (F41.1) Active confirmed Problem Memory impairment (175825893) Memory impairment (R41.3) Active confirmed Problem Chronic kidney disease stage 3 (disorder) (164763444) Stage 3 chronic kidney disease (N18.30) 07/02/20 18 Active confirmed Problem Cardiomyopathy associated with another disorder (090394413) NICM (nonischemic cardiomyopathy) (CMS/HCC) (I42.8) 07/02/20 18 Active confirmed Vital Signs Heart Rate 116 /min 06/29/2025 Height-cm 180.34 cm 06/29/2025 Blood pressure diastolic 81 mm Hg 06/29/2025 Weight-kg 107.05 kg 06/29/2025 Height 71.00 in 06/29/2025 Blood pressure systolic 115 mm Hg 06/29/2025 Weight 236 lbs 06/29/2025 BMI 32.91 kg/m2 06/29/2025 Encounters Encounter Location Date Provider Diagnosis [facility] [address] [facility] [address] [place] [address] 12/27/2024 [place] Essential (primary) hypertension I10 ; Major depressive disorder, recurrent, moderate F33.1 ; NICM (nonischemic cardiomyopathy) (CMS/HCC) I42.8 ; Stage 3 chronic kidney disease N18.30 ; Generalized anxiety disorder F41.1 ; Benign essential HTN I10 ; Memory impairment R41.3 and KYLE (generalized anxiety disorder) F41.1 [facility] [address] [facility] [address] [place] [address] 01/14/2025 [place] Memory impairment R4 1.3 [facility] [address] [facility] [address] [place] [address] 03/28/2025 [place] Major depressive disorder, recurrent, moderate F33.1 ; Generalized anxiety disorder F41.1 ; NICM (nonischemic cardiomyopathy) (CMS/HCC) I42.8 ; Essential (primary) hypertension I10 ; Stage 3 chronic kidney disease N18.30 ; Negative depression screening Z13.31 ; Benign essential HTN I10 ; Memory impairment R41.3 ; KYLE (generalized anxiety disorder) F41.1 ; Encounter for screening for cardiovascular disorders Z13.6 and Dietary counseling and surveillance Z71.3 [facility] [place] [id number] COUNT INCLUDES THE [facility] [address] [address] 06/29/2025 [place] Major depressive disorder, recurrent, moderate F33.1 ; Generalized anxiety disorder F41.1 ; NICM (nonischemic cardiomyopathy) (CMS/HCC) I42.8 ; Essential (primary) hypertension I10 and Stage 3 chronic kidney disease N18.30 Assessments Encounter Date Diagnosis (ICD Code) Assessment Notes Treatment Notes Treatment Clinical Notes Section Notes 12/27/2024 Essential (primary) hypertension (ICD-10 - I10) 01/14/2025 Memory impairment (ICD-10 - R41.3) Based on the provided assessment results for the 69-year-old patient, here is a summary and interpretation of cognitive performance: Cummings Scores and Interpretation: SLUMS ([facility] Mental Status Examination): Score: 21 This score suggests mild cognitive impairment (MCI), as a SLUMS score between 21-26 is often indicative of possible MCI, depending on educational background. IQCODE (Informant Questionnaire on Cognitive Decline in the Elderly): Score: 1.63 This score is below the typical threshold for cognitive impairment (which is usually above 3.3), indicating that significant cognitive decline is not reported based on informant responses. DSM-V Criteria for Neurocognitive Disorder: Subjective Cognitive Decline: Not reported Objective Cognitive Impairment: Not detected Functional Dependence: Reported (IADL deficits) These results suggest that the patient does not meet DSM-5 criteria for mild neurocognitive disorder but does show some functional difficulties. [facility] Cognitive Domain Performance: Memory (Visuospatial Working Memory, Episodic Memory): Within typical range Reasoning (Mental Rotation, Attention): Within typical range Verbal Ability (Digit Span, Response Inhibition): Within typical range Overall: No significant cognitive deficits detected Clinical Summary & Recommendations: Current Status: No objective cognitive impairment detected, but functional dependence in Instrumental Activities of Daily Living (IADL) is noted. This may indicate difficulties with complex daily tasks, warranting further evaluation. Given the SLUMS score (21), mild cognitive concerns may be present, though they are not severe enough to meet diagnostic criteria for mild neurocognitive disorder. Next Steps: Reassessment in 6 months to monitor for potential cognitive decline. Further evaluation of functional impairments (e.g., occupational therapy referral, support for daily activities). Consideration of lifestyle modifications (cognitive engagement activities, social interaction, physical exercise) to maintain cognitive function. 03/28/2025 Major depressive disorder, recurrent, moderate (ICD-10 - F33.1) : 01/14/2025Summa ry: [facility] Clinical Report for Stanford Franco, dated 01/14/2025, evaluates age-related cognitive decline. The assessment indicates potential functional impairment but does not meet the DSM-5 criteria for mild neurocognitive disorder. The report highlights functional dependencies in activities of daily living, despite no detected objective cognitive impairment. The patient is within the typical range for memory, reasoning, and verbal ability domains. The IADL questionnaire suggests low function and dependence, particularly in shopping and medication management. The IQCODE-SR questionnaire does not indicate subjective cognitive decline. The report recommends further consultation to explore dependencies and suggests reassessment in six months to monitor cognitive changes.Results :- Memory: Within typical range; Percentile: 31, Standard Score: 92- Episodic Memory: Within typical range; Percentile: 51, Standard Score: 100- Reasoning: Within typical range; Percentile: 39, Standard Score: 96- Attention: Within typical range; Percentile: 38, Standard Score: 95- Verbal Short-Term Memory: Within typical range; Percentile: 39, Standard Score: 96- Response Inhibition: Within typical range; Percentile: 20, Standard Score: 87- IADL Questionnaire: Indicative of low function, dependence; Test Score: 3 of 5- IQCODE-SR Questionnaire: Not indicative of subjective cognitive decline; Test Score: 1.63 03/28/2025 Generalized anxiety disorder (ICD-10 - F41.1) : 01/14/2025Sum[place] ry: [facility] Clinical Report for Stanford Franco, dated 01/14/2025, evaluates age-related cognitive decline. The assessment indicates potential functional impairment but does not meet the DSM-5 criteria for mild neurocognitive disorder. The report highlights functional dependencies in activities of daily living, despite no detected objective cognitive impairment. The patient is within the typical range for memory, reasoning, and verbal ability domains. The IADL questionnaire suggests low function and dependence, particularly in shopping and medication management. The IQCODE-SR questionnaire does not indicate subjective cognitive decline. The report recommends further consultation to explore dependencies and suggests reassessment in six months to monitor cognitive changes.Results :- Memory: Within typical range; Percentile: 31, Standard Score: 92- Episodic Memory: Within typical range; Percentile: 51, Standard Score: 100- Reasoning: Within typical range; Percentile: 39, Standard Score: 96- Attention: Within typical range; Percentile: 38, Standard Score: 95- Verbal Short-Term Memory: Within typical range; Percentile: 39, Standard Score: 96- Response Inhibition: Within typical range; Percentile: 20, Standard Score: 87- IADL Questionnaire: Indicative of low function, dependence; Test Score: 3 of 5- IQCODE-SR Questionnaire: Not indicative of subjective cognitive decline; Test Score: 1.63 06/29/2025 Major depressive disorder, recurrent, moderate (ICD-10 - F33.1) Mood and depression have been stable over the last three months. No changes in medication regimen since last visit. No reported side effects from duloxetine or bupropion XL. No suicidal ideation or self-harm thoughts. Patient continues duloxetine 60 mg and bupropion XL 300 mg. - Continue duloxetine 60 mg. - Continue bupropion XL 300 mg. - Schedule next follow-up in six months. 06/29/2025 Generalized anxiety disorder (ICD-10 - F41.1) 03/28/2025 NICM (nonischemic cardiomyopathy) (CMS/HCC) (ICD-10 - I42.8) : 01/14/2025Sum[place] ry: [facility] Clinical Report for Stanford Franco, dated 01/14/2025, evaluates age-related cognitive decline. The assessment indicates potential functional impairment but does not meet the DSM-5 criteria for mild neurocognitive disorder. The report highlights functional dependencies in activities of daily living, despite no detected objective cognitive impairment. The patient is within the typical range for memory, reasoning, and verbal ability domains. The IADL questionnaire suggests low function and dependence, particularly in shopping and medication management. The IQCODE-SR questionnaire does not indicate subjective cognitive decline. The report recommends further consultation to explore dependencies and suggests reassessment in six months to monitor cognitive changes.Results :- Memory: Within typical range; Percentile: 31, Standard Score: 92- Episodic Memory: Within typical range; Percentile: 51, Standard Score: 100- Reasoning: Within typical range; Percentile: 39, Standard Score: 96- Attention: Within typical range; Percentile: 38, Standard Score: 95- Verbal Short-Term Memory: Within typical range; Percentile: 39, Standard Score: 96- Response Inhibition: Within typical range; Percentile: 20, Standard Score: 87- IADL Questionnaire: Indicative of low function, dependence; Test Score: 3 of 5- IQCODE-SR Questionnaire: Not indicative of subjective cognitive decline; Test Score: 1.63 12/27/2024 Major depressive disorder, recurrent, moderate (ICD-10 - F33.1) 12/27/2024 NICM (nonischemic cardiomyopathy) (CMS/HCC) (ICD-10 - I42.8) 12/27/2024 Stage 3 chronic kidney disease (ICD-10 - N18.30) 03/28/2025 Essential (primary) hypertension (ICD-10 - I10) : 01/14/2025Sum[place] ry: [facility] Clinical Report for Stanford Franco, dated 01/14/2025, evaluates age-related cognitive decline. The assessment indicates potential functional impairment but does not meet the DSM-5 criteria for mild neurocognitive disorder. The report highlights functional dependencies in activities of daily living, despite no detected objective cognitive impairment. The patient is within the typical range for memory, reasoning, and verbal ability domains. The IADL questionnaire suggests low function and dependence, particularly in shopping and medication management. The IQCODE-SR questionnaire does not indicate subjective cognitive decline. The report recommends further consultation to explore dependencies and suggests reassessment in six months to monitor cognitive changes.Results :- Memory: Within typical range; Percentile: 31, Standard Score: 92- Episodic Memory: Within typical range; Percentile: 51, Standard Score: 100- Reasoning: Within typical range; Percentile: 39, Standard Score: 96- Attention: Within typical range; Percentile: 38, Standard Score: 95- Verbal Short-Term Memory: Within typical range; Percentile: 39, Standard Score: 96- Response Inhibition: Within typical range; Percentile: 20, Standard Score: 87- IADL Questionnaire: Indicative of low function, dependence; Test Score: 3 of 5- IQCODE-SR Questionnaire: Not indicative of subjective cognitive decline; Test Score: 1.63 06/29/2025 NICM (nonischemic cardiomyopathy) (CMS/HCC) (ICD-10 - I42.8) 06/29/2025 Essential (primary) hypertension (ICD-10 - I10) 03/28/2025 Stage 3 chronic kidney disease (ICD-10 - N18.30) : 01/14/2025[place] ry: [facility] Clinical Report for Stanford Franco, dated 01/14/2025, evaluates age-related cognitive decline. The assessment indicates potential functional impairment but does not meet the DSM-5 criteria for mild neurocognitive disorder. The report highlights functional dependencies in activities of daily living, despite no detected objective cognitive impairment. The patient is within the typical range for memory, reasoning, and verbal ability domains. The IADL questionnaire suggests low function and dependence, particularly in shopping and medication management. The IQCODE-SR questionnaire does not indicate subjective cognitive decline. The report recommends further consultation to explore dependencies and suggests reassessment in six months to monitor cognitive changes.Results :- Memory: Within typical range; Percentile: 31, Standard Score: 92- Episodic Memory: Within typical range; Percentile: 51, Standard Score: 100- Reasoning: Within typical range; Percentile: 39, Standard Score: 96- Attention: Within typical range; Percentile: 38, Standard Score: 95- Verbal Short-Term Memory: Within typical range; Percentile: 39, Standard Score: 96- Response Inhibition: Within typical range; Percentile: 20, Standard Score: 87- IADL Questionnaire: Indicative of low function, dependence; Test Score: 3 of 5- IQCODE-SR Questionnaire: Not indicative of subjective cognitive decline; Test Score: 1.63 12/27/2024 Generalized anxiety disorder (ICD-10 - F41.1) 12/27/2024 Benign essential HTN (ICD-10 - I10) 06/29/2025 Stage 3 chronic kidney disease (ICD-10 - N18.30) 03/28/2025 Negative depression screening (ICD-10 - Z13.31) : 01/14/2025Sum[place] ry: [facility] Clinical Report for Stanford Franco, dated 01/14/2025, evaluates age-related cognitive decline. The assessment indicates potential functional impairment but does not meet the DSM-5 criteria for mild neurocognitive disorder. The report highlights functional dependencies in activities of daily living, despite no detected objective cognitive impairment. The patient is within the typical range for memory, reasoning, and verbal ability domains. The IADL questionnaire suggests low function and dependence, particularly in shopping and medication management. The IQCODE-SR questionnaire does not indicate subjective cognitive decline. The report recommends further consultation to explore dependencies and suggests reassessment in six months to monitor cognitive changes.Results :- Memory: Within typical range; Percentile: 31, Standard Score: 92- Episodic Memory: Within typical range; Percentile: 51, Standard Score: 100- Reasoning: Within typical range; Percentile: 39, Standard Score: 96- Attention: Within typical range; Percentile: 38, Standard Score: 95- Verbal Short-Term Memory: Within typical range; Percentile: 39, Standard Score: 96- Response Inhibition: Within typical range; Percentile: 20, Standard Score: 87- IADL Questionnaire: Indicative of low function, dependence; Test Score: 3 of 5- IQCODE-SR Questionnaire: Not indicative of subjective cognitive decline; Test Score: 1.63 12/27/2024 Memory impairment (ICD-10 - R41.3) 03/28/2025 Benign essential HTN (ICD-10 - I10) : 01/14/2025Sum[place] ry: [facility] Clinical Report for Stanford Franco, dated 01/14/2025, evaluates age-related cognitive decline. The assessment indicates potential functional impairment but does not meet the DSM-5 criteria for mild neurocognitive disorder. The report highlights functional dependencies in activities of daily living, despite no detected objective cognitive impairment. The patient is within the typical range for memory, reasoning, and verbal ability domains. The IADL questionnaire suggests low function and dependence, particularly in shopping and medication management. The IQCODE-SR questionnaire does not indicate subjective cognitive decline. The report recommends further consultation to explore dependencies and suggests reassessment in six months to monitor cognitive changes.Results :- Memory: Within typical range; Percentile: 31, Standard Score: 92- Episodic Memory: Within typical range; Percentile: 51, Standard Score: 100- Reasoning: Within typical range; Percentile: 39, Standard Score: 96- Attention: Within typical range; Percentile: 38, Standard Score: 95- Verbal Short-Term Memory: Within typical range; Percentile: 39, Standard Score: 96- Response Inhibition: Within typical range; Percentile: 20, Standard Score: 87- IADL Questionnaire: Indicative of low function, dependence; Test Score: 3 of 5- IQCODE-SR Questionnaire: Not indicative of subjective cognitive decline; Test Score: 1.63 03/28/2025 Memory impairment (ICD-10 - R41.3) : 01/14/2025Sum[place] ry: [facility] Clinical Report for Stanford Franco, dated 01/14/2025, evaluates age-related cognitive decline. The assessment indicates potential functional impairment but does not meet the DSM-5 criteria for mild neurocognitive disorder. The report highlights functional dependencies in activities of daily living, despite no detected objective cognitive impairment. The patient is within the typical range for memory, reasoning, and verbal ability domains. The IADL questionnaire suggests low function and dependence, particularly in shopping and medication management. The IQCODE-SR questionnaire does not indicate subjective cognitive decline. The report recommends further consultation to explore dependencies and suggests reassessment in six months to monitor cognitive changes.Results :- Memory: Within typical range; Percentile: 31, Standard Score: 92- Episodic Memory: Within typical range; Percentile: 51, Standard Score: 100- Reasoning: Within typical range; Percentile: 39, Standard Score: 96- Attention: Within typical range; Percentile: 38, Standard Score: 95- Verbal Short-Term Memory: Within typical range; Percentile: 39, Standard Score: 96- Response Inhibition: Within typical range; Percentile: 20, Standard Score: 87- IADL Questionnaire: Indicative of low function, dependence; Test Score: 3 of 5- IQCODE-SR Questionnaire: Not indicative of subjective cognitive decline; Test Score: 1.63 03/28/2025 KYLE (generalized anxiety disorder) (ICD-10 - F41.1) : 01/14/2025Summa ry: [facility] Clinical Report for Stanford Franco, dated 01/14/2025, evaluates age-related cognitive decline. The assessment indicates potential functional impairment but does not meet the DSM-5 criteria for mild neurocognitive disorder. The report highlights functional dependencies in activities of daily living, despite no detected objective cognitive impairment. The patient is within the typical range for memory, reasoning, and verbal ability domains. The IADL questionnaire suggests low function and dependence, particularly in shopping and medication management. The IQCODE-SR questionnaire does not indicate subjective cognitive decline. The report recommends further consultation to explore dependencies and suggests reassessment in six months to monitor cognitive changes.Results :- Memory: Within typical range; Percentile: 31, Standard Score: 92- Episodic Memory: Within typical range; Percentile: 51, Standard Score: 100- Reasoning: Within typical range; Percentile: 39, Standard Score: 96- Attention: Within typical range; Percentile: 38, Standard Score: 95- Verbal Short-Term Memory: Within typical range; Percentile: 39, Standard Score: 96- Response Inhibition: Within typical range; Percentile: 20, Standard Score: 87- IADL Questionnaire: Indicative of low function, dependence; Test Score: 3 of 5- IQCODE-SR Questionnaire: Not indicative of subjective cognitive decline; Test Score: 1.63 12/27/2024 KYLE (generalized anxiety disorder) (ICD-10 - F41.1) 03/28/2025 Encounter for screening for cardiovascular disorders (ICD-10 - Z13.6) : 01/14/2025[place] ry: [facility] Clinical Report for Stanfrod Franco, dated 01/14/2025, evaluates age-related cognitive decline. The assessment indicates potential functional impairment but does not meet the DSM-5 criteria for mild neurocognitive disorder. The report highlights functional dependencies in activities of daily living, despite no detected objective cognitive impairment. The patient is within the typical range for memory, reasoning, and verbal ability domains. The IADL questionnaire suggests low function and dependence, particularly in shopping and medication management. The IQCODE-SR questionnaire does not indicate subjective cognitive decline. The report recommends further consultation to explore dependencies and suggests reassessment in six months to monitor cognitive changes.Results :- Memory: Within typical range; Percentile: 31, Standard Score: 92- Episodic Memory: Within typical range; Percentile: 51, Standard Score: 100- Reasoning: Within typical range; Percentile: 39, Standard Score: 96- Attention: Within typical range; Percentile: 38, Standard Score: 95- Verbal Short-Term Memory: Within typical range; Percentile: 39, Standard Score: 96- Response Inhibition: Within typical range; Percentile: 20, Standard Score: 87- IADL Questionnaire: Indicative of low function, dependence; Test Score: 3 of 5- IQCODE-SR Questionnaire: Not indicative of subjective cognitive decline; Test Score: 1.63 03/28/2025 Dietary counseling and surveillance (ICD-10 - Z71.3) : 01/14/2025Summa ry: [facility] Clinical Report for Stanford Franco, dated 01/14/2025, evaluates age-related cognitive decline. The assessment indicates potential functional impairment but does not meet the DSM-5 criteria for mild neurocognitive disorder. The report highlights functional dependencies in activities of daily living, despite no detected objective cognitive impairment. The patient is within the typical range for memory, reasoning, and verbal ability domains. The IADL questionnaire suggests low function and dependence, particularly in shopping and medication management. The IQCODE-SR questionnaire does not indicate subjective cognitive decline. The report recommends further consultation to explore dependencies and suggests reassessment in six months to monitor cognitive changes.Results :- Memory: Within typical range; Percentile: 31, Standard Score: 92- Episodic Memory: Within typical range; Percentile: 51, Standard Score: 100- Reasoning: Within typical range; Percentile: 39, Standard Score: 96- Attention: Within typical range; Percentile: 38, Standard Score: 95- Verbal Short-Term Memory: Within typical range; Percentile: 39, Standard Score: 96- Response Inhibition: Within typical range; Percentile: 20, Standard Score: 87- IADL Questionnaire: Indicative of low function, dependence; Test Score: 3 of 5- IQCODE-SR Questionnaire: Not indicative of subjective cognitive decline; Test Score: 1.63 12/27/2024 Other Depression - Assessment: Patient reports stable mood and no recent anxiety or panic attacks. Currently on duloxetine 60 mg and bupropion HCl 300 mg. - Plan: - Continue current medications. - Follow up in 3 months to monitor progress and adjust treatment if necessary. Congestive Heart Failure - Assessment: Patient reports upcoming procedure to place a filter in the heart to avoid the need for blood thinners, which are costly. Procedure to be done at [facility], no specific date yet. - Plan: - Monitor patient's progress and follow up on the procedure outcome. - Encourage patient to maintain regular appointments with their hall porter. Essential Hypertension - Assessment: No specific complaints or concerns reported during the visit. - Plan: - Continue current medications. - Encourage patient to monitor blood pressure regularly and report any significant changes. Sleep and Fatigue - Assessment: Patient reports excessive daytime sleepiness despite adequate sleep, potentially due to taking 8 pills in the morning and 4 in the evening. No history of obstructive sleep apnea. - Plan: - Consider evaluating the impact of current medications on sleep and fatigue. - Encourage patient to maintain good sleep hygiene and discuss any sleep concerns in the next visit. Memory and Concentration - Assessment: Patient reports occasional forgetfulness but believes it is age-appropriate . Agreed to undergo baseline memory testing. - Plan: - Schedule baseline memory testing within the next 3 months. - Follow up on test results and consider further evaluation if necessary. Medication Management - Assessment: Patient's prescriptions will be sent to [facility]. - Plan: - Ensure patient has an adequate supply of medications and refills. - Encourage patient to report any issues or concerns with their medications. Follow-up - Plan: - Schedule a follow-up appointment in 3 months to review the patient's progress, discuss memory testing results, and address any new concerns. 03/28/2025 Viola Franco, a male patient with a history of depression and attention difficulties, presents for follow-up and review of recent memory testing results. Depression Assessment: Patient reports feeling pretty good with no current depression or anxiety. Depression score is 1, indicating no depression. Current medication regimen of duloxetine and bupropion appears to be effective in managing mood and depression symptoms. Plan: - Continue duloxetine 60 mg PO daily - Continue bupropion XL 300 mg PO daily - Follow up in 3 months Cognitive Function Assessment: Recent memory testing results show no objective cognitive changes overall. Memory and episodic memory were within typical range. Reasoning was good. Attention was in the normal range but on the lower side. Patient reports longstanding history of easily becoming distracted, which is consistent with current test results. No current struggles with memory reported by the patient, aside from occasional forgetfulness that he is able to resolve independently. Plan: - Repeat memory testing in September 2025 (approximately 6 months from now) - Continue annual cognitive assessments Hypertension Assessment: Patient's blood pressure status not discussed in detail during this visit. Plan: - Obtain blood pressure measurement before patient leaves the office Disclaimer: This note has been transcribed using speech recognition software and serves as a reflection of the patient's visit. While efforts have been made to ensure accuracy, there may be errors, including video poker floorman inaccuracies and misspellings of medication names. This document should not be considered a verbatim record, and any discrepancies should be verified with the provider. : 01/14/2025Summa ry: [facility] Clinical Report for Stanford Franco, dated 01/14/2025, evaluates age-related cognitive decline. The assessment indicates potential functional impairment but does not meet the DSM-5 criteria for mild neurocognitive disorder. The report highlights functional dependencies in activities of daily living, despite no detected objective cognitive impairment. The patient is within the typical range for memory, reasoning, and verbal ability domains. The IADL questionnaire suggests low function and dependence, particularly in shopping and medication management. The IQCODE-SR questionnaire does not indicate subjective cognitive decline. The report recommends further consultation to explore dependencies and suggests reassessment in six months to monitor cognitive changes.Results :- Memory: Within typical range; Percentile: 31, Standard Score: 92- Episodic Memory: Within typical range; Percentile: 51, Standard Score: 100- Reasoning: Within typical range; Percentile: 39, Standard Score: 96- Attention: Within typical range; Percentile: 38, Standard Score: 95- Verbal Short-Term Memory: Within typical range; Percentile: 39, Standard Score: 96- Response Inhibition: Within typical range; Percentile: 20, Standard Score: 87- IADL Questionnaire: Indicative of low function, dependence; Test Score: 3 of 5- IQCODE-SR Questionnaire: Not indicative of subjective cognitive decline; Test Score: 1.63 Plan Of Treatment Future Test Test Name Order Date MCI Testing 12/27/2024 SLUMS Testing 12/27/2024 Next Appt Details Provider Name:Pola Rios , 09/29/2025 11:00:00 AM, [address], [facility] [address], [place], [address], Provider Name:Pola Rios , 12/29/2025 11:15:00 AM, [address], [address], [place], [address], Insurance Providers Payer Name Payer Address Payer Phone Subscriber Number Group Number Insured Name Patient Relationship to Insured Coverage Start Date Coverage End Date [employer] o [address] [place] [address] [id number] STANFORD WEISS Self - patient is the insured Medical (General) History Medical History History ICD Code Problems: Atrial fibrillation Essential hypertension Generalized anxiety disorder Moderate recurrent major depression Morbid obesity , Major depressive disorder, recurrent, mo derate Surgical History Surgery Date(Month/Year) Heart surgery Any surgical history Tonsilectomy/adenoids
== END 2025-07-14 11:00 | disposition home or self-care (01) ==
PROVIDERS: PCP Internal Medicine; Visit Provider Internal Medicine
DX: R06.02 Shortness of breath (principal); I51.7 Cardiomegaly
CPT/HCPCS: 71046

== ENCOUNTER 2025-08-09 12:33 | Inpatient (IN) | payer MEDICARE, SELFPAY ==
--- NOTE | ~2025-08-09 | XR_ITS ---
EXAMINATION: XR chest 2V 08/09/2025 13:43 INDICATION: Shortness of breath PROCEDURE: 2 view chest COMPARISON: Comparison to multiple prior studies sequentially, with oldest reviewed study dated 04/27/2021. FINDINGS: The lungs are clear. Cardiomegaly. There is left atrial closure device. There are no pleural effusions. There is no pneumothorax suspected. IMPRESSION: 1: NO ACUTE CARDIOPULMONARY DISEASE. Reviewed, dictated and finalized at location O.
[2025-08-09 12:36] VITALS: BP 128/94; PULSE 87; RESP 16; TEMP 36.2; O2SAT 98
--- OUTSIDE RECORDS SUMMARY | 2025-08-09 12:41 | XMS_ITS | Clinical Summary ---
Author Organization [facility] [address] Address [address] [place] [address] Care Team Providers Care Ground Water Pump Installer Name Role Phone Von Roth MD Primary Care Provider [phone] Allergies Active Allergy Reactions Criticality Noted Date Comments Cefuroxime Swelling Medium 12/21/2018 Lips swelled Penicillins Swollen tongue High 06/02/2018 Fdpbbis-Fyr-Nmm Reductase Inhibitors Mental status changes High 07/02/2018 [...] by mouth daily 90 tablet 1 5 Active Active Problems Problem Noted Date Diagnosed [...] (06/08/2018): Added automatically from request for surgery [id number] PAF (paroxysmal atrial fibrillation) Resolved Problems Problem Noted Date Diagnosed Date Resolved Date RU (obstructive sleep apnea) 03/14/2022 01/27/2025 Chronic anticoagulation 03/01/202104/18 Encounters Date Type Department Care Team Description 07/14/2025 9:15 AM CDT Ancillary Procedure [facility] [address] [facility] [address] [place] [phone] MCCANN (dyspnea on exertion) 06/02/2025 Telephone [facility] [address] [facility] [address] [place] [phone] Rubén Plunkett MD 05/12/2025 10:15 AM CDT Office Visit [facility] [address] [place] [address] Rubén Plunkett MD Chronic systolic heart failure (HCC) (Primary Dx); NICM (nonischemic cardiomyopathy) (HCC); PAF (paroxysmal atrial fibrillation) (HCC); Pulmonary hypertension (HCC) from Last 3 Months Surgical History Surgery Date Site/Laterality Comments BACK SURGERY lumbar SHOULDER SURGERY rotator cuff KNEE ARTHROSCOPY W/ LATERAL RELEASE 2010 VASECTOMY 1984 COLONOSCOPY ESOPHAGOGASTRODUODENOSCOPY IMPLANTABLE CARDIAC DEVICE 02/03/2025 N/A Procedure: PERC EULOGIO CLOSE W/IMPLANT 80994; Surgeon: Anthony Leslie MD; Location: [facility]IAC [facility]; Service: Cardiovascular; Laterality: N/A; Medical devices from [...] Medical History Relation Name Comments COPD Father Allen Pabon Cancer Mother Flor Pabon Lung cancer Mother Flor Pabon Relation Name Status Comments Father Allen Pabon Mother Flor Pabon Social History Tobacco [...] on file 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 Gender Identity Male 08/30/2021 10:22 AM CDT [...] 12/12/2023, 10/16/2023 Medical Devices Implanted Type Area Sharepoint Manager Device Identifier Shelf Expiration Date Model / Serial / Lot [employer] System Closure Repair Femoral Artery Suture Mediated Perclose Prostyle 94251-11 - [id number] Implanted:Qty: 1 on 02/03/2025 by Anthony Leslie MD at [facility] [employer] 11/16/2026 [id number] / / [id number] [employer] System Closure Repair Femoral Artery Suture Mediated Perclose Prostyle 74909-37 - [id number] Implanted:Qty: 1 on 02/03/2025 by Anthony Leslie MD at [facility] Vascular 11/16/2026 [id number] / / [id number] [employer] Occluder Cvasc Eulogio Flexible Braided Amplatzer Amulet 31mm Nitinol [id number] - [id number] Implanted:Qty: 1 on 02/03/2025 by Anthony Leslie MD at [facility] [employer] 02/15/2028 [id number] Procedures Procedure Name Priority Date/Time Associated Diagnosis Comments TRANSTHORACIC ECHO (TTE) COMPLETE W DOPPLER/CF W CONTRAST Routine 07/14/2025 11:02 AM CDT MCCANN (dyspnea on exertion) HEPATITIS C ANTIBODY Routine 06/03/2018 12:05 AM CDT from Last 3 Months or Most Recently Relevant to Health Maintenance Results * TRANSTHORACIC ECHO (TTE) COMPLETE W DOPPLER/CF W CONTRAST (07/14/2025 11:02 AM CDT) Estimated EF 30 % CONS SCIMAGE EF Mod BP 32 % CONS SCIMAGE Anatomical Region Laterality Modality Ultrasound 07/14/2025 9:29 AM CDT Narrative 07/14/2025 1:06 PM CDT [facility] [address] [facility] [place] [address] [id number] [address] [facility] [address] [place] [address], [place] [address] P:[phone] P:[phone] Echocardiographic Report Patient Name: ALLEN PABON M : 1955 Study Date: 07/14/2025 9:29:07 AM Sex: M Radiological Engineer: Hanna Gordon (Suzanne)(CT), [facility] Location: [place] Ref Provider: VON ROTH Height(Cm): 183 BSA: 2.33 Weight(Kg): 107 Heart Rate: 128 BP: 138 / 76 Quality: Good Order Provider: VON ROTH PROCEDURES: Echocardiographic Report: Transthoracic echocardiogram with complete 2D, M-Mode, color Doppler examination and Definity contrast. With Strain Analysis. INDICATIONS: R06.09 Other forms of dyspnea. MEASUREMENTS: 2D/MM Value Range Doppler Value Range EF Mod BP 32 % [ 52 - 72 ] CARMEN Vmax 2.73 cm2 [ 2.00 - 4.00 ] Estimated EF 30 % AV Mean PG 2 mmHg LV GLS -4.14 % AV Peak Cristofer 0.90 m/s [ 1.00 - 1.70 ] LVIDd 2D 4.64 cm [ 4.20 - 5.80 ] AV Peak PG 3 mmHg LVIDs 2D 4.00 cm [ 2.50 - 4.00 ] AV VTI 11.92 cm LVPWd 2D 1.01 cm [ 0.60 - 1.00 ] LVOT Diam 2.03 cm [ 1.70 - 2.10 ] IVSd 2D 1.06 cm [ 0.60 - 1.00 ] LVOT Peak Cristofer 0.77 m/s [ 0.70 - 1.10 ] AoR Diam 2D 3.54 cm [ 3.10 - 3.70 ] LVOT VTI 10.76 cm LA Volume 57.13 ml [ 18.00 - 58.00 ] PV Peak Cristofer 0.61 m/s [ 0.40 - 0.80 ] LA Volume Index 25 cc/m2 [ 16 - 28 ] TR Peak Cristofer 2.71 m/s [ 1.00 - 2.80 ] RA Volume 54.28 ml TR Peak PG 29 mmHg RV S` 9.07 mmHg Tapse 1.91 cm [ 1.71 - 5.00 ] 2D/MM Value Range Doppler Value Range - FINDINGS: Interpretation Site: Exam was interpreted at [facility]. Left Ventricle: Definity contrast agent used to visually enhance endocardial wall motion and contractility. Lot Number: [id number]. Mild concentric left ventricular hypertrophy. Normal left ventricular size. Severe global left ventricular systolic dysfunction. Diastolic dysfunction is present. Ejection fraction is measured at 32 %. Ejection Fraction is visually estimated to be 30 %. Global Longitudinal Strain is -4 %. GLS is abnormal. Resting Segmental Wall Motion Analysis: Total wall motion score is 2.12. There is dyskinesis of the apical cap. The remaining left ventricular segments demonstrate hypokinesis. Right Ventricle: Normal right ventricular size. Normal right ventricular systolic function. Left Atrium: There is severe enlargement of left atrium. Right Atrium: There is moderate enlargement of right atrium. Atrial Septum: Normal atrial septum. Mitral Valve: Moderate mitral annular calcification. Moderate mitral valve regurgitation. There is no hemodynamically significant mitral stenosis by Doppler. Aortic Valve: No evidence of hemodynamically significant aortic stenosis by Doppler. Aortic cusps appear mildly sclerotic. Trileaflet aortic valve. Mild aortic valve regurgitation. Tricuspid Valve: Normal appearance of the tricuspid valve. Mild pulmonary hypertension based on right ventricular systolic pressure. Estimated peak RVSP is 35-40 mmHg. Mild tricuspid regurgitation. Pulmonic Valve: Normal appearance of the pulmonic valve. No pulmonic stenosis. Mild pulmonic regurgitation. Pericardium: Normal pericardium with no significant pericardial effusion. Aorta: Sinus of Valsalva is mildly dilated. IVC: Normal size and normal respiratory collapse consistent with normal right atrial pressure (<5 mmHg). CONCLUSIONS: Definity contrast agent used to visually enhance endocardial wall motion and contractility. Lot Number: [id number]. Mild concentric left ventricular hypertrophy. Normal left ventricular size. Severe global left ventricular systolic dysfunction. Diastolic dysfunction is present. Ejection fraction is measured at 32 %. Ejection Fraction is visually estimated to be 30 %. Global Longitudinal Strain is -4 %. GLS is abnormal. There is severe enlargement of left atrium. There is moderate enlargement of right atrium. Moderate mitral annular calcification. Moderate mitral valve regurgitation. Aortic cusps appear mildly sclerotic. Mild aortic valve regurgitation. Mild pulmonary hypertension based on right ventricular systolic pressure. Estimated peak RVSP is 35-40 mmHg. Mild tricuspid regurgitation. Mild pulmonic regurgitation. Sinus of Valsalva is mildly dilated. Atrial fibrillation with rapid ventricular response throughout the entirety of the study. Electronically Signed By: Rubén Plunkett MD 07/14/2025 1:06:17 PM CDT Procedure Note Rubén Plunkett MD - 07/14/2025 [facility] [address] [facility] [address], [place] [address] [address] [facility] [address], [place] [address] P:[phone] P:[phone] Echocardiographic Report Patient Name: ALLEN PABON M : 1955 Study Date: 07/14/2025 9:29:07 AM Sex: M Radiological Engineer: Hanna Mccollum)(CT), [facility] Location: [facility] Provider: VON ROTH Height(Cm): 183 BSA: 2.33 Weight(Kg): 107 Heart Rate: 128 BP: 138 / 76 Quality: Good Order Provider: VON ROTH PROCEDURES: Echocardiographic Report: Transthoracic echocardiogram with complete 2D, M-Mode, color Dopplerexamination and Definity contrast. With Strain Analysis. INDICATIONS: R06.09 Other forms of dyspnea. MEASUREMENTS: 2D/MM Value Range Doppler ValueRange EF Mod BP 32 % [ 52 - 72 ] CARMEN Vmax 2.73cm2 [ 2.00 - 4.00 ] Estimated EF 30 % AV Mean PG 2mmHg LV GLS -4.14 % AV Peak Cristofer 0.90m/s [ 1.00 - 1.70 ] LVIDd 2D 4.64 cm [ 4.20 - 5.80 ] AV Peak PG 3mmHg LVIDs 2D 4.00 cm [ 2.50 - 4.00 ] AV VTI 11.92cm LVPWd 2D 1.01 cm [ 0.60 - 1.00 ] LVOT Diam 2.03cm [ 1.70 - 2.10 ] IVSd 2D 1.06 cm [ 0.60 - 1.00 ] LVOT Peak Cristofer 0.77m/s [ 0.70 - 1.10 ] AoR Diam 2D 3.54 cm [ 3.10 - 3.70 ] LVOT VTI 10.76cm LA Volume 57.13 ml [ 18.00 - 58.00 ] PV Peak Cristofer 0.61m/s [ 0.40 - 0.80 ] LA Volume Index 25 cc/m2 [ 16 - 28 ] TR Peak Cristofer 2.71m/s [ 1.00 - 2.80 ] RA Volume 54.28 ml TR Peak PG 29mmHg RV S` 9.07 mmHg Tapse 1.91 cm [ 1.71 - 5.00 ] 2D/MM Value Range Doppler ValueRange - FINDINGS: Interpretation Site: Exam was interpreted at [facility]. Left Ventricle: Definity contrast agent used to visually enhance endocardial wall motionand contractility. Lot Number: [id number]. Mild concentric left ventricularhypertrophy. Normal left ventricular size. Severe global left ventricular systolicdysfunction. Diastolic dysfunction is present. Ejection fraction is measured at 32 %. EjectionFraction is visually estimated to be 30 %. Global Longitudinal Strain is -4 %. GLS isabnormal. Resting Segmental Wall Motion Analysis: Total wall motion score is 2.12. There is dyskinesis of the apical cap.The remaining left ventricular segments demonstrate hypokinesis. Right Ventricle: Normal right ventricular size. Normal right ventricular systolicfunction. Left Atrium: There is severe enlargement of left atrium. Right Atrium: There is moderate enlargement of right atrium. Atrial Septum: Normal atrial septum. Mitral Valve: Moderate mitral annular calcification. Moderate mitral valveregurgitation. There is no hemodynamically significant mitral stenosis by Doppler. Aortic Valve: No evidence of hemodynamically significant aortic stenosis by Doppler.Aortic cusps appear mildly sclerotic. Trileaflet aortic valve. Mild aortic valveregurgitation. Tricuspid Valve: Normal appearance of the tricuspid valve. Mild pulmonary hypertensionbased on right ventricular systolic pressure. Estimated peak RVSP is 35-40 mmHg. Mildtricuspid regurgitation. Pulmonic Valve: Normal appearance of the pulmonic valve. No pulmonic stenosis. Mildpulmonic regurgitation. Pericardium: Normal pericardium with no significant pericardial effusion. Aorta: Sinus of Valsalva is mildly dilated. IVC: Normal size and normal respiratory collapse consistent with normal rightatrial pressure (<5 mmHg). CONCLUSIONS: Definity contrast agent used to visually enhance endocardial wall motionand contractility. Lot Number: [id number]. Mild concentric left ventricularhypertrophy. Normal left ventricular size. Severe global left ventricular systolicdysfunction. Diastolic dysfunction is present. Ejection fraction is measured at 32 %. EjectionFraction is visually estimated to be 30 %. Global Longitudinal Strain is -4 %. GLS isabnormal. There is severe enlargement of left atrium. There is moderate enlargement of right atrium. Moderate mitral annular calcification. Moderate mitral valveregurgitation. Aortic cusps appear mildly sclerotic. Mild aortic valve regurgitation. Mild pulmonary hypertension based on right ventricular systolic pressure.Estimated peak RVSP is 35-40 mmHg. Mild tricuspid regurgitation. Mild pulmonic regurgitation. Sinus of Valsalva is mildly dilated. Atrial fibrillation with rapid ventricular response throughout theentirety of the study. Electronically Signed By: Rubén Plunkett MD 07/14/2025 1:06:17 PM CDT us Von Roth MD CV ECHO PROCEDURES Final R esult * Hepatitis C antibody (06/03/2018 12:05 AM CDT) Hep C Ab Negative Negative [facility] Blood specimen (specimen) 06/03/2018 12:05 AM CDT 06/03/2018 12:28 AM CDT Narrative EDDIE GENAO - 06/03/2018 3:56 AM CDT us Rylan Oakley MD LAB MICROBIOLOGY - GENERAL ORDER JOSHUA Final Result EDDIE [address] [facility] Department [place] [address] from Last 3 Months or Most Recently Relevant to Health Maintenance Insurance [employer] MED[employer]ARE GOLD [employer] [place] [employer] MED[employer]ARE GOLD Advance Directives For more information, please contact: [phone] * Full Code (Latest Code Status on File) Date Activated Date Inactivated Comments 06/09/2018 10:33 AM 06/09/2018 6:21 PM Care Teams Ground Water Pump Installer Relationship Specialty Start Date End Date Von Roth MD [address] [facility] [place] [address] PCP - General Internal Medicine 05/18/18
--- OUTSIDE RECORDS SUMMARY | 2025-08-09 12:41 | XMS_ITS | Patient Health Record ---
Author Organization [facility] [employer] Address [address] [facility] [address] [place] [address] Care Team Providers Care Motor Operator Name Role Phone Pola Rios Unavailable [phone] Allergies Allergen (clinical drug ingredient) Drug/Non Drug Allergy documented on EMR Reaction Allergy Type Onset Date Status penicillin V PENICILLIN V (uncoded) Unknown Allergy 02/2023 Active Substance with 6-nqwqbei-3-methylgluta ryl-coenzyme A reductase inhibitor mechanism of action (substance) RHWOTCL-[id number]-UYY REDUCTASE INHIBITORS (uncoded) Unknown Allergy 03/20/2023 Active [...] 20 MG Tablet TAKE 1 TABLET BY [facility] ONCE DAILY Oral; Duration: 30 Days Active [...] Risk Notes Problem Moderate recurrent major depression (02101436) Major depressive disorder, recurrent, moderate (F33.1) 03/26/20 24 Active confirmed Problem Generalized anxiety disorder (66922878) Generalized anxiety disorder (F41.1) 03/26/20 24 Active confirmed Problem Essential hypertension (35213664) Essential (primary) hypertension (I10) 03/26/20 24 Active confirmed Problem Generalized anxiety disorder (23333256) KYLE (generalized anxiety disorder) (F41.1) Active confirmed Problem Memory impairment (129751668) Memory impairment (R41.3) Active confirmed Problem Chronic kidney disease stage 3 (disorder) (673931876) Stage 3 chronic kidney disease (N18.30) 07/02/20 18 Active confirmed Problem Cardiomyopathy associated with another disorder (575950343) NICM (nonischemic cardiomyopathy) (CMS/HCC) (I42.8) 07/02/20 18 Active confirmed Vital Signs Heart Rate 116 /min 06/29/2025 Height-cm 180.34 cm 06/29/2025 Blood pressure diastolic 81 mm Hg 06/29/2025 Weight-kg 107.05 kg 06/29/2025 Height 71.00 in 06/29/2025 Blood pressure systolic 115 mm Hg 06/29/2025 Weight 236 lbs 06/29/2025 BMI 32.91 kg/m2 06/29/2025 Encounters Encounter Location Date Provider Diagnosis [facility] [employer] [place] [id number] [facility] [address] [facility] [address] [place] [address] 12/27/2024 [place] Essential (primary) hypertension I10 ; Major depressive disorder, recurrent, moderate F33.1 ; NICM (nonischemic cardiomyopathy) (CMS/HCC) I42.8 ; Stage 3 chronic kidney disease N18.30 ; Generalized anxiety disorder F41.1 ; Benign essential HTN I10 ; Memory impairment R41.3 and KYLE (generalized anxiety disorder) F41.1 [facility] [employer] [address] [facility] [address] [place] [address] 01/14/2025 [place] Memory impairment R4 1.3 [facility] [employer] [address] [facility] [address] [place] [address] 03/28/2025 [place] Major depressive disorder, recurrent, [...] Z13.6 and Dietary counseling and surveillance Z71.3 [facility] [employer] [place] [address] [facility] [address] [facility] [address] [place] [address] 06/29/2025 [place] Major depressive disorder, recurrent, moderate F33.1 ; Generalized anxiety disorder F41.1 ; NICM (nonischemic cardiomyopathy) (CMS/HCC) I42.8 ; Essential (primary) hypertension I10 and Stage 3 chronic kidney disease N18.30 Assessments Encounter Date Diagnosis (ICD Code) Assessment Notes Treatment Notes Treatment Clinical Notes Section Notes 12/27/2024 Essential (primary) hypertension (ICD-10 - I10) 06/29/2025 Major depressive disorder, recurrent, moderate (ICD-10 [...] - Schedule next follow-up in six months. 03/28/2025 Major depressive disorder, recurrent, moderate (ICD-10 - F33.1) : 01/14/2025[place]: [facility] Clinical Report for Stanford Franco, dated 01/14/2025, [...] (ICD-10 - F41.1) : 01/14/2025[place]: [facility] Clinical Report for Stanford Franco, dated [...] of subjective cognitive decline; Test Score: 1.63 01/14/2025 Memory impairment (ICD-10 - R41.3) Based on the provided assessment results for the 69-year-old patient, here is a summary and interpretation of cognitive performance: Cummings Scores and Interpretation: [facility] ([facility] Mental Status Examination): Score: 21 This score [...] disorder but does show some functional difficulties. [facility] Cognitive Domain Performance: Memory (Visuospatial Working Memory, [...] physical exercise) to maintain cognitive function. 03/28/2025 NICM (nonischemic cardiomyopathy) (CMS/HCC) (ICD-10 - I42.8) : 01/14/2025[place]: [facility] Clinical Report for Stanford Franco, dated 01/14/2025, [...] subjective cognitive decline; Test Score: 1.63 12/27/2024 NICM (nonischemic cardiomyopathy) (CMS/HCC) (ICD-10 - I42.8) 06/29/2025 Generalized anxiety disorder (ICD-10 - F41.1) 12/27/2024 Major depressive disorder, recurrent, moderate (ICD-10 - F33.1) 12/27/2024 Stage 3 chronic kidney disease (ICD-10 - N18.30) 06/29/2025 NICM (nonischemic cardiomyopathy) (CMS/HCC) (ICD-10 - I42.8) 03/28/2025 Essential (primary) hypertension (ICD-10 - I10) : 01/14/2025[place]: [facility] Clinical Report for Stanford Franco, dated 01/14/2025, [...] subjective cognitive decline; Test Score: 1.63 03/28/2025 Stage 3 chronic kidney disease (ICD-10 - N18.30) : 01/14/2025[place]: [facility] Clinical Report for Stanford Franco, dated 01/14/2025, [...] subjective cognitive decline; Test Score: 1.63 06/29/2025 Essential (primary) hypertension (ICD-10 - I10) 12/27/2024 Generalized anxiety disorder (ICD-10 - F41.1) 06/29/2025 Stage 3 chronic kidney disease (ICD-10 - N18.30) 12/27/2024 Benign essential HTN (ICD-10 - I10) 03/28/2025 Negative depression screening (ICD-10 - Z13.31) : 01/14/2025[place]: [facility] Clinical Report for Stanford Franco, dated 01/14/2025, [...] subjective cognitive decline; Test Score: 1.63 03/28/2025 Benign essential HTN (ICD-10 - I10) : 01/14/2025[place]: [facility] Clinical Report for Stanford Franco, dated 01/14/2025, [...] 12/27/2024 Memory impairment (ICD-10 - R41.3) 03/28/2025 Memory impairment (ICD-10 - R41.3) : 01/14/2025[place]: [facility] Clinical Report for Stanford Franco, dated 01/14/2025, [...] (ICD-10 - F41.1) : 01/14/2025[place]: [facility] Clinical Report for Stanford Franco, dated [...] 01/14/2025[place]: [facility] Clinical Report for Stanford Franco, dated 01/14/2025, [...] (ICD-10 - Z71.3) : 01/14/2025[place]: [facility] Clinical Report for Stanford Franco, dated 01/14/2025, [...] are costly. Procedure to be done at [place], no specific date yet. - Plan: - Monitor patient's progress and follow up on the procedure outcome. - Encourage patient to maintain regular appointments with their equipment maintenance supervisor. Essential Hypertension - Assessment: No specific complaints [...] Assessment: Patient's prescriptions will be sent to [facility]. - Plan: - Ensure patient has an [...] ensure accuracy, there may be errors, including tank cooper inaccuracies and misspellings of medication names. This document should not be considered a verbatim record, and any discrepancies should be verified with the provider. : 01/14/2025[place]: [facility] Clinical Report for Stanford Franco, dated 01/14/2025, [...] 11:00:00 AM, [address], [facility] [address], [place], [address], Provider Name:Pola Rios , 12/29/2025 11:15:00 AM, [address], [address], [place], [address], Insurance Providers Payer Name Payer Address Payer Phone Subscriber Number Group Number Insured Name Patient Relationship to Insured Coverage Start Date Coverage End Date [employer] o [address] [place] [address] [id number] STANFORD WEISS Self - patient is the insured Medical (General) History Medical History History ICD Code Problems: Atrial fibrillation Essential hypertension Generalized anxiety disorder Moderate recurrent major depression Morbid obesity , Major depressive disorder, recurrent, mo derate Surgical History Surgery Date(Month/Year) Heart surgery Any surgical history Tonsilectomy/adenoids
--- OUTSIDE RECORDS SUMMARY | 2025-08-09 12:41 | XMS_ITS | Encounter Summary ---
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
--- OUTSIDE RECORDS SUMMARY | 2025-08-09 12:41 | XMS_ITS | Encounter Summary ---
Author Organization [facility] Healthcare Address [address] [place] [address] Care Team Providers Care Professor Of Languages Name Role Phone Demetrius Hairston MD Primary Care Provider [phone] Encounter Details Date Type Department Care Team (Late st Contact Info) Description 01/18/2025 Cardiology Conference [facility] Non-invasive Cardiac Diagnostic Testing [address] [place] [address] Jesus De La O, FARIDA Social History Tobacco Use Types Packs/Day Years Used Date Smoking Tobacco: Former Cigarettes Q uit: 08/21/1982 Smokeless Tobacco: Never Alcohol Use Standard Drinks/Week Comments Yes 8 (1 standard drink = 0.6 oz pur e alcohol) Sex and Gender Information Value Date Recorded Sex Assigned at Not on file 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
--- OUTSIDE RECORDS SUMMARY | 2025-08-09 12:41 | XMS_ITS | Clinical Summary ---
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 Gender Identity Not on file Sexual Orientation Not on file Plan of Treatment Health Maintenance Due Date Last Done Comments Colorectal Cancer Screening Colonoscopy (10 Years) 1955 Hepatitis C 1973 DTaP, Tdap and Td Vaccines ( 1 - Tdap) 1974 Pneumococcal Vaccine: 50+ Ye ars (1 of 1 - PCV) 2005 Zoster Vaccines (1 of 2) 2005 COVID-19 Vaccine (1 - 2023-2 5 season) 2025 RSV Immunization or 60+ Years (1 - 1-dose 75+ series) 2030 Meningococcal B Vaccine Aged Out No l onger eligible based on patient's age to complete this topic Meningococcal Vaccine Aged Out No mack beatriz eligible based on patient's age to complete this topic RSV Immunizations Under 20 Months Aged Out No longer eligible based on patient's age to complete this topic Insurance [facility] Care Teams Ground Products Director Relationship Specialty Start Date End Date Demetrius Hairston MD [address] [facility] [place] [address] PCP - General INTERNAL MEDICINE 12/16/19
--- OUTSIDE RECORDS SUMMARY | 2025-08-09 12:41 | XMS_ITS | Encounter Summary ---
Author Organization [facility] Healthcare Address [address] [place] [address] Care Team Providers Care Registered Client Associate Name Role Phone Demetrius Hairston MD Primary Care Provider [phone] Encounter Details Date Type Department Care Team (Late st Contact Info) Description 06/02/[address] [address] Vignesh Anton RN Social History Tobacco Use Types Packs/Day Years Used Date Smoking Tobacco: Never Smokeless Tobacco: Never Alcohol Use Standard Drinks/Week Comments Yes 8 (1 standard drink = 0.6 oz pur e alcohol) Sex and Gender Information Value Date Recorded Sex Assigned at Not on file 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
--- NOTE | 2025-08-09 12:56 | ECG_ITS ---
Test Date: 2025-08-09 13:03:40 Measurements Intervals Galliano Rate: 109 P: 0 PA: 0 QRS: 262 QRSD: 158 T: 34 QT: 386 QTc: 520 Interpretive Statements ATRIAL FIBRILLATION WITH RAPID VENTRICULAR RESPONSE WITH ABERRANT CONDUCTION OR VENTRICULAR PREMATURE COMPLEXES RIGHT AXIS DEVIATION [QRS AXIS > 100] RIGHT BUNDLE BRANCH BLOCK [120+ ms QRS DURATION, UPRIGHT V1, 40+ ms S IN I/aVL/V4/V5/V6] POSSIBLE ANTERIOR MYOCARDIAL INFARCTION , OF INDETERMINATE AGE [30 ms Q WAVE IN V3/V4, OR R < 0.2 mV IN V4] INFERIOR MYOCARDIAL INFARCTION , PROBABLY OLD [40+ ms Q WAVE AND/OR ST/T ABNORMALITY IN II/aVF] No previous ECG available for comparison Electronically Signed On 08-09-2025 17:16:04 CDT by Ruthie Montgomery M.D.
[2025-08-09 13:36] LABS: Alanine Aminotransferase 30 U/L (6-50); Albumin Level 4.0 g/dL (3.5-5.1); Alkaline Phosphatase 69 U/L (38-126); Anion Gap 8 mmol/L (4-12); Aspartate Amino Transferase 45 U/L (17-59); Bilirubin,Total 1.5 mg/dL (0.2-1.3); Blood Urea Nitrogen 16 mg/dL (9-20); Calcium 8.9 mg/dL (8.4-10.2); Carbon Dioxide 28 mmol/L (22-30); Chloride 100 mmol/L (98-107); Estimated CRCL calculation 89 ml/min; Estimated Glomerular Filt Rate > 60; Glucose 194 mg/dL (65-110); Potassium 4.2 mmol/L (3.4-5.0); Sodium 136 mmol/L (137-145); Total Protein 7.5 g/dL (6.3-8.2)
[2025-08-09 13:38] LABS: Hematocrit 47.8 % (42.0-52.0); Hemoglobin 15.3 g/dL (14.0-18.0); Immature Granulocyte Percent A 0.4 % (0-0.5); Lymphocytes Absolute Auto 1.41 K/mm3 (0.9-3.2); Mean Corpuscular HGB Conc 32.0 g/dl (32-36); Mean Corpuscular Hemoglobin 32.8 pg (26-34); Mean Corpuscular Volume 102.4 fl (80-100); Nucleated Red Blood Cells Absolute Auto 0.000 K/mm3 (0.0-0.012); Nucleated Red Blood Cells Perc 0.0 % (0.0-0.2); Platelet Count Result 204 k/mm3 (150-375); Red Blood Count 4.67 M/mm3 (4.6-6.20); White Blood Count 8.1 K/mm3 (4.5-10.0)
[2025-08-09 14:39] VITALS: BP 125/104; PULSE 93; RESP 18; O2SAT 99
--- NOTE | 2025-08-09 14:49 | ED_ITS ---
HPI - General Adult General Chief complaint: Shortness of Breath/Dyspnea <Wilma Rios, COMPUTERIZED MILL RECORDER - Last Filed: 08/10/25 19:39> Stated complaint: SOB <Wilma Rios COMPUTERIZED MILL RECORDER - Last Filed: 08/10/25 19:39> Time Seen by Provider: 08/09/25 14:50 <Wilma Mendiola March, COMPUTERIZED MILL RECORDER - Last Filed: 08/10/25 19:39> Focused HPI: Stanford Perez is a 69 y/o male who presents with reports of feeling increased SOB over the past few days, and fatigued and he feels that he cannot walk across a room without getting SOB, denies chest pain, Just got off of his Xarelto a month ago - currently not on any blood thinners. GENERAL: in no acute distress. HEAD: Normocephalic, atraumatic. CHEST: Clear to auscultation. ?No respiratory distress. HEART: Regular rate and rhythm.? NEURO: ?Alert and oriented x3. Patient screened in triage and initial orders placed.? ?Additional care and disposition to be based upon?diagnostic testing and treatment. <Wilma Mendiola March, COMPUTERIZED MILL RECORDER - Last Filed: 08/10/25 19:39> History of Present Illness HPI narrative: Agree with the HPI. Patient had Watchman procedure which is the reason for these are also being discontinued. He reports that he does have a history of paroxysmal AFib that previously he was cardioverted and status post ablation he states this does feel similar to that. He has been having the shortness of breath for about a month but it worsened over the past few days. Denies chest pain. <Miguel Dowd MD - Last Filed: 08/09/25 22:32> Related Data Home medications: Home Medications ?Medication ?Instructions ?Recorded ?Confirmed ?Last Taken ?Type duloxetine 60 mg capsule,delayed 60 mg PO DAILY 08/09/25 08/09/25 History release folic acid 1 mg tablet 1 mg PO DAILY 10/26/1908/0908/09/25 History furosemide 40 mg tablet (Lasix) 20 mg PO DAILY 9 08/09/25 08/09/25 History magnesium oxide 400 mg PO DAILY 10/26/1908/09/25 History atorvastatin 10 mg tablet 10 mg PO DAILY 08/03/2307/1908/09/25 History bupropion HCl 300 mg 24 hr tablet, 300 mg PO HS 08/09/25 08/09/25 History extended release empagliflozin 10 mg tablet 10 mg PO DAILY 08/03/2308/09/25 History (Jardiance) metoprolol tartrate 50 mg tablet 25 mg PO BID 08/03/23 08/09/25 08/09/25 History <Wilma Rios COMPUTERIZED MILL RECORDER - Last Filed: 08/10/25 19:39> Allergies/adverse reactions: Allergies Allergy/AdvReac Type Severity Reaction Status Date / Time Penicillins Allergy Intermediate Anaphylaxis Verified 08/09/25 12:38 Rkizeam-YPJ-NjL Reductase AdvReac Mild Confusion Verified 08/09/25 12:38 Inhibitor (Ozjszwy-Bcm-Wgn Reductase Inhibitor) <Wilma Rios COMPUTERIZED MILL RECORDER - Last Filed: 08/10/25 19:39> Review of Systems 2 Review of Systems: Gen.: Denies fevers or chills Eyes: Denies eye pain or visual change ENT: Denies congestion Respiratory: As per HPI CV: As per HPI GI: Denies abdominal pain nausea, emesis or diarrhea denies burning, urgency, frequency or hematuria Musculoskeletal: Denies back pain or muscle pain Neuro: Denies numbness, tingling, weakness or focal weakness Skin: Denies rash Except as documented, all other systems reviewed and negative <Miguel Dowd MD - Last Filed: 08/09/25 22:32> [facility] Past Medical History Medical History: Medical History Gastritis Abnormal CT scan, liver Diabetes Congestive heart failure (CHF) Ischemic cardiomyopathy Hyperlipidemia Hypertension Atrial fibrillation paroxysmal <Wilma Rios COMPUTERIZED MILL RECORDER - Last Filed: 08/10/25 19:39> Surgical History Surgical History: Surgical History History of back surgery <Wilma Rios APRN - Last Filed: 08/10/25 19:39> Family History Family History: Family History Father Chronic obstructive pulmonary disease Congestive heart failure Lung cancer Mother Congestive heart failure Lung cancer <Wilma Rios COMPUTERIZED MILL RECORDER - Last Filed: 08/10/25 19:39> Social History Social History: Social History Social History: Patient drinks 4 beers a day. Recently cut back since a-fib diagnosis in Oct 2023. Smoking packs per day: 1 Smoking cigarettes per day: 20.0 Years smoked: 20 Smoking pack-years: 20.00 Smoking status: Former smoker Tobacco type: cigarettes Second hand tobacco smoke exposure: No Alcohol intake: current Drinks per week: 20 Substance use: never Substance use type: does not use Do You Feel Safe in your Home?: Yes Lack of Transportation: No Lack of Food: Never True Current Housing: I Have Housing Concerned About Future Housing: No Difficulty Paying Gas/Electric Bills: No Difficulty Paying for Meds: No Currently Unemployed: No Education: Trade/Vocational Certificate Difficulty w/ Childcare or Family Care: No Gender identity (if verbalized by the patient): Male Spiritual care concerns: No <Wilma Rios, COMPUTERIZED MILL RECORDER - Last Filed: 08/10/25 19:39> Exam 2 Narrative: APPEARANCE: No acute distress, nontoxic, resting in bed EYES: EOMI HEENT: Normocephalic, atraumatic, OMM RESPIRATORY: Mildly diminished breath sounds throughout CARDIOVASCULAR: Irregularly irregular without murmurs rubs or gallops. ABDOMINAL: Soft, nontender, nondistended, no rebound or guarding MUSCULOSKELETAl: Moves all extremities. No clubbing, cyanosis or edema. NEURO: Awake and alert. Following commands, speech normal, no focal deficits SKIN:: Warm, dry. No rashes lesions or abrasions PSYCHIATRIC: Normal affect/mood, <Miguel Dowd MD - Last Filed: 08/09/25 22:32> Course Vital Signs Vital signs: Vital Signs Temperature 36.2 C L 08/09/25 12:36 Pulse Rate 87 08/09/25 12:36 Respiratory Rate 16 08/09/25 12:36 Blood Pressure 128/94 H 08/09/25 12:36 Pulse Oximetry 98 08/09/25 12:36 Temperature 36.4 C 08/10/25 14:00 Pulse Rate 109 H 08/10/25 16:04 Respiratory Rate 16 08/10/25 14:00 Blood Pressure 114/91 H 08/10/25 14:00 Pulse Oximetry 96 08/10/25 14:00 Oxygen Delivery Room Air 08/10/25 08:46 <Wilma Rios APRN - Last Filed: 08/10/25 19:39> Vital Signs Temperature 36.2 C L 08/09/25 12:36 Pulse Rate 87 08/09/25 12:36 Respiratory Rate 16 08/09/25 12:36 Blood Pressure 128/94 H 08/09/25 12:36 Pulse Oximetry 98 08/09/25 12:36 Temperature 36.4 C 08/10/25 14:00 Pulse Rate 109 H 08/10/25 16:04 Respiratory Rate 16 08/10/25 14:00 Blood Pressure 114/91 H 08/10/25 14:00 Pulse Oximetry 96 08/10/25 14:00 Oxygen Delivery Room Air 08/10/25 08:46 <Miguel Dowd MD - Last Filed: 08/09/25 22:32> Medical Decision Making MDM Narrative Medical decision making narrative: 69-year-old male who presents to the ED for shortness of breath worse over the past few days. On initial evaluation patient was in no acute distress, afebrile, hemodynamically stable. He did have an irregularly irregular rhythm with rates in the 90s to 130s. Patient did admit that he felt like he was in AFib. He is a former cardioversions and ablations. He currently has a Watchman in place as a month ago. Patient will be given Cardizem for his AFib with RVR. He had slight improvement of his rate to a more controlled 100s but it still jumped to the 120s or so periodically. His troponin was not elevated but was borderline. BNP was also elevated at 4000 but he clinically does not have CHF at this time. Given his symptoms and his increasing troponin, I believe the patient would benefit from admission for further observation management. Patient was discussed with hospitalist who will admit the patient. <Miguel Dowd MD - Last Filed: 08/09/25 22:32> Differential Diagnosis Differential Diagnosis: AFib, ACS, pneumonia, CHF exacerbation <Miguel Dowd MD - Last Filed: 08/09/25 22:32> Medical Records Medical records reviewed: Yes I reviewed the external patient's medical records. <Miguel Dowd MD - Last Filed: 08/09/25 22:32> Vital Signs Vital Signs: Vital Signs Temperature 36.2 C L 08/09/25 12:36 Pulse Rate 87 08/09/25 12:36 Respiratory Rate 16 08/09/25 12:36 Blood Pressure 128/94 H 08/09/25 12:36 Pulse Oximetry 98 08/09/25 12:36 Temperature 36.4 C 08/10/25 14:00 Pulse Rate 109 H 08/10/25 16:04 Respiratory Rate 16 08/10/25 14:00 Blood Pressure 114/91 H 08/10/25 14:00 Pulse Oximetry 96 08/10/25 14:00 Oxygen Delivery Room Air 08/10/25 08:46 <Wilma Rios, COMPUTERIZED MILL RECORDER - Last Filed: 08/10/25 19:39> Vital Signs Temperature 36.2 C L 08/09/25 12:36 Pulse Rate 87 08/09/25 12:36 Respiratory Rate 16 08/09/25 12:36 Blood Pressure 128/94 H 08/09/25 12:36 Pulse Oximetry 98 08/09/25 12:36 Temperature 36.4 C 08/10/25 14:00 Pulse Rate 109 H 08/10/25 16:04 Respiratory Rate 16 08/10/25 14:00 Blood Pressure 114/91 H 08/10/25 14:00 Pulse Oximetry 96 08/10/25 14:00 Oxygen Delivery Room Air 08/10/25 08:46 <Miguel Dowd MD - Last Filed: 08/09/25 22:32> Lab Data Lab results reviewed: Yes I reviewed the patient's lab results. <Miguel Dowd MD - Last Filed: 08/09/25 22:32> Result diagrams: 08/10/25 09:23 08/10/25 09:23 <Wilma Rios COMPUTERIZED MILL RECORDER - Last Filed: 08/10/25 19:39> Labs: Lab Results 08/09/25 08/09/25 Range/Units 13:12 19:43 WBC 8.1 (4.5-10.0) K/mm3 RBC 4.67 (4.6-6.20) M/mm3 Hgb 15.3 D (14.0-18.0) g/dL Hct 47.8 (42.0-52.0) % MCV 102.4 H (80-100) fl MCH 32.8 (26-34) pg MCHC 32.0 (32-36) g/dl RDW 13.8 (11.5-14.5) % Plt Count 204 (150-375) k/mm3 MPV 11.2 H (7.4-10.4) fl Immature Gran % (Auto) 0.4 (0-0.5) % Neut % (Auto) 70.8 (45.5-73.1) % Lymph % (Auto) 17.4 L (18.3-44.2) % [place] % (Auto) 8.0 (2.6-8.5) % Eos % (Auto) 2.2 (0-4.4) % Baso % (Auto) 1.2 (0.2-1.2) % Lymph # (Auto) 1.41 (0.9-3.2) K/mm3 [place] # (Auto) 0.7 H (0.1-0.6) K/mm3 Eos # (Auto) 0.2 (0-0.3) K/mm3 Baso # (Auto) 0.1 (0.0-0.1) K/mm3 Abs Immat Gran (auto) 0.03 (0.00-0.031) K/mm3 Absolute Neuts (auto) 5.7 (1.3-6.7) K/mm3 Absolute Nucleated RBC 0.000 (0.0-0.012) K/mm3 Nucleated RBC % 0.0 (0.0-0.2) % Sodium 136 L (137-145) mmol/L Potassium 4.2 (3.4-5.0) mmol/L Chloride 100 (98-107) mmol/L Carbon Dioxide 28 (22-30) mmol/L Anion Gap 8 (4-12) mmol/L BUN 16 (9-20) mg/dL Creatinine 0.93 (0.7-1.3) mg/dL Estim Creat Clear Calc 89 ml/min Estimated GFR > 60 (59 - ) Glucose 194 H (65-110) mg/dL Calcium 8.9 (8.4-10.2) mg/dL Total Bilirubin 1.5 H (0.2-1.3) mg/dL AST 45 (17-59) U/L ALT 30 (6-50) U/L Alkaline Phosphatase 69 (38-126) U/L Troponin I 0.032 0.033 (0.000-0.034) ng/mL NT-Pro-B Natriuret Pep 4080 H (19.9-100) pg/mL Total Protein 7.5 (6.3-8.2) g/dL Albumin 4.0 (3.5-5.1) g/dL Influenza A (RT-PCR) Negative (Negative) Influenza B (RT-PCR) Negative (Negative) RSV (RT-PCR) Negative (Negative) SARS-CoV-2 RNA (RT-PCR) Negative (Negative) <Wilma Rios, COMPUTERIZED MILL RECORDER - Last Filed: 08/10/25 19:39> Lab Results 08/09/25 08/09/25 Range/Units 13:12 19:43 WBC 8.1 (4.5-10.0) K/mm3 RBC 4.67 (4.6-6.20) M/mm3 Hgb 15.3 D (14.0-18.0) g/dL Hct 47.8 (42.0-52.0) % MCV 102.4 H (80-100) fl MCH 32.8 (26-34) pg MCHC 32.0 (32-36) g/dl RDW 13.8 (11.5-14.5) % Plt Count 204 (150-375) k/mm3 MPV 11.2 H (7.4-10.4) fl Immature Gran % (Auto) 0.4 (0-0.5) % Neut % (Auto) 70.8 (45.5-73.1) % Lymph % (Auto) 17.4 L (18.3-44.2) % [place] % (Auto) 8.0 (2.6-8.5) % Eos % (Auto) 2.2 (0-4.4) % Baso % (Auto) 1.2 (0.2-1.2) % Lymph # (Auto) 1.41 (0.9-3.2) K/mm3 [place] # (Auto) 0.7 H (0.1-0.6) K/mm3 Eos # (Auto) 0.2 (0-0.3) K/mm3 Baso # (Auto) 0.1 (0.0-0.1) K/mm3 Abs Immat Gran (auto) 0.03 (0.00-0.031) K/mm3 Absolute Neuts (auto) 5.7 (1.3-6.7) K/mm3 Absolute Nucleated RBC 0.000 (0.0-0.012) K/mm3 Nucleated RBC % 0.0 (0.0-0.2) % Sodium 136 L (137-145) mmol/L Potassium 4.2 (3.4-5.0) mmol/L Chloride 100 (98-107) mmol/L Carbon Dioxide 28 (22-30) mmol/L Anion Gap 8 (4-12) mmol/L BUN 16 (9-20) mg/dL Creatinine 0.93 (0.7-1.3) mg/dL Estim Creat Clear Calc 89 ml/min Estimated GFR > 60 (59 - ) Glucose 194 H (65-110) mg/dL Calcium 8.9 (8.4-10.2) mg/dL Total Bilirubin 1.5 H (0.2-1.3) mg/dL AST 45 (17-59) U/L ALT 30 (6-50) U/L Alkaline Phosphatase 69 (38-126) U/L Troponin I 0.032 0.033 (0.000-0.034) ng/mL NT-Pro-B Natriuret Pep 4080 H (19.9-100) pg/mL Total Protein 7.5 (6.3-8.2) g/dL Albumin 4.0 (3.5-5.1) g/dL Influenza A (RT-PCR) Negative (Negative) Influenza B (RT-PCR) Negative (Negative) RSV (RT-PCR) Negative (Negative) SARS-CoV-2 RNA (RT-PCR) Negative (Negative) <Miguel Dowd MD - Last Filed: 08/09/25 22:32> Imaging Data Attestation: I personally reviewed and interpreted this imaging study as follows: (I reviewed the radiologist's interpretations) <Miguel Dowd MD - Last Filed: 08/09/25 22:32> Radiologist's impression: Impressions Chest X-Ray 08/09/25 13:46 IMPRESSION: 1: NO ACUTE CARDIOPULMONARY DISEASE. <Miguel Dowd MD - Last Filed: 08/09/25 22:32> ECG Data EKG #1: Attestation: I personally reviewed and interpreted this ECG as follows: <Miguel Dowd MD - Last Filed: 08/09/25 22:32> ECG completion date: 08/09/25 <Miguel Dowd MD - Last Filed: 08/09/25 22:32> ECG completion time: 13:03 <Miguel Dowd MD - Last Filed: 08/09/25 22:32> Interpretation: AFib with RVR rate of 109, right axis deviation, right bundle-branch block, Q-waves in anterior and inferior leads no acute ST or T-wave changes < Miguel Dowd MD - Last Filed: 08/09/25 22:32> EKG #2: Attestation: I personally reviewed and interpreted this ECG as follows: <Miguel Dowd MD - Last Filed: 08/09/25 22:32> ECG completion date: 08/09/25 <Miguel Dowd MD - Last Filed: 08/09/25 22:32> ECG completion time: 19:10 <Miguel Dowd MD - Last Filed: 08/09/25 22:32> Interpretation: AFib with RVR rate of 12 and right axis deviation and right bundle branch block, Q-waves in anterior and inferior leads, no acute ST or T-wave changes. No significant change from previous <Miguel Dowd MD - Last Filed: 08/09/25 22:32> Discharge Plan Discharge Clinical Impression: Atrial fibrillation with RVR <Wilma Rios APRN - Last Filed: 08/10/25 19:39> Patient Disposition: Still a Patient <Wilma Rios APRN - Last Filed: 08/10/25 19:39> Condition: Stable <Wilma Rios APRN - Last Filed: 08/10/25 19:39>
--- OUTSIDE RECORDS SUMMARY | 2025-08-09 14:57 | XMS_ITS | Encounter Summary ---
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
--- OUTSIDE RECORDS SUMMARY | 2025-08-09 14:57 | XMS_ITS | Encounter Summary ---
Author Organization [facility] Healthcare Address [address] [place] [address] Care Team Providers Care Photo Print Specialist Name Role Phone Demetrius Hairston MD Primary Care Provider [phone]- [phone] Encounter Details Date Type Department Care Team (Late st Contact Info) Description 06/02/[address] [address] Vignesh Anton RN Social History Tobacco Use Types Packs/Day Years Used Date Smoking Tobacco: Never Smokeless Tobacco: Never Alcohol Use Standard Drinks/Week Comments Yes 8 (1 standard drink = 0.6 oz pur e alcohol) Sex and Gender Information Value Date Recorded Sex Assigned at Not on file 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
--- OUTSIDE RECORDS SUMMARY | 2025-08-09 14:57 | XMS_ITS | Clinical Summary ---
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 Care Teams Test Clerk Relationship Specialty Start Date End Date Demetrius Hairston MD [address] [facility] [place] [address] PCP - General INTERNAL MEDICINE 12/16/19
--- OUTSIDE RECORDS SUMMARY | 2025-08-09 14:57 | XMS_ITS | Clinical Summary ---
Author Organization [facility] [address] Address [address] [place] [address] Care Team Providers Care Health And Wellness Advisor Name Role Phone Von Roth MD Primary Care Provider [phone]- [phone] Allergies Active Allergy Reactions Criticality Noted Date Comments Cefuroxime Swelling Medium 12/21/2018 Lips swelled Penicillins Swollen tongue High 06/02/2018 Zwicarq-Mrj-Tjh Reductase Inhibitors Mental status changes High 07/02/2018 [...] (06/08/2018): Added automatically from request for surgery [id number] PAF (paroxysmal atrial fibrillation) Resolved Problems Problem Noted Date Diagnosed Date Resolved Date RU (obstructive sleep apnea) 03/14/2022 01/27/2025 Chronic anticoagulation 03/01/202104/18 Encounters Date Type Department Care Team Description 07/14/2025 9:15 AM CDT Ancillary Procedure [facility] Cardiology [address] [place] [phone] MCCANN (dyspnea on exertion) 06/02/2025 Telephone [facility] Cardiology [address] [place] [phone] Rubén Plunkett MD 05/12/2025 10:15 AM CDT Office Visit [facility] Cardiology [address] [place] [address] Rubén Plunkett MD Chronic systolic heart failure (HCC) (Primary Dx); NICM (nonischemic cardiomyopathy) (HCC); PAF (paroxysmal atrial fibrillation) (HCC); Pulmonary hypertension (HCC) from Last 3 Months Surgical History Surgery Date Site/Laterality Comments BACK SURGERY lumbar SHOULDER SURGERY rotator cuff KNEE ARTHROSCOPY W/ LATERAL RELEASE 2010 VASECTOMY 1984 COLONOSCOPY ESOPHAGOGASTRODUODENOSCOPY IMPLANTABLE CARDIAC DEVICE 02/03/2025 N/A Procedure: PERC EULOGIO CLOSE W/IMPLANT [id number]; Surgeon: Anthony Leslie MD; Location: CARDIAC RENAL MEDICINE PHYSICIAN; Service: Cardiovascular; Laterality: N/A; Medical devices from [...] on file 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 Gender Identity Male 08/30/2021 10:22 AM CDT [...] 12/12/2023, 10/16/2023 Medical Devices Implanted Type Area Art Framing Manager Device Identifier Shelf Expiration Date Model / Serial / Lot [employer] System Closure Repair Femoral Artery Suture Mediated Perclose Prostyle 07740-63 - [id number] Implanted:Qty: 1 on 02/03/2025 by Anthony Leslie MD at [facility] [employer] 11/16/2026 [id number] / / [id number] [employer] System Closure Repair Femoral Artery Suture Mediated Perclose Prostyle 04353-88 - [id number] Implanted:Qty: 1 on 02/03/2025 by Anthony Leslie MD at [facility] [employer] 11/16/2026 [id number] / / [id number] [employer] Occluder Cvasc Eulogio Flexible Braided Amplatzer Amulet 31mm Nitinol [id number] - [id number] Implanted:Qty: 1 on 02/03/2025 by Anthony Leslie MD at [facility] [employer] 02/15/2028 [id number] Procedures Procedure Name Priority Date/Time Associated Diagnosis [...] AM CDT Narrative 07/14/2025 1:06 PM CDT [facility] Cardiology [address] [facility] [place] [address] [place] [id number] [address] [place] [address], [place] [address] P:[phone] P:[phone] Echocardiographic Report Patient Name: ALLEN PABON M : 1955 Study Date: 07/14/2025 9:29:07 AM Sex: M Antique Furniture Restorer: Hanna Gordon (Suzanne)(CT), [facility] Location: [place] Ref Provider: VON ROTH Height(Cm): 183 BSA: [...] FINDINGS: Interpretation Site: Exam was interpreted at [facility]. Left Ventricle: Definity contrast agent used to [...] Procedure Note Rubén Plunkett MD - 07/14/2025 [facility] Cardiology [address] [facility] [address], [place] [address] [address], [place] [address] P:[phone] P:[phone] Echocardiographic Report Patient Name: ALLEN PABON M : 1955 Study Date: 07/14/2025 9:29:07 AM Sex: M Antique Furniture Restorer: Hanna Mccollum)(CT), [facility] Location: [facility] Provider: VON ROTH Height(Cm): 183 BSA: 2.33 [...] FINDINGS: Interpretation Site: Exam was interpreted at [facility]. Left Ventricle: Definity contrast agent used to [...] AM CDT) Hep C Ab Negative Negative [facility] Blood specimen (specimen) 06/03/2018 12:05 AM CDT 06/03/2018 12:28 AM CDT Narrative EDDIE GENAO - 06/03/2018 3:56 AM CDT us Rylna Oakley MD LAB MICROBIOLOGY - GENERAL ORDER JOSHUA Final Result EDDIE [address] [facility] Department [place] [address] from Last 3 Months or Most Recently Relevant to Health Maintenance Insurance [employer] MEDICARE [place]OLD [place] A[employer] MED[employer]ARE GOLD Advance Directives For more information, please contact: [phone] * Full Code (Latest Code Status on File) Date Activated Date Inactivated Comments 06/09/2018 10:33 AM 06/09/2018 6:21 PM Care Teams Health And Wellness Advisor Relationship Specialty Start Date End Date Von Roth MD [address] [facility] [address] PCP - General Internal Medicine 05/18/18
--- OUTSIDE RECORDS SUMMARY | 2025-08-09 14:57 | XMS_ITS | Encounter Summary ---
Author Organization [facility] Healthcare Address [address] [place] [address] Care Team Providers Care Pulley Mortiser Operator Name Role Phone Demetrius Hairston MD Primary Care Provider [phone]- [phone] Encounter Details Date Type Department Care Team (Late st Contact Info) Description 01/18/2025 Cardiology Conference [facility] Non-invasive Cardiac Diagnostic Testing [address] [place] [address] Jesus De La O, FARIDA Social History Tobacco Use Types Packs/Day Years Used Date Smoking Tobacco: Former Cigarettes Q uit: 08/21/1982 Smokeless Tobacco: Never Alcohol Use Standard Drinks/Week Comments Yes 8 (1 standard drink = 0.6 oz pur e alcohol) Sex and Gender Information Value Date Recorded Sex Assigned at Not on file 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
[2025-08-09 15:24] LABS: NT Pro B Type Natriuretic Pept 4080 pg/mL (19.9-100)
[2025-08-09 18:31] VITALS: O2SAT 99
[2025-08-09 18:34] VITALS: PULSE 102
--- NOTE | 2025-08-09 18:53 | ECG_ITS ---
Test Date: 2025-08-09 19:10:14 Measurements Intervals [place] Rate: 112 P: 0 NE: 0 QRS: 268 QRSD: 144 T: 17 QT: 385 QTc: 526 Interpretive Statements ATRIAL FIBRILLATION WITH RAPID VENTRICULAR RESPONSE MARKED RIGHT AXIS DEVIATION [QRS AXIS > 100] RIGHT BUNDLE BRANCH BLOCK [120+ ms QRS DURATION, UPRIGHT V1, 40+ ms S IN I/aVL/V4/V5/V6] INFERIOR MYOCARDIAL INFARCTION , PROBABLY OLD [40+ ms Q WAVE AND/OR ST/T ABNORMALITY IN II/aVF] ABNORMAL ECG Compared to ECG 08/09/2025 13:03:40 No significant changes Electronically Signed On 08-10-2025 07:28:00 CDT by Daniel Sen M.D.
[2025-08-09 19:16] LABS: Troponin I 0.032 ng/mL (0.000-0.034)
[2025-08-09] MEDS: SODIUM CHLORIDE 0.9% IV 500 ML 999 ML IV CONT (19:43)
[2025-08-09 20:10] LABS: Troponin I 0.033 ng/mL (0.000-0.034)
[2025-08-09 20:23] LABS: Influenza A QL RT-PCR Negative (Negative); Influenza B QL RT-PCR Negative (Negative); RSV RNA, RT-PCR Negative (Negative); SARS-CoV-2 RNA PCR Negative (Negative)
[2025-08-09 22:45] VITALS: BP 121/72; PULSE 118; RESP 16; TEMP 36.5; O2SAT 99
[2025-08-09 22:54] VITALS: BMI 32.3
[2025-08-10] VITALS (11 sets, daily range): BP systolic 114–130; BP diastolic 87–91; PULSE 70–130; RESP 16; TEMP 36.1–36.6; O2SAT 92–97
--- NOTE | 2025-08-10 05:28 | PM.IMHP ---
H&P: HPI History of Present Illness Date/Time: 08/10/25 05:28 Chief Complaint: Shortness of breath Narrative: 69-year-old male with history of anemia, cirrhosis, diastolic CHF, paroxysmal atrial fibrillation status post left atrial appendage occlusion device, diabetes mellitus without current long-term use of insulin, presents for shortness of breath. This is been going on for a few days, feels as he views fatigue. Has also felt palpitations. In the ER he is found to be in AFib with rate into the 130s. Saturating well on room air. He was given diltiazem 20 mg IV x1. His RVR improved, shortness of breath resolved and patient was resting comfortably thereafter. His elevated BNP but is not appear to be in clinical overload. Troponin 0.032, 0.033. Cardiology consulted. Review of Systems Review of Systems: All systems reviewed & are unremarkable except as noted in HPI and below (Subjective) PMFSH Past Medical History Medical History Gastritis Abnormal CT scan, liver Diabetes Congestive heart failure (CHF) Ischemic cardiomyopathy Hyperlipidemia Hypertension Atrial fibrillation paroxysmal Surgical History Surgical History History of back surgery Family History Family History Father Chronic obstructive pulmonary disease Congestive heart failure Lung cancer Mother Congestive heart failure Lung cancer Social History Social History Social History: Patient drinks 4 beers a day. Recently cut back since a-fib diagnosis in Oct 2023. Smoking packs per day: 1 Smoking cigarettes per day: 20.0 Years smoked: 20 Smoking pack-years: 20.00 Smoking status: Former smoker Tobacco type: cigarettes Second hand tobacco smoke exposure: No Alcohol intake: current Drinks per week: 20 Substance use: never Substance use type: does not use Do You Feel Safe in your Home?: Yes Lack of Transportation: No Lack of Food: Never True Current Housing: I Have Housing Concerned About Future Housing: No Difficulty Paying Gas/Electric Bills: No Difficulty Paying for Meds: No Currently Unemployed: No Education: Trade/Vocational Certificate Difficulty w/ Childcare or Family Care: No Gender identity (if verbalized by the patient): Male Spiritual care concerns: No Meds Home Medications and Allergies Home Medications ?Medication ?Instructions ?Recorded ?Confirmed ?Type duloxetine 60 mg capsule,delayed 60 mg PO DAILY 10/26/19 08/09/25 History release folic acid 1 mg tablet 1 mg PO DAILY 10/26/19 08/09/25 History furosemide 40 mg tablet (Lasix) 20 mg PO DAILY 10/26/19 08/09/25 History magnesium oxide 400 mg PO DAILY 10/26/19 08/09/25 History atorvastatin 10 mg tablet 10 mg PO DAILY 08/03/23 08/09/25 History bupropion HCl 300 mg 24 hr tablet, 300 mg PO HS 08/03/23 08/09/25 History extended release empagliflozin 10 mg tablet 10 mg PO DAILY 08/03/23 08/09/25 History (Jardiance) metoprolol tartrate 50 mg tablet 25 mg PO BID 08/03/23 08/09/25 History cyanocobalamin (vitamin B-12) 1,000 mcg PO QAM #30 tabs 03/03/24 08/09/25 Rx 1,000 mcg tablet (Vitamin B-12) Allergies Allergy/AdvReac Type Severity Reaction Status Date / Time Penicillins Allergy Intermediate Anaphylaxis Verified 08/09/25 12:38 Thzqcfx-EBL-AdY Reductase AdvReac Mild Confusion Verified 08/09/25 12:38 Inhibitor (Miamots-Yai-Ugf Reductase Inhibitor) Vital Signs Vital Signs - 24 hr 08/09/25 12:36 08/09/25 14:39 08/09/25 18:31 Temperature 97.2 F L Pulse Rate 87 93 Respiratory Rate 16 18 Blood Pressure 128/94 H 125/104 H Pulse Oximetry 98 99 99 Oxygen Delivery Room Air 08/09/25 18:34 08/09/25 22:45 08/10/25 04:00 Temperature 97.7 F Pulse Rate 102 H 118 H 122 H Respiratory Rate 16 Blood Pressure 121/72 Pulse Oximetry 99 Oxygen Delivery Exam Const: General: comfortable and no acute distress Eyes: Pupils: Equal, round and reactive pupils present Neck: Neck: supple Resp: Effort & Inspection: normal respiratory effort Auscultation: clear to auscultation bilaterally Cardio: Rate: regular rate Rhythm: abnormal rhythm GI: Inspection: non-distended GI Palp: Yes Soft to palpation Neuro: Motor exam (neuro): 5/5 motor strength present throughout Extrem: General: no edema H&P: Results Labs Labs: Short CBC 08/09/25 Range/Units 13:12 WBC 8.1 (4.5-10.0) K/mm3 Hgb 15.3 D (14.0-18.0) g/dL Hct 47.8 (42.0-52.0) % Plt Count 204 (150-375) k/mm3 BMP 08/09/25 13:12 Sodium 136 L Potassium 4.2 Chloride 100 Carbon Dioxide 28 BUN 16 Creatinine 0.93 Glucose 194 H Calcium 8.9 Cardiac Enzymes 08/09/25 08/09/25 Range/Units 13:12 19:43 Troponin I 0.032 0.033 (0.000-0.034) ng/mL Liver Function 08/09/25 Range/Units 13:12 Total Bilirubin 1.5 H (0.2-1.3) mg/dL AST 45 (17-59) U/L ALT 30 (6-50) U/L Alkaline Phosphatase 69 (38-126) U/L Albumin 4.0 (3.5-5.1) g/dL Assessment and Plan Assessment and plan (1) Congestive heart failure (CHF): Code(s): I50.9 - Heart failure, unspecified Status: Acute (2) Atrial fibrillation with RVR: Code(s): I48.91 - Unspecified atrial fibrillation Status: Acute Plan 69-year-old male with history of anemia, cirrhosis, diastolic CHF, paroxysmal atrial fibrillation status post left atrial appendage occlusion device, diabetes mellitus without current long-term use of insulin, presents for shortness of breath. This is been going on for a few days, feels as he views fatigue. Has also felt palpitations. In the ER he is found to be in AFib with rate into the 130s. Saturating well on room air. He was given diltiazem 20 mg IV x1. His RVR improved, shortness of breath resolved and patient was resting comfortably thereafter. His elevated BNP but is not appear to be in clinical overload. Troponin 0.032, 0.033. Heparin GTT started. Cardiology consulted. ----- Denies cough. Saturating 99% on room air. Heart rate improved. Chest x-ray without acute abnormalities. Suspect is shortness of breath was due to AFib with RVR. Cardiology consultation. Admit to medicine floor telemetry. Received diltiazem 20 mg IV x1. 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 b.i.d.. He may require an increased dose based on his telemetry documentation overnight. Monitor symptomatology and SpO2 on room air. Full code. Heart healthy diet. Saline lock IV. Accu-Cheks a.c. HS with low-dose insulin sliding scale and hypoglycemia protocol. General medical floor with telemetry. Hospitalist [facility] Advance Care Plan I have confirmed that the patient's Advanced Care Plan is present, code status is documented, or surrogate decision maker is listed in patient medical record.: Yes Medication Reconciliation I have utilized all available resources to obtain, update and review the patients current medications (includes all prescriptions, OTC, herbals, cannabis, and nutritional supplements).: Yes
--- NOTE | 2025-08-10 07:10 | PM.IMPN ---
Progress Note: A&P Assessment and Plan (1) Atrial fibrillation with RVR: Code(s): I48.91 - Unspecified atrial fibrillation Status: Acute Assessment and Plan: Keep serum potassium >4 and keep magnesium >2 Received diltiazem 20 mg IV x1 Lovenox dvt prophylaxis Consult Cardiology for further management, appreciate assistance and recommendations Increase metoprolol from 25 mg to 50 mg daily If rate control continues to be poor, consider antiarrhythmic therapy with amiodarone Will eventually need OP EP evaluation for management of AFib (2) Shortness of breath: Code(s): R06.02 - Shortness of breath Status: Acute Assessment and Plan: See above Likely secondary to underlying AFib with RVR Chest x-ray not indicative of any acute cardiopulmonary process Troponin within normal limits. BNP 4080, but does not appear to be fluid overloaded on exam (3) Congestive heart failure (CHF): Code(s): I50.9 - Heart failure, unspecified Status: Acute Assessment and Plan: Symptoms: Shortness of breath Current medications: Jardiance Supportive treatment BNP: 4080 EKG: AFib with RVR Chest XR: No acute cardiopulmonary disease Echo: EF of 30% per recent echo 06/2025 Monitor vital signs, I&Os, BUN/creatinine, daily weights, neuro status and patient is a fall risk Monitor serum electrolytes, Keep serum Potassium>4 and serum Magnesium>2 and CBC Per cardiology recommendations Continue Metoprolol, Jardiance and Lasix Can consider ARNI on OP basis (4) Hypertension: Code(s): I10 - Essential (primary) hypertension Status: Acute Assessment and Plan: Patient's blood pressure was reviewed on 08/10 Blood pressure remains well controlled Will continue current medications Subjective Date/time seen: 08/10/25 07:10 Interval history: 69-year-old male with history of anemia, cirrhosis, diastolic CHF, paroxysmal atrial fibrillation status post left atrial appendage occlusion device, diabetes mellitus without current long-term use of insulin, presents for SOB. This is been going on for a few days, feels as he views fatigued & also felt palpitations. 08/10/2025 Patient sitting comfortably in bed at time of examination. Denies any chest pain, shortness of breath, nausea/vomiting, or abdominal pain at this time. Cardiology following, increasing metoprolol from 25 mg to 50 mg. Considering amiodarone if rate control continues to be poor. Review of Systems Review of Systems: All systems reviewed & are unremarkable except as noted in HPI and below (Subjective) Exam Const: General: comfortable and no acute distress Eyes: Pupils: Equal, round and reactive pupils present Neck: Neck: supple Resp: Effort & Inspection: normal respiratory effort Auscultation: clear to auscultation bilaterally Cardio: Rate: tachycardic Rhythm: abnormal rhythm GI: Inspection: non-distended Neuro: Cranial nerves: Yes Equal, round and reactive pupils present Motor exam (neuro): 5/5 motor strength present throughout Extrem: General: no edema Objective Data Vital Signs Vital Signs: Vital Signs - 24 hr 08/09/25 12:36 08/09/25 14:39 08/09/25 18:31 Temperature 97.2 F L Pulse Rate 87 93 Respiratory Rate 16 18 Blood Pressure 128/94 H 125/104 H Pulse Oximetry 98 99 99 Oxygen Delivery Room Air 08/09/25 18:34 08/09/25 22:45 08/09/25 22:45 Temperature 97.7 F 97.7 F Pulse Rate 102 H 118 H 118 H Respiratory Rate 16 16 Blood Pressure 121/72 121/72 Pulse Oximetry 99 99 Oxygen Delivery 08/10/25 04:00 08/10/25 05:31 Temperature 97.9 F Pulse Rate 122 H 120 H Respiratory Rate 16 Blood Pressure 130/88 Pulse Oximetry 97 Oxygen Delivery Intake/Output Intake/Output: Intake & Output 08/07/25 08/08/25 08/09/25 08/10/25 23:59 23:59 23:59 23:59 Intake Total 500 Balance 500 Meds/Results Medications: Active Medications Generic Name Dose Route Start Last Admin Trade Name Freq PRN Reason Stop Dose Admin Atorvastatin Calcium 10 mg 08/10/25 09:00 Atorvastatin 10 Mg Tablet PO DAILY REGINA Bupropion HCl 300 mg 08/10/25 21:00 Bupropion Hcl Xl (24 Hr) 150 Mg Tabcr PO HS REGINA Cyanocobalamin 1,000 mcg 08/10/25 09:00 Cyanocobalamin 1,000 Mcg Tablet PO QAM REGINA Dextrose 12.5 gm 08/10/25 05:35 Dextrose 50% 25 Gm/50 Ml Syringe IV PUSH PRN PRN Hypoglycemia Protocol Duloxetine HCl 60 mg 08/10/25 09:00 Duloxetine Hcl 60 Mg Capsule. PO DAILY [facility] Empagliflozin 10 mg 08/10/25 09:00 Empagliflozin 10 Mg Tablet PO DAILY [facility] Folic Acid 1 mg 08/10/25 09:00 Folic Acid 1 Mg Tablet PO DAILY [facility] Furosemide 20 mg 08/10/25 09:00 Furosemide 20 Mg Tablet PO DAILY [facility] Glucose 15 gm 08/10/25 05:35 Glucose Oral Gel 15 Gm Of Glucse In 37.5 Gm Tube PO PRN PRN Hypoglycemia Protocol Dextrose 1,000 mls @ 100 mls/hr 08/10/25 05:35 Dextrose 5% 1,000 Ml IVPB PRN PRN Hypoglycemia Protocol Insulin Aspart 2 - 5 units 08/10/25 08:00 Insulin Aspart (*Bkc) 100 Units/Ml SUB-Q TIDWM [facility] Protocol Insulin Aspart 1 - 2 units 08/10/25 21:00 Insulin Aspart (*Bkc) 100 Units/Ml SUB-Q HS [facility] Protocol Magnesium Oxide 400 mg 08/10/25 09:00 Magnesium Oxide 400 Mg Tablet PO DAILY [facility] Metoprolol Tartrate 25 mg 08/10/25 09:00 Metoprolol Tartrate 25 Mg Tablet PO Q12HR [facility] Radiology Results: ITS Impressions Chest X-Ray 08/09/25 13:46 IMPRESSION: 1: NO ACUTE CARDIOPULMONARY DISEASE. Labs Labs: Laboratory Results - last 24 hr 08/09/25 08/09/25 13:12 19:43 WBC 8.1 RBC 4.67 Hgb 15.3 D Hct 47.8 MCV 102.4 H MCH 32.8 MCHC 32.0 RDW 13.8 Plt Count 204 MPV 11.2 H Immature Gran % (Auto) 0.4 Neut % (Auto) 70.8 Lymph % (Auto) 17.4 L Randolph % (Auto) 8.0 Eos % (Auto) 2.2 Baso % (Auto) 1.2 Lymph # (Auto) 1.41 Randolph # (Auto) 0.7 H Eos # (Auto) 0.2 Baso # (Auto) 0.1 Abs Immat Gran (auto) 0.03 Absolute Neuts (auto) 5.7 Absolute Nucleated RBC 0.000 Nucleated RBC % 0.0 Sodium 136 L Potassium 4.2 Chloride 100 Carbon Dioxide 28 Anion Gap 8 BUN 16 Creatinine 0.93 Estim Creat Clear Calc 89 Estimated GFR > 60 Glucose 194 H Calcium 8.9 Total Bilirubin 1.5 H AST 45 ALT 30 Alkaline Phosphatase 69 Troponin I 0.032 0.033 NT-Pro-B Natriuret Pep 4080 H Total Protein 7.5 Albumin 4.0 Influenza A (RT-PCR) Negative Influenza B (RT-PCR) Negative RSV (RT-PCR) Negative SARS-CoV-2 RNA (RT-PCR) Negative
--- NOTE | 2025-08-10 08:18 | PM.CNCAR ---
Assessment and Plan Assessment and plan (1) Paroxysmal atrial fibrillation: Code(s): I48.0 - Paroxysmal atrial fibrillation Status: Acute (2) Congestive heart failure (CHF): Code(s): I50.9 - Heart failure, unspecified Status: Acute (3) History of cardiomyopathy: Code(s): Z86.79 - Personal history of other diseases of the circulatory system Status: Acute (4) Hypertension associated with type 2 diabetes mellitus: Code(s): E11.59 - Type 2 diabetes mellitus with other circulatory complications; I15.2 - Hypertension secondary to endocrine disorders Status: Acute (5) Diabetes: Code(s): E11.9 - Type 2 diabetes mellitus without complications Status: Acute (6) Obesity: Code(s): E66.9 - Obesity, unspecified Status: Acute Plan Atrial fibrillation with RVR. Present on admission s/p dose of IV cardizem, rates now in the 120s. This appears to be paroxysmal in nature as patient in NSR in January of this year. On recent echo in June however, it was noted that he was in afib. He is symptomatic with SOB and fatigue. Will attempt to increase Metoprolol from 25 mg BID to 50 mg BID for better rate control. Will check Mag and will need to keep >2. Check TSH as well. If poor rate control can consider antiarryhthmic therapy such as amiodarone. Will benefit from OP EP evaluation for management of his afib. No AC as s/p LAOO in January of this year Shortness of breath. Most likely seconary to his afib with RVR. CXR with no acute cardiopulmonary process and EKG with no acute ischemic changes. Troponin within normal range x 2. Despite elevated pBNP does not appear grossly volume overloaded at this time. Continue with home lasix 20 mg daily CHF/NICMP. EF of 30% per recent echo from office 06/2025. History of LHC in 2018 with minimal CAD. Would continue with GDMT. Continue Metoprolol, Jardiance and lasix. Can consider ARNI on OP basis Hypertension. Controlled. continue present medication regimen Diabetes with chronic kidney disease. Glycemic control per primary team History of ETOH abuse. Denies any recent heavy use Obesity. Weight loss encouraged. Plan: Increase Metoprolol to 50mg BID Check Mag and TSH If reasonable rate control OP EP evaluation Can consider antiarrhythmic therapy with amiodarone if poor response to increased BB dose History of Present Illness History of Present Illness Consult date/time: 08/10/25 08:18 Requesting physician: Denia Leonard MD Consult reason: atrial fibrillation and shortness of breath Reason For Visit: SOB Narrative: Stanford Perez is a 69 y.o. male who follows with Dr. Plunkett in the office. Patient has a PMH of paroxysmal atrial fibrillation, GI bleeding s/p LAOO, NICMP, HTN, RU and CKD. He presented to the hospital with c/o shortness of breath. According to the patient for the last 2 weeks he has felt shortness of breath and fatigue with any activity. He denies any associated chest pain or pressure. No dizziness or feeling light headed. Denies any palpitations. States he has been compliant with all medications. Reports he drank 2 beers a couple days ago, but has not had any heavy ETOH use. No recent illness. He came to the ER at the request of his . In the ER patient noted to be in atrial fibrillation with RVR. He was given IV cardizem and rate slowed. We were asked to see for management of his atrial fibrillation Review of Systems Review of Systems: All systems reviewed & are unremarkable except as noted in HPI and below PMFSH Past Medical History Medical History Gastritis Abnormal CT scan, liver Diabetes Congestive heart failure (CHF) Ischemic cardiomyopathy Hyperlipidemia Hypertension Atrial fibrillation paroxysmal Surgical History Surgical History History of back surgery Family History Family History Father Chronic obstructive pulmonary disease Congestive heart failure Lung cancer Mother Congestive heart failure Lung cancer Social History Social History Social History: Patient drinks 4 beers a day. Recently cut back since a-fib diagnosis in Oct 2023. Smoking packs per day: 1 Smoking cigarettes per day: 20.0 Years smoked: 20 Smoking pack-years: 20.00 Smoking status: Former smoker Tobacco type: cigarettes Second hand tobacco smoke exposure: No Alcohol intake: current Drinks per week: 20 Substance use: never Substance use type: does not use Do You Feel Safe in your Home?: Yes Lack of Transportation: No Lack of Food: Never True Current Housing: I Have Housing Concerned About Future Housing: No Difficulty Paying Gas/Electric Bills: No Difficulty Paying for Meds: No Currently Unemployed: No Education: Trade/Vocational Certificate Difficulty w/ Childcare or Family Care: No Gender identity (if verbalized by the patient): Male Spiritual care concerns: No Meds Home Medications and Allergies Home Medications ?Medication ?Instructions ?Recorded ?Confirmed ?Type duloxetine 60 mg capsule,delayed 60 mg PO DAILY 10/26/19 08/09/25 History release folic acid 1 mg tablet 1 mg PO DAILY 10/26/19 08/09/25 History furosemide 40 mg tablet (Lasix) 20 mg PO DAILY 10/26/19 08/09/25 History magnesium oxide 400 mg PO DAILY 10/26/19 08/09/25 History atorvastatin 10 mg tablet 10 mg PO DAILY 08/03/23 08/09/25 History bupropion HCl 300 mg 24 hr tablet, 300 mg PO HS 08/03/23 08/09/25 History extended release empagliflozin 10 mg tablet 10 mg PO DAILY 08/03/23 08/09/25 History (Jardiance) metoprolol tartrate 50 mg tablet 25 mg PO BID 08/03/23 08/09/25 History cyanocobalamin (vitamin B-12) 1,000 mcg PO QAM #30 tabs 03/03/24 08/09/25 Rx 1,000 mcg tablet (Vitamin B-12) Allergies Allergy/AdvReac Type Severity Reaction Status Date / Time Penicillins Allergy Intermediate Anaphylaxis Verified 08/09/25 12:38 Atbtkgj-XZO-SuQ Reductase AdvReac Mild Confusion Verified 08/09/25 12:38 Inhibitor (Lmudmiv-Tib-Pmp Reductase Inhibitor) Vital Signs Vital Signs - 24 hr 08/09/25 12:36 08/09/25 14:39 08/09/25 18:31 Temperature 36.2 C L Pulse Rate 87 93 Respiratory Rate 16 18 Blood Pressure 128/94 H 125/104 H Pulse Oximetry 98 99 99 Oxygen Delivery Room Air 08/09/25 18:34 08/09/25 22:45 08/09/25 22:45 Temperature 36.5 C 36.5 C Pulse Rate 102 H 118 H 118 H Respiratory Rate 16 16 Blood Pressure 121/72 121/72 Pulse Oximetry 99 99 Oxygen Delivery 08/10/25 04:00 08/10/25 05:31 Temperature 36.6 C Pulse Rate 122 H 120 H Respiratory Rate 16 Blood Pressure 130/88 Pulse Oximetry 97 Oxygen Delivery Exam Const: General: comfortable and no acute distress Eyes: General: appearance normal, both eyes and all related structures Neck: Neck: supple and no JVD Resp: Effort & Inspection: normal respiratory effort Cardio: Other: irreg irreg. no murmurs, rubs or gallops Skin: General skin exam: normal color Neuro: Speech: normal speech Extrem: General: normal to inspection Psych: Mental Status: mental status grossly normal Affect: normal affect Results Labs and Meds 08/09/25 13:12 08/09/25 13:12 Lab results: Cardiac Enzymes 08/09/25 08/09/25 Range/Units 13:12 19:43 AST 45 (17-59) U/L Troponin I 0.032 0.033 (0.000-0.034) ng/mL CBC 08/09/25 Range/Units 13:12 WBC 8.1 (4.5-10.0) K/mm3 RBC 4.67 (4.6-6.20) M/mm3 Hgb 15.3 D (14.0-18.0) g/dL Hct 47.8 (42.0-52.0) % Plt Count 204 (150-375) k/mm3 Lymph # (Auto) 1.41 (0.9-3.2) K/mm3 Morgan # (Auto) 0.7 H (0.1-0.6) K/mm3 Eos # (Auto) 0.2 (0-0.3) K/mm3 Baso # (Auto) 0.1 (0.0-0.1) K/mm3 Comprehensive Metabolic Panel 08/09/25 Range/Units 13:12 Sodium 136 L (137-145) mmol/L Potassium 4.2 (3.4-5.0) mmol/L Chloride 100 (98-107) mmol/L Carbon Dioxide 28 (22-30) mmol/L BUN 16 (9-20) mg/dL Creatinine 0.93 (0.7-1.3) mg/dL Glucose 194 H (65-110) mg/dL Calcium 8.9 (8.4-10.2) mg/dL AST 45 (17-59) U/L ALT 30 (6-50) U/L Alkaline Phosphatase 69 (38-126) U/L Total Protein 7.5 (6.3-8.2) g/dL Albumin 4.0 (3.5-5.1) g/dL Intake and Output 08/09/25 08/10/25 08/10/25 23:59 07:59 15:59 Intake Total 500 Balance 500 Intake: IV 500 Sodium Chloride 0.9% IV 500 ml 500 @ 999 mls/hr IV CONT .Q31M STA Rx#:[id number] Other: # Unmeasured Voids 1 Imaging and Cardiology Echo: report reviewed (07/12/25 EF of 30% with mild LVH, severe global LV systolic dysfunction, diastolic dysfunction, severe LAE, mod SHONDA, moderate MR, mild AR, mild pulmonary HTN with RVSP of 35-40mmHg, mild CT) Cardiac cath: report reviewed (2018-minimal coronary irregularities ) EKG results: image reviewed EKG Interpretation EKG shows: atrial fibrillation (with RVR rate of 112, with RBBB )
--- NOTE | 2025-08-10 08:21 | ECG_ITS ---
Test Date: 2025-08-10 11:26:40 Measurements Intervals [place] Rate: 125 P: 0 UT: 0 QRS: 266 QRSD: 148 T: 58 QT: 375 QTc: 542 Interpretive Statements ATRIAL FIBRILLATION WITH RAPID VENTRICULAR RESPONSE RIGHT AXIS DEVIATION [QRS AXIS > 100] RIGHT BUNDLE BRANCH BLOCK [120+ ms QRS DURATION, UPRIGHT V1, 40+ ms S IN I/aVL/V4/V5/V6] ] INFERIOR MYOCARDIAL INFARCTION , PROBABLY OLD [40+ ms Q WAVE AND/OR ST/T ABNORMALITY IN II/aVF] ABNORMAL ECG Compared to ECG 08/09/2025 19:10:14 No significant changes Electronically Signed On 08-11-2025 12:38:05 CDT by Daniel Sen M.D.
[2025-08-10] MEDS: CYANOCOBALAMIN 1,000 MCG TABLET 1000 MCG PO (08:45)
[2025-08-10] MEDS: FUROSEMIDE 20 MG TABLET PO (08:45)
[2025-08-10] MEDS: EMPAGLIFLOZIN 10 MG TABLET PO (08:45)
[2025-08-10] MEDS: DULoxetine HCL 60 MG CAPSULE.DR PO (08:46)
[2025-08-10] MEDS: ATORVASTATIN 10 MG TABLET PO (08:46)
[2025-08-10] MEDS: MAGNESIUM OXIDE 400 MG TABLET PO (08:46)
[2025-08-10] MEDS: FOLIC ACID 1 MG TABLET PO (08:46)
[2025-08-10] MEDS: METOPROLOL TARTRATE 50 MG TAB PO ×2 (08:46→20:42)
[2025-08-10 09:39] LABS: Hematocrit 46.9 % (42.0-52.0); Hemoglobin 15.1 g/dL (14.0-18.0); Immature Granulocyte Percent A 0.3 % (0-0.5); Lymphocytes Absolute Auto 2.08 K/mm3 (0.9-3.2); Mean Corpuscular HGB Conc 32.2 g/dl (32-36); Mean Corpuscular Hemoglobin 33.1 pg (26-34); Mean Corpuscular Volume 102.9 fl (80-100); Nucleated Red Blood Cells Absolute Auto 0.000 K/mm3 (0.0-0.012); Nucleated Red Blood Cells Perc 0.0 % (0.0-0.2); Platelet Count Result 216 k/mm3 (150-375); Red Blood Count 4.56 M/mm3 (4.6-6.20); White Blood Count 7.2 K/mm3 (4.5-10.0)
[2025-08-10 10:01] LABS: Alanine Aminotransferase 25 U/L (6-50); Albumin Level 3.8 g/dL (3.5-5.1); Alkaline Phosphatase 84 U/L (38-126); Anion Gap 7 mmol/L (4-12); Aspartate Amino Transferase 31 U/L (17-59); Bilirubin,Total 1.3 mg/dL (0.2-1.3); Blood Urea Nitrogen 16 mg/dL (9-20); Calcium 9.2 mg/dL (8.4-10.2); Carbon Dioxide 33 mmol/L (22-30); Chloride 100 mmol/L (98-107); Estimated CRCL calculation 75 ml/min; Estimated Glomerular Filt Rate > 60; Glucose 203 mg/dL (65-110); Magnesium 2.0 mg/dL (1.6-2.3); Potassium 4.5 mmol/L (3.4-5.0); Sodium 140 mmol/L (137-145); Total Protein 7.1 g/dL (6.3-8.2)
[2025-08-10 10:32] LABS: Thyroid Stimulating Hormone Reflex 2.660 uIU/mL (0.465-4.68)
[2025-08-10] MEDS: ENOXAPARIN 40 MG/0.4 ML SYRINGE SUB-Q (11:49)
[2025-08-10] MEDS: buPROPion HCL XL (24 HR) 150 MG TABCR 300 MG PO (20:41)
[2025-08-11] VITALS (12 sets, daily range): BP systolic 101–160; BP diastolic 77–95; PULSE 58–131; RESP 16–18; TEMP 36.4–36.6; O2SAT 91–97
[2025-08-11 05:57] LABS: Alanine Aminotransferase 23 U/L (6-50); Albumin Level 3.7 g/dL (3.5-5.1); Alkaline Phosphatase 76 U/L (38-126); Anion Gap 8 mmol/L (4-12); Aspartate Amino Transferase 30 U/L (17-59); Bilirubin,Total 1.1 mg/dL (0.2-1.3); Blood Urea Nitrogen 15 mg/dL (9-20); Calcium 8.9 mg/dL (8.4-10.2); Carbon Dioxide 23 mmol/L (22-30); Chloride 105 mmol/L (98-107); Estimated CRCL calculation 86 ml/min; Estimated Glomerular Filt Rate > 60; Glucose 152 mg/dL (65-110); Potassium 4.2 mmol/L (3.4-5.0); Sodium 136 mmol/L (137-145); Total Protein 7.0 g/dL (6.3-8.2)
--- NOTE | 2025-08-11 06:21 | PC.NURSE ---
HR THIS AM RANGING FROM 110'S-130'S THIS AM. DR GONSALES NOTIFIED,
[2025-08-11] MEDS: METOPROLOL TARTRATE 50 MG TAB PO (06:25)
--- NOTE | 2025-08-11 06:58 | P.PNIM_ITS ---
Progress Note: A&P Assessment and Plan (1) Atrial fibrillation with RVR: Code(s): I48.91 - Unspecified atrial fibrillation Status: Acute Assessment and Plan: * Keep serum potassium >4 and keep magnesium >2 * Received diltiazem 20 mg IV x1 * Lovenox dvt prophylaxis * Consult Cardiology for further management, appreciate assistance and recommendations * 08/11 * Continues to be tachycardic, diaphoretic, but denies any chest pain or shortness of breath * Cardiology increase metoprolol to 75 mg q.8 hours * If heart rate does not improve, consider DCCV -will need to be under anesthesia given cardiomyopathy and obesity (2) Shortness of breath: Code(s): R06.02 - Shortness of breath Status: Acute Assessment and Plan: * See above * Likely secondary to underlying AFib with RVR * Chest x-ray not indicative of any acute cardiopulmonary process * Troponin within normal limits. * BNP 4080, but does not appear to be fluid overloaded on exam (3) Congestive heart failure (CHF): Code(s): I50.9 - Heart failure, unspecified Status: Acute Assessment and Plan: * Symptoms: Shortness of breath * Current medications: Jardiance * Supportive treatment * BNP: 4080 * EKG: AFib with RVR * Chest XR: No acute cardiopulmonary disease * Echo: EF of 30% per recent echo 06/2025 * Monitor vital signs, I&Os, BUN/creatinine, daily weights, neuro status and patient is a fall risk * Monitor serum electrolytes, Keep serum Potassium>4 and serum Magnesium>2 and CBC * Per cardiology recommendations * Continue Metoprolol, Jardiance and Lasix * Can consider ARNI on OP basis (4) Hypertension: Code(s): I10 - Essential (primary) hypertension Status: Acute Assessment and Plan: * Patient's blood pressure was reviewed on 08/10 * Blood pressure remains well controlled * Will continue current medications * 160/95 Subjective Date/time seen: 08/11/25 06:58 Interval history: 69-year-old male with history of anemia, cirrhosis, diastolic CHF, paroxysmal atrial fibrillation status post left atrial appendage occlusion device, diabetes mellitus without current long-term use of insulin, presents for SOB. This is been going on for a few days, feels as he views fatigued & also felt palpitations. 08/11/2025 Patient sitting comfortably in bed at time of examination. Denies any chest pain, shortness of breath, nausea/vomiting, or abdominal pain at this time. Patient appears diaphoretic exam, but denies any shortness of breath, nausea/vomiting or chest pain. Cardiology increasing metoprolol to 75 mg q.8 hours, if heart rate does not improve will consider DCCV. Review of Systems Review of Systems: All systems reviewed & are unremarkable except as noted in HPI and below (Subjective) Exam Const: General: comfortable and no acute distress Eyes: Pupils: Equal, round and reactive pupils present Neck: Neck: supple Resp: Effort & Inspection: normal respiratory effort Auscultation: clear to auscultation bilaterally Cardio: Rate: tachycardic Rhythm: abnormal rhythm GI: Inspection: non-distended Neuro: Cranial nerves: Yes Equal, round and reactive pupils present Motor exam (neuro): 5/5 motor strength present throughout Extrem: General: no edema Objective Data Vital Signs Vital Signs: Vital Signs - 24 hr 08/10/25 08:04 08/10/25 08:46 08/10/25 08:46 Temperature Pulse Rate 130 H 125 H 125 H Respiratory Rate 16 Blood Pressure Pulse Oximetry 97 Oxygen Delivery Room Air Fraction of Inspired Oxygen 08/10/25 12:03 08/10/25 14:00 08/10/25 16:04 Temperature 97.6 F Pulse Rate 117 H 76 109 H Respiratory Rate 16 Blood Pressure 114/91 H Pulse Oximetry 96 Oxygen Delivery Fraction of Inspired Oxygen 08/10/25 20:00 08/10/25 20:42 08/10/25 20:50 Temperature Pulse Rate 121 H 109 H 70 Respiratory Rate Blood Pressure Pulse Oximetry 92 Oxygen Delivery Room Air Fraction of Inspired Oxygen 21 08/10/25 21:00 08/11/25 00:00 08/11/25 04:00 Temperature 97 F L Pulse Rate 96 126 H 118 H Respiratory Rate 16 Blood Pressure 130/87 Pulse Oximetry 94 Oxygen Delivery Fraction of Inspired Oxygen 08/11/25 05:51 08/11/25 06:25 Temperature 98 F Pulse Rate 100 126 H Respiratory Rate 18 Blood Pressure 160/95 H Pulse Oximetry 97 Oxygen Delivery Fraction of Inspired Oxygen Intake/Output Intake/Output: Intake & Output 09/22/25 09/23/25 09/24/25 09/25/25 23:59 23:59 23:59 23:59 Intake Total 500 1460 400 Balance 500 1460 400 Meds/Results Medications: Active Medications Generic Name Dose Route Start Last Admin Trade Name Darrion PRN Reason Stop Dose Admin Atorvastatin Calcium 10 mg 08/10/25 09:00 08/10/25 08:46 Atorvastatin 10 Mg Tablet PO 10 mg DAILY REGINA Administration Bupropion HCl 300 mg 08/10/25 21:00 08/10/25 20:41 Bupropion Hcl Xl (24 Hr) 150 Mg Tabcr PO 300 mg HS REGINA Administration Cyanocobalamin 1,000 mcg 08/10/25 09:00 08/10/25 08:45 Cyanocobalamin 1,000 Mcg Tablet PO 1,000 mcg QAM REGINA Administration Dextrose 12.5 gm 08/10/25 05:35 Dextrose 50% 25 Gm/50 Ml Syringe IV PUSH PRN PRN Hypoglycemia Protocol Duloxetine HCl 60 mg 08/10/25 09:00 08/10/25 08:46 Duloxetine Hcl 60 Mg Capsule.Dr PO 60 mg DAILY REGINA Administration Empagliflozin 10 mg 08/10/25 09:00 08/10/25 08:45 Empagliflozin 10 Mg Tablet PO 10 mg DAILY REGINA Administration Enoxaparin Sodium 40 mg 08/10/25 12:00 08/10/25 11:49 Enoxaparin 40 Mg/0.4 Ml Syringe SUB-Q 40 mg DAILY REGINA Administration Folic Acid 1 mg 08/10/25 09:00 08/10/25 08:46 Folic Acid 1 Mg Tablet PO 1 mg DAILY REGINA Administration Furosemide 20 mg 08/10/25 09:00 08/10/25 08:45 Furosemide 20 Mg Tablet PO 20 mg DAILY REGINA Administration Glucose 15 gm 08/10/25 05:35 Glucose Oral Gel 15 Gm Of Glucse In 37.5 Gm Tube PO PRN PRN Hypoglycemia Protocol Dextrose 1,000 mls @ 100 mls/hr 08/10/25 05:35 Dextrose 5% 1,000 Ml IVPB PRN PRN Hypoglycemia Protocol Insulin Aspart 2 - 5 units 08/10/25 08:00 08/10/25 16:43 Insulin Aspart (*Bkc) 100 Units/Ml SUB-Q Not Given TIDWM REGINA Protocol Insulin Aspart 1 - 2 units 08/10/25 21:00 08/10/25 20:42 Insulin Aspart (*Bkc) 100 Units/Ml SUB-Q Not Given HS [facility] Protocol Magnesium Oxide 400 mg 08/10/25 09:00 08/10/25 08:46 Magnesium Oxide 400 Mg Tablet PO 400 mg DAILY REGINA Administration Metoprolol Tartrate 50 mg 08/10/25 09:00 08/11/25 06:25 Metoprolol Tartrate 50 Mg Tab PO 50 mg Q12HR REGINA Administration Radiology Results: ITS Impressions Chest X-Ray 08/09/25 13:46 IMPRESSION: 1: NO ACUTE CARDIOPULMONARY DISEASE. Labs Labs: Laboratory Results - last 24 hr 08/10/25 08/10/25 08/10/25 07:54 09:23 11:33 WBC 7.2 RBC 4.56 L Hgb 15.1 Hct 46.9 MCV 102.9 H MCH 33.1 MCHC 32.2 RDW 13.9 Plt Count 216 MPV 11.1 H Immature Gran % (Auto) 0.3 Neut % (Auto) 56.8 Lymph % (Auto) 28.9 [place] % (Auto) 9.7 H Eos % (Auto) 3.2 Baso % (Auto) 1.1 Lymph # (Auto) 2.08 [place] # (Auto) 0.7 H Eos # (Auto) 0.2 Baso # (Auto) 0.1 Abs Immat Gran (auto) 0.02 Absolute Neuts (auto) 4.1 Absolute Nucleated RBC 0.000 Nucleated RBC % 0.0 Sodium 140 Potassium 4.5 Chloride 100 Carbon Dioxide 33 H Anion Gap 7 BUN 16 Creatinine 1.05 Estim Creat Clear Calc 75 Estimated GFR > 60 Glucose 203 H POC Capillary Glucose 155 H 172 H Calcium 9.2 Magnesium 2.0 Total Bilirubin 1.3 AST 31 ALT 25 Alkaline Phosphatase 84 Total Protein 7.1 Albumin 3.8 TSH (Reflex) 2.660 08/10/25 08/10/25 08/11/25 16:33 20:25 05:10 WBC RBC Hgb Hct MCV MCH MCHC RDW Plt Count MPV Immature Gran % (Auto) Neut % (Auto) Lymph % (Auto) [place] % (Auto) Eos % (Auto) Baso % (Auto) Lymph # (Auto) [place] # (Auto) Eos # (Auto) Baso # (Auto) Abs Immat Gran (auto) Absolute Neuts (auto) Absolute Nucleated RBC Nucleated RBC % Sodium 136 L Potassium 4.2 Chloride 105 Carbon Dioxide 23 Anion Gap 8 BUN 15 Creatinine 0.90 Estim Creat Clear Calc 86 Estimated GFR > 60 Glucose 152 H POC Capillary Glucose 170 H 181 H Calcium 8.9 Magnesium Total Bilirubin 1.1 AST 30 ALT 23 Alkaline Phosphatase 76 Total Protein 7.0 Albumin 3.7 TSH (Reflex) Quality VTE Prophylaxis VTE prophylaxis: pharmacologic ordered
[2025-08-11] MEDS: MAGNESIUM OXIDE 400 MG TABLET PO (08:34)
[2025-08-11] MEDS: FOLIC ACID 1 MG TABLET PO (08:34)
[2025-08-11] MEDS: DULoxetine HCL 60 MG CAPSULE.DR PO (08:34)
[2025-08-11] MEDS: CYANOCOBALAMIN 1,000 MCG TABLET 1000 MCG PO (08:34)
[2025-08-11] MEDS: EMPAGLIFLOZIN 10 MG TABLET PO (08:34)
[2025-08-11] MEDS: FUROSEMIDE 20 MG TABLET PO (08:34)
[2025-08-11] MEDS: ATORVASTATIN 10 MG TABLET PO (08:34)
[2025-08-11] MEDS: ENOXAPARIN 40 MG/0.4 ML SYRINGE SUB-Q (08:36)
[2025-08-11 08:49] LABS: Hematocrit 50.5 % (42.0-52.0); Hemoglobin 16.1 g/dL (14.0-18.0); Immature Granulocyte Percent A 0.4 % (0-0.5); Lymphocytes Absolute Auto 2.34 K/mm3 (0.9-3.2); Mean Corpuscular HGB Conc 31.9 g/dl (32-36); Mean Corpuscular Hemoglobin 33.3 pg (26-34); Mean Corpuscular Volume 104.3 fl (80-100); Nucleated Red Blood Cells Absolute Auto 0.000 K/mm3 (0.0-0.012); Nucleated Red Blood Cells Perc 0.0 % (0.0-0.2); Platelet Count Result 243 k/mm3 (150-375); Red Blood Count 4.84 M/mm3 (4.6-6.20); White Blood Count 9.5 K/mm3 (4.5-10.0)
--- NOTE | 2025-08-11 08:51 | PM.PNCARD ---
Progress Note: A&P Assessment and Plan (1) Paroxysmal atrial fibrillation: Code(s): I48.0 - Paroxysmal atrial fibrillation Status: Acute (2) Congestive heart failure (CHF): Code(s): I50.9 - Heart failure, unspecified Status: Acute (3) History of cardiomyopathy: Code(s): Z86.79 - Personal history of other diseases of the circulatory system Status: Acute (4) Hypertension associated with type 2 diabetes mellitus: Code(s): E11.59 - Type 2 diabetes mellitus with other circulatory complications; I15.2 - Hypertension secondary to endocrine disorders Status: Acute (5) Diabetes: Code(s): E11.9 - Type 2 diabetes mellitus without complications Status: Acute (6) Obesity: Code(s): E66.9 - Obesity, unspecified Status: Acute Plan Atrial fibrillation with RVR. Present on admission s/p dose of IV cardizem, rates now in the 120s. This appears to be paroxysmal in nature as patient in NSR in January of this year. On recent echo in June however, it was noted that he was in afib. Will increase increase Metoprolol from to 75mg q8h for better rate control. If unable to control HR can consider DCCV which would need to be performed with anesthesia because of cardiomyopathy and obesity. Will benefit from OP EP evaluation for management of his afib. No AC as s/p LAOO in January of this year Shortness of breath with exertion. Most likely secondary to his afib with RVR. CXR with no acute cardiopulmonary process and EKG with no acute ischemic changes. Troponin within normal range x 2. Despite elevated pBNP does not appear grossly volume overloaded at this time. Continue with home lasix 20 mg daily CHF/NICMP. EF of 30% per recent echo from office 06/2025. History of LHC in 2018 with minimal CAD. Would continue with GDMT. Continue Metoprolol, Jardiance and lasix. Can consider ARNI on OP basis Hypertension. BP above goal. As above, increasing metoprolol. Diabetes with chronic kidney disease. Glycemic control per primary team History of ETOH abuse. Denies any recent heavy use Obesity. Weight loss encouraged. Plan: Increase Metoprolol to 75mg q8h If reasonable rate control OP EP evaluation Can consider SHAUN/DCCV if poor response to increased BB dose Subjective Date/time seen: 08/11/25 08:51 Interval history: Cardiology follow up visit Date of service 08/11/2025: Feels ok today. Complaining about sweating. His heart rate remains elevated but he denies any palpitations, chest pain, shortness of breath. Review of Systems Review of Systems: All systems reviewed & are unremarkable except as noted in HPI and below Exam Const: General: comfortable and no acute distress Eyes: General: appearance normal, both eyes and all related structures Neck: Neck: supple and no JVD Resp: Effort & Inspection: normal respiratory effort Cardio: Rate: tachycardic Rhythm: abnormal rhythm Skin: General skin exam: normal color Neuro: Speech: normal speech Extrem: General: normal to inspection Psych: Mental Status: mental status grossly normal Affect: normal affect Objective Data Vital Signs Vital Signs: Vital Signs - 24 hr 08/10/25 12:03 08/10/25 14:00 08/10/25 16:04 Temperature 36.4 C Pulse Rate 117 H 76 109 H Respiratory Rate 16 Blood Pressure 114/91 H Pulse Oximetry 96 Oxygen Delivery Fraction of Inspired Oxygen 08/10/25 20:00 08/10/25 20:42 08/10/25 20:50 Temperature Pulse Rate 121 H 109 H 70 Respiratory Rate Blood Pressure Pulse Oximetry 92 Oxygen Delivery Room Air Fraction of Inspired Oxygen 21 08/10/25 21:00 08/11/25 00:00 08/11/25 04:00 Temperature 36.1 C L Pulse Rate 96 126 H 118 H Respiratory Rate 16 Blood Pressure 130/87 Pulse Oximetry 94 Oxygen Delivery Fraction of Inspired Oxygen 08/11/25 05:51 08/11/25 06:25 Temperature 36.6 C Pulse Rate 100 126 H Respiratory Rate 18 Blood Pressure 160/95 H Pulse Oximetry 97 Oxygen Delivery Fraction of Inspired Oxygen Intake/Output Intake/Output: Intake & Output 08/08/25 08/09/25 08/10/25 08/11/25 23:59 23:59 23:59 23:59 Intake Total 500 1460 400 Balance 500 1460 400 Meds/Results Medications: Active Medications Generic Name Dose Route Start Last Admin Trade Name Freq PRN Reason Stop Dose Admin Atorvastatin Calcium 10 mg 08/10/25 09:00 08/11/25 08:34 Atorvastatin 10 Mg Tablet PO 10 mg DAILY REGINA Administration Bupropion HCl 300 mg 08/10/25 21:00 08/10/25 20:41 Bupropion Hcl Xl (24 Hr) 150 Mg Tabcr PO 300 mg HS REGINA Administration Cyanocobalamin 1,000 mcg 08/10/25 09:00 08/11/25 08:34 Cyanocobalamin 1,000 Mcg Tablet PO 1,000 mcg QAM REGINA Administration Dextrose 12.5 gm 08/10/25 05:35 Dextrose 50% 25 Gm/50 Ml Syringe IV PUSH PRN PRN Hypoglycemia Protocol Duloxetine HCl 60 mg 08/10/25 09:00 08/11/25 08:34 Duloxetine Hcl 60 Mg Capsule.Dr PO 60 mg DAILY REGINA Administration Empagliflozin 10 mg 08/10/25 09:00 08/11/25 08:34 Empagliflozin 10 Mg Tablet PO 10 mg DAILY REGINA Administration Enoxaparin Sodium 40 mg 08/10/25 12:00 08/11/25 08:36 Enoxaparin 40 Mg/0.4 Ml Syringe SUB-Q 40 mg DAILY REGINA Administration Folic Acid 1 mg 08/10/25 09:00 08/11/25 08:34 Folic Acid 1 Mg Tablet PO 1 mg DAILY REGINA Administration Furosemide 20 mg 08/10/25 09:00 08/11/25 08:34 Furosemide 20 Mg Tablet PO 20 mg DAILY REGINA Administration Glucose 15 gm 08/10/25 05:35 Glucose Oral Gel 15 Gm Of Glucse In 37.5 Gm Tube PO PRN PRN Hypoglycemia Protocol Dextrose 1,000 mls @ 100 mls/hr 08/10/25 05:35 Dextrose 5% 1,000 Ml IVPB PRN PRN Hypoglycemia Protocol Insulin Aspart 2 - 5 units 08/10/25 08:00 08/11/25 08:33 Insulin Aspart (*Bkc) 100 Units/Ml SUB-Q Not Given TIDWM REGINA Protocol Insulin Aspart 1 - 2 units 08/10/25 21:00 08/10/25 20:42 Insulin Aspart (*Bkc) 100 Units/Ml SUB-Q Not Given HS REGINA Protocol Magnesium Oxide 400 mg 08/10/25 09:00 08/11/25 08:34 Magnesium Oxide 400 Mg Tablet PO 400 mg DAILY REGINA Administration Metoprolol Tartrate 50 mg 08/10/25 09:00 08/11/25 06:25 Metoprolol Tartrate 50 Mg Tab PO 50 mg Q12HR REGINA Administration Radiology Results: ITS Impressions Chest X-Ray 08/09/25 13:46 IMPRESSION: 1: NO ACUTE CARDIOPULMONARY DISEASE. Labs Labs: Laboratory Results - last 24 hr 08/10/25 08/10/25 08/10/25 09:23 11:33 16:33 WBC 7.2 RBC 4.56 L Hgb 15.1 Hct 46.9 MCV 102.9 H MCH 33.1 MCHC 32.2 RDW 13.9 Plt Count 216 MPV 11.1 H Immature Gran % (Auto) 0.3 Neut % (Auto) 56.8 Lymph % (Auto) 28.9 [place] % (Auto) 9.7 H Eos % (Auto) 3.2 Baso % (Auto) 1.1 Lymph # (Auto) 2.08 [place] # (Auto) 0.7 H Eos # (Auto) 0.2 Baso # (Auto) 0.1 Abs Immat Gran (auto) 0.02 Absolute Neuts (auto) 4.1 Absolute Nucleated RBC 0.000 Nucleated RBC % 0.0 Sodium 140 Potassium 4.5 Chloride 100 Carbon Dioxide 33 H Anion Gap 7 BUN 16 Creatinine 1.05 Estim Creat Clear Calc 75 Estimated GFR > 60 Glucose 203 H POC Capillary Glucose 172 H 170 H Calcium 9.2 Magnesium 2.0 Total Bilirubin 1.3 AST 31 ALT 25 Alkaline Phosphatase 84 Total Protein 7.1 Albumin 3.8 TSH (Reflex) 2.660 08/10/25 08/11/25 08/11/25 20:25 05:10 08:22 WBC RBC Hgb Hct MCV MCH MCHC RDW Plt Count MPV Immature Gran % (Auto) Neut % (Auto) Lymph % (Auto) [place] % (Auto) Eos % (Auto) Baso % (Auto) Lymph # (Auto) [place] # (Auto) Eos # (Auto) Baso # (Auto) Abs Immat Gran (auto) Absolute Neuts (auto) Absolute Nucleated RBC Nucleated RBC % Sodium 136 L Potassium 4.2 Chloride 105 Carbon Dioxide 23 Anion Gap 8 BUN 15 Creatinine 0.90 Estim Creat Clear Calc 86 Estimated GFR > 60 Glucose 152 H POC Capillary Glucose 181 H 183 H Calcium 8.9 Magnesium Total Bilirubin 1.1 AST 30 ALT 23 Alkaline Phosphatase 76 Total Protein 7.0 Albumin 3.7 TSH (Reflex) 08/11/25 08:28 WBC 9.5 RBC 4.84 Hgb 16.1 Hct 50.5 MCV 104.3 H MCH 33.3 MCHC 31.9 L RDW 14.0 Plt Count 243 MPV 11.0 H Immature Gran % (Auto) 0.4 Neut % (Auto) 63.5 Lymph % (Auto) 24.6 [place] % (Auto) 8.4 Eos % (Auto) 1.8 Baso % (Auto) 1.3 H Lymph # (Auto) 2.34 [place] # (Auto) 0.8 H Eos # (Auto) 0.2 Baso # (Auto) 0.1 Abs Immat Gran (auto) 0.04 H Absolute Neuts (auto) 6.0 Absolute Nucleated RBC 0.000 Nucleated RBC % 0.0 Sodium Potassium Chloride Carbon Dioxide Anion Gap BUN Creatinine Estim Creat Clear Calc Estimated GFR Glucose POC Capillary Glucose Calcium Magnesium Total Bilirubin AST ALT Alkaline Phosphatase Total Protein Albumin TSH (Reflex) Quality VTE Prophylaxis VTE prophylaxis: pharmacologic ordered
[2025-08-11] MEDS: METOPROLOL TARTRATE 25 MG TABLET 75 MG PO ×2 (13:09→21:25)
[2025-08-11] MEDS: buPROPion HCL XL (24 HR) 150 MG TABCR 300 MG PO (21:25)
[2025-08-11] MEDS: INSULIN ASPART (*BKC) 100 UNITS/ML SUB-Q (21:28)
[2025-08-12] VITALS (13 sets, daily range): BP systolic 108–118; BP diastolic 68–90; PULSE 93–105; RESP 16–18; TEMP 36.6–37.1; O2SAT 94–97
[2025-08-12 05:10] LABS: Hematocrit 51.1 % (42.0-52.0); Hemoglobin 16.2 g/dL (14.0-18.0); Immature Granulocyte Percent A 0.4 % (0-0.5); Lymphocytes Absolute Auto 2.80 K/mm3 (0.9-3.2); Mean Corpuscular HGB Conc 31.7 g/dl (32-36); Mean Corpuscular Hemoglobin 33.1 pg (26-34); Mean Corpuscular Volume 104.5 fl (80-100); Nucleated Red Blood Cells Absolute Auto 0.020 K/mm3 (0.0-0.012); Nucleated Red Blood Cells Perc 0.2 % (0.0-0.2); Platelet Count Result 238 k/mm3 (150-375); Red Blood Count 4.89 M/mm3 (4.6-6.20); White Blood Count 8.3 K/mm3 (4.5-10.0)
[2025-08-12 05:30] LABS: Alanine Aminotransferase 23 U/L (6-50); Albumin Level 3.8 g/dL (3.5-5.1); Alkaline Phosphatase 75 U/L (38-126); Anion Gap 6 mmol/L (4-12); Aspartate Amino Transferase 32 U/L (17-59); Bilirubin,Total 1.1 mg/dL (0.2-1.3); Blood Urea Nitrogen 18 mg/dL (9-20); Calcium 9.0 mg/dL (8.4-10.2); Carbon Dioxide 30 mmol/L (22-30); Chloride 102 mmol/L (98-107); Estimated CRCL calculation 73 ml/min; Estimated Glomerular Filt Rate > 60; Glucose 158 mg/dL (65-110); Potassium 3.9 mmol/L (3.4-5.0); Sodium 138 mmol/L (137-145); Total Protein 7.1 g/dL (6.3-8.2)
[2025-08-12] MEDS: METOPROLOL TARTRATE 25 MG TABLET 75 MG PO ×3 (05:57→21:42)
--- NOTE | 2025-08-12 07:27 | P.PNIM_ITS ---
Progress Note: A&P Assessment and Plan (1) Atrial fibrillation with RVR: Code(s): I48.91 - Unspecified atrial fibrillation Status: Acute Assessment and Plan: * Keep serum potassium >4 and keep magnesium >2 * Received diltiazem 20 mg IV x1 * Lovenox dvt prophylaxis * Consult Cardiology for further management, appreciate assistance and recommendations * 08/12 * Metoprolol switched from 75mg q8hr -> ToprolXL 200mg daily * Add Digoxin 125mcg daily * Plan for Outpt SHAUN/DCCV (2) Shortness of breath: Code(s): R06.02 - Shortness of breath Status: Acute Assessment and Plan: * See above * Likely secondary to underlying AFib with RVR * Chest x-ray not indicative of any acute cardiopulmonary process * Troponin within normal limits. * BNP 4080, but does not appear to be fluid overloaded on exam (3) Congestive heart failure (CHF): Code(s): I50.9 - Heart failure, unspecified Status: Acute Assessment and Plan: * Symptoms: Shortness of breath * Current medications: Jardiance * Supportive treatment * BNP: 4080 * EKG: AFib with RVR * Chest XR: No acute cardiopulmonary disease * Echo: EF of 30% per recent echo 06/2025 * Monitor vital signs, I&Os, BUN/creatinine, daily weights, neuro status and patient is a fall risk * Monitor serum electrolytes, Keep serum Potassium>4 and serum Magnesium>2 and CBC * Per cardiology recommendations * Continue Metoprolol, Jardiance and Lasix * Can consider ARNI on OP basis (4) Hypertension: Code(s): I10 - Essential (primary) hypertension Status: Acute Assessment and Plan: * Patient's blood pressure was reviewed on 08/10 * Blood pressure remains well controlled * Will continue current medications * 160/95 Subjective Date/time seen: 08/12/25 07:27 Interval history: 69-year-old male with history of anemia, cirrhosis, diastolic CHF, paroxysmal atrial fibrillation status post left atrial appendage occlusion device, diabetes mellitus without current long-term use of insulin, presents for SOB. This is been going on for a few days, feels as he views fatigued & also felt palpitations. 08/12/2025 Patient sitting comfortably in bed at time of examination. Denies any chest pain, palpitations, SOB at this time. Does not appear to be diaphoretic. HR has been in the low 100s since being switched to 75mg TID. Per Cardio - will switch met tart to ToprolXL 200mg daily and will ad digoxin 125mcg daily. Plan for outpt SHAUN/DCCV. Review of Systems Review of Systems: All systems reviewed & are unremarkable except as noted in HPI and below (Subjective) Exam Const: General: comfortable and no acute distress Eyes: Pupils: Equal, round and reactive pupils present Neck: Neck: supple Resp: Effort & Inspection: normal respiratory effort Auscultation: clear to auscultation bilaterally Cardio: Rate: regular rate and tachycardic Rhythm: abnormal rhythm GI: Inspection: non-distended Neuro: Cranial nerves: Yes Equal, round and reactive pupils present Motor exam (neuro): 5/5 motor strength present throughout Extrem: General: no edema Objective Data Vital Signs Vital Signs: Vital Signs - 24 hr 08/11/25 08:00 08/11/25 08:35 08/11/25 12:00 Temperature Pulse Rate 131 H 105 H Respiratory Rate Blood Pressure Pulse Oximetry Oxygen Delivery Room Air 08/11/25 13:09 08/11/25 14:00 08/11/25 16:00 Temperature 97.6 F Pulse Rate 114 H 58 L 98 Respiratory Rate 16 Blood Pressure 107/80 Pulse Oximetry 94 Oxygen Delivery 08/11/25 19:33 08/11/25 20:00 08/11/25 21:25 Temperature 97.8 F Pulse Rate 82 108 H 106 H Respiratory Rate 18 Blood Pressure 101/77 Pulse Oximetry 91 Oxygen Delivery 08/12/25 00:00 08/12/25 04:00 08/12/25 04:29 Temperature 98.8 F Pulse Rate 104 H 98 96 Respiratory Rate 18 Blood Pressure 118/90 Pulse Oximetry 94 Oxygen Delivery 08/12/25 05:57 Temperature Pulse Rate 100 Respiratory Rate Blood Pressure Pulse Oximetry Oxygen Delivery Intake/Output Intake/Output: Intake & Output 08/09/25 08/10/25 08/11/25 08/12/25 23:59 23:59 23:59 23:59 Intake Total 500 1460 973 550 Balance 500 1460 973 550 Meds/Results Medications: Active Medications Generic Name Dose Route Start Last Admin Trade Name Freq PRN Reason Stop Dose Admin Atorvastatin Calcium 10 mg 08/10/25 09:00 08/11/25 08:34 Atorvastatin 10 Mg Tablet PO 10 mg DAILY REGINA Administration Bupropion HCl 300 mg 08/10/25 21:00 08/11/25 21:25 Bupropion Hcl Xl (24 Hr) 150 Mg Tabcr PO 300 mg HS REGINA Administration Cyanocobalamin 1,000 mcg 08/10/25 09:00 08/11/25 08:34 Cyanocobalamin 1,000 Mcg Tablet PO 1,000 mcg QAM REGINA Administration Dextrose 12.5 gm 08/10/25 05:35 Dextrose 50% 25 Gm/50 Ml Syringe IV PUSH PRN PRN Hypoglycemia Protocol Duloxetine HCl 60 mg 08/10/25 09:00 08/11/25 08:34 Duloxetine Hcl 60 Mg Capsule.Dr PO 60 mg DAILY REGINA Administration Empagliflozin 10 mg 08/10/25 09:00 08/11/25 08:34 Empagliflozin 10 Mg Tablet PO 10 mg DAILY REGINA Administration Enoxaparin Sodium 40 mg 08/10/25 12:00 08/11/25 08:36 Enoxaparin 40 Mg/0.4 Ml Syringe SUB-Q 40 mg DAILY REGINA Administration Folic Acid 1 mg 08/10/25 09:00 08/11/25 08:34 Folic Acid 1 Mg Tablet PO 1 mg DAILY REGINA Administration Furosemide 20 mg 08/10/25 09:00 08/11/25 08:34 Furosemide 20 Mg Tablet PO 20 mg DAILY REGINA Administration Glucose 15 gm 08/10/25 05:35 Glucose Oral Gel 15 Gm Of Glucse In 37.5 Gm Tube PO PRN PRN Hypoglycemia Protocol Dextrose 1,000 mls @ 100 mls/hr 08/10/25 05:35 Dextrose 5% 1,000 Ml IVPB PRN PRN Hypoglycemia Protocol Insulin Aspart 2 - 5 units 08/10/25 08:00 08/11/25 16:45 Insulin Aspart (*Bkc) 100 Units/Ml SUB-Q Not Given TIDWM REGINA Protocol Insulin Aspart 1 - 2 units 08/10/25 21:00 08/11/25 21:28 Insulin Aspart (*Bkc) 100 Units/Ml SUB-Q 1 units HS REGINA Administration Protocol Magnesium Oxide 400 mg 08/10/25 09:00 08/11/25 08:34 Magnesium Oxide 400 Mg Tablet PO 400 mg DAILY REGINA Administration Metoprolol Tartrate 75 mg 08/11/25 14:00 08/12/25 05:57 Metoprolol Tartrate 25 Mg Tablet PO 75 mg Q8HR REGINA Administration Radiology Results: ITS Impressions Chest X-Ray 08/09/25 13:46 IMPRESSION: 1: NO ACUTE CARDIOPULMONARY DISEASE. Labs Labs: Laboratory Results - last 24 hr 08/11/25 08/11/25 08/11/25 08:22 08:28 11:38 WBC 9.5 RBC 4.84 Hgb 16.1 Hct 50.5 MCV 104.3 H MCH 33.3 MCHC 31.9 L RDW 14.0 Plt Count 243 MPV 11.0 H Immature Gran % (Auto) 0.4 Neut % (Auto) 63.5 Lymph % (Auto) 24.6 [place] % (Auto) 8.4 Eos % (Auto) 1.8 Baso % (Auto) 1.3 H Lymph # (Auto) 2.34 [place] # (Auto) 0.8 H Eos # (Auto) 0.2 Baso # (Auto) 0.1 Abs Immat Gran (auto) 0.04 H Absolute Neuts (auto) 6.0 Absolute Nucleated RBC 0.000 Nucleated RBC % 0.0 Sodium Potassium Chloride Carbon Dioxide Anion Gap BUN Creatinine Estim Creat Clear Calc Estimated GFR Glucose POC Capillary Glucose 183 H 150 H Calcium Total Bilirubin AST ALT Alkaline Phosphatase Total Protein Albumin 08/11/25 08/12/25 16:45 04:42 WBC 8.3 RBC 4.89 Hgb 16.2 Hct 51.1 MCV 104.5 H MCH 33.1 MCHC 31.7 L RDW 13.9 Plt Count 238 MPV 11.4 H Immature Gran % (Auto) 0.4 Neut % (Auto) 52.3 Lymph % (Auto) 33.7 [place] % (Auto) 9.8 H Eos % (Auto) 2.4 Baso % (Auto) 1.4 H Lymph # (Auto) 2.80 [place] # (Auto) 0.8 H Eos # (Auto) 0.2 Baso # (Auto) 0.1 Abs Immat Gran (auto) 0.03 Absolute Neuts (auto) 4.3 Absolute Nucleated RBC 0.020 H Nucleated RBC % 0.2 Sodium 138 Potassium 3.9 Chloride 102 Carbon Dioxide 30 Anion Gap 6 BUN 18 Creatinine 1.07 Estim Creat Clear Calc 73 Estimated GFR > 60 Glucose 158 H POC Capillary Glucose 168 H Calcium 9.0 Total Bilirubin 1.1 AST 32 ALT 23 Alkaline Phosphatase 75 Total Protein 7.1 Albumin 3.8 Quality VTE Prophylaxis VTE prophylaxis: pharmacologic ordered
[2025-08-12] MEDS: DULoxetine HCL 60 MG CAPSULE.DR PO (08:46)
[2025-08-12] MEDS: MAGNESIUM OXIDE 400 MG TABLET PO (08:46)
[2025-08-12] MEDS: ATORVASTATIN 10 MG TABLET PO (08:46)
[2025-08-12] MEDS: CYANOCOBALAMIN 1,000 MCG TABLET 1000 MCG PO (08:46)
[2025-08-12] MEDS: EMPAGLIFLOZIN 10 MG TABLET PO (08:46)
[2025-08-12] MEDS: FUROSEMIDE 20 MG TABLET PO (08:46)
[2025-08-12] MEDS: ENOXAPARIN 40 MG/0.4 ML SYRINGE SUB-Q (08:47)
[2025-08-12] MEDS: FOLIC ACID 1 MG TABLET PO (08:47)
--- NOTE | 2025-08-12 11:10 | P.PNCA_ITS ---
Progress Note: A&P Assessment and Plan (1) Paroxysmal atrial fibrillation: Code(s): I48.0 - Paroxysmal atrial fibrillation Status: Acute (2) Congestive heart failure (CHF): Code(s): I50.9 - Heart failure, unspecified Status: Acute (3) History of cardiomyopathy: Code(s): Z86.79 - Personal history of other diseases of the circulatory system Status: Acute (4) Hypertension associated with type 2 diabetes mellitus: Code(s): E11.59 - Type 2 diabetes mellitus with other circulatory complications; I15.2 - Hypertension secondary to endocrine disorders Status: Acute (5) Diabetes: Code(s): E11.9 - Type 2 diabetes mellitus without complications Status: Acute (6) Obesity: Code(s): E66.9 - Obesity, unspecified Status: Acute Plan Atrial fibrillation with RVR. Present on admission s/p dose of IV cardizem, r ates now in the 120s. This appears to be paroxysmal in nature as patient in NSR in January of this year. On recent echo in June however, it was noted that he was in afib. Will shift metoprolol tartrate to ToprolXL 200mg daily and add digoxin 125mch daily - give first dose now and observe HR. Will plan outpatient SHAUN/DCCV. Will benefit from OP EP evaluation as well for management of his afib. No AC as s/p LAOO in January of this year Shortness of breath with exertion. Most likely secondary to his afib with RVR. CXR with no acute cardiopulmonary process and EKG with no acute ischemic changes. Troponin within normal range x 2. Despite elevated pBNP does not appear grossly volume overloaded at this time. Continue with home lasix 20 mg daily CHF/NICMP. EF of 30% per recent echo from office 06/2025. History of LHC in 2018 with minimal CAD. Would continue with GDMT. Continue Metoprolol, Jardiance and lasix. Can consider ARNI on OP basis Hypertension. Now at goal. Diabetes with chronic kidney disease. Glycemic control per primary team History of ETOH abuse. Denies any recent heavy use Obesity. Weight loss encouraged. Plan: ToprolXL 200mg daily Start digoxin 125mcg daily Outpatient SHAUN/DCCV Subjective Date/time seen: 08/12/25 11:10 Interval history: Cardiology follow up visit Date of service 08/11/2025: Feels ok today. Complaining about sweating. His heart rate remains elevated but he denies any palpitations, chest pain, shortness of breath. Date of service 08/12/2025: Continues to feel well. Eager to go home. His heart rate on average is better controlled, but he does have tachycardia with activity. He is asymptomatic. Review of Systems Review of Systems: All systems reviewed & are unremarkable except as noted in HPI and below Exam Const: General: comfortable and no acute distress Eyes: General: appearance normal, both eyes and all related structures Neck: Neck: supple and no JVD Resp: Effort & Inspection: normal respiratory effort Cardio: Rate: tachycardic Rhythm: abnormal rhythm Other: irreg irreg. no murmurs, rubs or gallops Skin: General skin exam: normal color Neuro: Speech: normal speech Extrem: General: normal to inspection Psych: Mental Status: mental status grossly normal Affect: normal affect Objective Data Vital Signs Vital Signs: Vital Signs - 24 hr 08/11/25 12:00 08/11/25 13:09 08/11/25 14:00 Temperature 36.4 C Pulse Rate 105 H 114 H 58 L Respiratory Rate 16 Blood Pressure 107/80 Pulse Oximetry 94 Oxygen Delivery 08/11/25 16:00 08/11/25 19:33 08/11/25 20:00 Temperature 36.6 C Pulse Rate 98 82 108 H Respiratory Rate 18 Blood Pressure 101/77 Pulse Oximetry 91 Oxygen Delivery 08/11/25 21:25 08/12/25 00:00 08/12/25 04:00 Temperature Pulse Rate 106 H 104 H 98 Respiratory Rate Blood Pressure Pulse Oximetry Oxygen Delivery 08/12/25 04:29 08/12/25 05:57 08/12/25 08:00 Temperature 37.1 C Pulse Rate 96 100 102 H Respiratory Rate 18 Blood Pressure 118/90 Pulse Oximetry 94 Oxygen Delivery 08/12/25 08:45 Temperature Pulse Rate Respiratory Rate Blood Pressure Pulse Oximetry Oxygen Delivery Room Air Intake/Output Intake/Output: Intake & Output 08/09/25 08/10/25 08/11/25 08/12/25 23:59 23:59 23:59 23:59 Intake Total 500 1460 973 670 Balance 500 1460 973 670 Meds/Results Medications: Active Medications Generic Name Dose Route Start Last Admin Trade Name Freq PRN Reason Stop Dose Admin Atorvastatin Calcium 10 mg 08/10/25 09:00 08/12/25 08:46 Atorvastatin 10 Mg Tablet PO 10 mg DAILY REGINA Administration Bupropion HCl 300 mg 08/10/25 21:00 08/11/25 21:25 Bupropion Hcl Xl (24 Hr) 150 Mg Tabcr PO 300 mg HS REGINA Administration Cyanocobalamin 1,000 mcg 08/10/25 09:00 08/12/25 08:46 Cyanocobalamin 1,000 Mcg Tablet PO 1,000 mcg QAM REGINA Administration Dextrose 12.5 gm 08/10/25 05:35 Dextrose 50% 25 Gm/50 Ml Syringe IV PUSH PRN PRN Hypoglycemia Protocol Digoxin 125 mcg 08/12/25 11:10 Digoxin Tab 125 Mcg Tablet PO QAM REGINA Duloxetine HCl 60 mg 08/10/25 09:00 08/12/25 08:46 Duloxetine Hcl 60 Mg Capsule.Dr PO 60 mg DAILY REGINA Administration Empagliflozin 10 mg 08/10/25 09:00 08/12/25 08:46 Empagliflozin 10 Mg Tablet PO 10 mg DAILY REGINA Administration Enoxaparin Sodium 40 mg 08/10/25 12:00 08/12/25 08:47 Enoxaparin 40 Mg/0.4 Ml Syringe SUB-Q 40 mg DAILY REGINA Administration Folic Acid 1 mg 08/10/25 09:00 08/12/25 08:47 Folic Acid 1 Mg Tablet PO 1 mg DAILY REGINA Administration Furosemide 20 mg 08/10/25 09:00 08/12/25 08:46 Furosemide 20 Mg Tablet PO 20 mg DAILY REGINA Administration Glucose 15 gm 08/10/25 05:35 Glucose Oral Gel 15 Gm Of Glucse In 37.5 Gm Tube PO PRN PRN Hypoglycemia Protocol Dextrose 1,000 mls @ 100 mls/hr 08/10/25 05:35 Dextrose 5% 1,000 Ml IVPB PRN PRN Hypoglycemia Protocol Insulin Aspart 2 - 5 units 08/10/25 08:00 08/12/25 08:46 Insulin Aspart (*Bkc) 100 Units/Ml SUB-Q Not Given TIDWM REGINA Protocol Insulin Aspart 1 - 2 units 08/10/25 21:00 08/11/25 21:28 Insulin Aspart (*Bkc) 100 Units/Ml SUB-Q 1 units HS REGINA Administration Protocol Magnesium Oxide 400 mg 08/10/25 09:00 08/12/25 08:46 Magnesium Oxide 400 Mg Tablet PO 400 mg DAILY REGINA Administration Metoprolol Tartrate 75 mg 08/11/25 14:00 08/12/25 05:57 Metoprolol Tartrate 25 Mg Tablet PO 75 mg Q8HR REGINA Administration Radiology Results: ITS Impressions Chest X-Ray 08/09/25 13:46 IMPRESSION: 1: NO ACUTE CARDIOPULMONARY DISEASE. Labs Labs: Laboratory Results - last 24 hr 08/11/25 08/11/25 08/12/25 11:38 16:45 04:42 WBC 8.3 RBC 4.89 Hgb 16.2 Hct 51.1 MCV 104.5 H MCH 33.1 MCHC 31.7 L RDW 13.9 Plt Count 238 MPV 11.4 H Immature Gran % (Auto) 0.4 Neut % (Auto) 52.3 Lymph % (Auto) 33.7 [place] % (Auto) 9.8 H Eos % (Auto) 2.4 Baso % (Auto) 1.4 H Lymph # (Auto) 2.80 [place] # (Auto) 0.8 H Eos # (Auto) 0.2 Baso # (Auto) 0.1 Abs Immat Gran (auto) 0.03 Absolute Neuts (auto) 4.3 Absolute Nucleated RBC 0.020 H Nucleated RBC % 0.2 Sodium 138 Potassium 3.9 Chloride 102 Carbon Dioxide 30 Anion Gap 6 BUN 18 Creatinine 1.07 Estim Creat Clear Calc 73 Estimated GFR > 60 Glucose 158 H POC Capillary Glucose 150 H 168 H Calcium 9.0 Total Bilirubin 1.1 AST 32 ALT 23 Alkaline Phosphatase 75 Total Protein 7.1 Albumin 3.8 08/12/25 07:40 WBC RBC Hgb Hct MCV MCH MCHC RDW Plt Count MPV Immature Gran % (Auto) Neut % (Auto) Lymph % (Auto) [place] % (Auto) Eos % (Auto) Baso % (Auto) Lymph # (Auto) [place] # (Auto) Eos # (Auto) Baso # (Auto) Abs Immat Gran (auto) Absolute Neuts (auto) Absolute Nucleated RBC Nucleated RBC % Sodium Potassium Chloride Carbon Dioxide Anion Gap BUN Creatinine Estim Creat Clear Calc Estimated GFR Glucose POC Capillary Glucose 156 H Calcium Total Bilirubin AST ALT Alkaline Phosphatase Total Protein Albumin Quality VTE Prophylaxis VTE prophylaxis: pharmacologic ordered
[2025-08-12] MEDS: DIGOXIN TAB 125 MCG TABLET PO (11:51)
[2025-08-12] MEDS: INSULIN ASPART (*BKC) 100 UNITS/ML SUB-Q (16:49)
[2025-08-12] MEDS: buPROPion HCL XL (24 HR) 150 MG TABCR 300 MG PO (21:41)
[2025-08-13] VITALS (7 sets, daily range): BP systolic 100–119; BP diastolic 60–85; PULSE 81–99; RESP 16–20; TEMP 36.4–36.6; O2SAT 98
[2025-08-13 05:36] LABS: Hematocrit 49.0 % (42.0-52.0); Hemoglobin 15.5 g/dL (14.0-18.0); Immature Granulocyte Percent A 0.1 % (0-0.5); Lymphocytes Absolute Auto 2.23 K/mm3 (0.9-3.2); Mean Corpuscular HGB Conc 31.6 g/dl (32-36); Mean Corpuscular Hemoglobin 33.1 pg (26-34); Mean Corpuscular Volume 104.7 fl (80-100); Nucleated Red Blood Cells Absolute Auto 0.000 K/mm3 (0.0-0.012); Nucleated Red Blood Cells Perc 0.0 % (0.0-0.2); Platelet Count Result 211 k/mm3 (150-375); Red Blood Count 4.68 M/mm3 (4.6-6.20); White Blood Count 7.3 K/mm3 (4.5-10.0)
[2025-08-13 05:59] LABS: Alanine Aminotransferase 21 U/L (6-50); Albumin Level 3.6 g/dL (3.5-5.1); Alkaline Phosphatase 74 U/L (38-126); Anion Gap 9 mmol/L (4-12); Aspartate Amino Transferase 37 U/L (17-59); Bilirubin,Total 1.2 mg/dL (0.2-1.3); Blood Urea Nitrogen 20 mg/dL (9-20); Calcium 8.7 mg/dL (8.4-10.2); Carbon Dioxide 23 mmol/L (22-30); Chloride 103 mmol/L (98-107); Estimated CRCL calculation 82 ml/min; Estimated Glomerular Filt Rate > 60; Glucose 125 mg/dL (65-110); Potassium 3.8 mmol/L (3.4-5.0); Sodium 135 mmol/L (137-145); Total Protein 6.7 g/dL (6.3-8.2)
[2025-08-13] MEDS: METOPROLOL SUCCINATE EXT REL 100 MG TABCR 200 MG PO (10:03)
[2025-08-13] MEDS: DIGOXIN TAB 125 MCG TABLET PO (10:03)
[2025-08-13] MEDS: FUROSEMIDE 20 MG TABLET PO (10:03)
[2025-08-13] MEDS: EMPAGLIFLOZIN 10 MG TABLET PO (10:04)
[2025-08-13] MEDS: MAGNESIUM OXIDE 400 MG TABLET PO (10:04)
[2025-08-13] MEDS: CYANOCOBALAMIN 1,000 MCG TABLET 1000 MCG PO (10:04)
[2025-08-13] MEDS: ENOXAPARIN 40 MG/0.4 ML SYRINGE SUB-Q (10:04)
[2025-08-13] MEDS: FOLIC ACID 1 MG TABLET PO (10:04)
[2025-08-13] MEDS: DULoxetine HCL 60 MG CAPSULE.DR PO (10:05)
[2025-08-13] MEDS: ATORVASTATIN 10 MG TABLET PO (10:07)
--- NOTE | 2025-08-13 13:08 | P.PNCA_ITS ---
Progress Note: A&P Assessment and Plan (1) Paroxysmal atrial fibrillation: Code(s): I48.0 - Paroxysmal atrial fibrillation Status: Acute (2) Congestive heart failure (CHF): Code(s): I50.9 - Heart failure, unspecified Status: Acute (3) History of cardiomyopathy: Code(s): Z86.79 - Personal history of other diseases of the circulatory system Status: Acute (4) Hypertension associated with type 2 diabetes mellitus: Code(s): E11.59 - Type 2 diabetes mellitus with other circulatory complications; I15.2 - Hypertension secondary to endocrine disorders Status: Acute (5) Diabetes: Code(s): E11.9 - Type 2 diabetes mellitus without complications Status: Acute (6) Obesity: Code(s): E66.9 - Obesity, unspecified Status: Acute Plan But resistant atrial fibrillation currently rate controlled Nonischemic cardiomyopathy ejection fraction 30% Hypertension rate control Diabetes mellitus type 2 CKD stage 3 Obesity Plan: ToprolXL 200mg daily Digoxin 125mcg daily Aspirin 81 mg daily Jardiance 10 mg daily Lasix 20 mg daily Outpatient SHAUN/DCCV Subjective Date/time seen: 08/13/25 13:08 Interval history: Patient seen for evaluation of CHF and atrial fibrillation Shortness of breath with activity No acute events overnight Telemetry atrial fibrillation rate 100-110 Review of Systems Review of Systems: All systems reviewed & are unremarkable except as noted in HPI and below Exam Const: General: comfortable and no acute distress Eyes: General: appearance normal, both eyes and all related structures Neck: Neck: supple and no JVD Resp: Effort & Inspection: normal respiratory effort Cardio: Rate: tachycardic Rhythm: abnormal rhythm Other: irreg irreg. no murmurs, rubs or gallops Skin: General skin exam: normal color Neuro: Speech: normal speech Extrem: General: normal to inspection Psych: Mental Status: mental status grossly normal Affect: normal affect Objective Data Vital Signs Vital Signs: Vital Signs - 24 hr 08/12/25 14:00 08/12/25 14:18 08/12/25 16:00 Temperature 36.6 C Pulse Rate 105 H 96 94 Respiratory Rate 16 Blood Pressure 108/68 Pulse Oximetry 96 Oxygen Delivery 08/12/25 20:00 08/12/25 20:00 08/12/25 21:12 Temperature 36.6 C Pulse Rate 97 93 Respiratory Rate 16 Blood Pressure 118/68 Pulse Oximetry 97 Oxygen Delivery Room Air 08/12/25 21:42 08/13/25 00:00 08/13/25 04:00 Temperature Pulse Rate 93 96 91 Respiratory Rate Blood Pressure Pulse Oximetry Oxygen Delivery 08/13/25 07:02 08/13/25 08:00 08/13/25 08:00 Temperature 36.4 C Pulse Rate 81 99 Respiratory Rate 16 Blood Pressure 100/60 Pulse Oximetry 98 Oxygen Delivery Room Air 08/13/25 10:03 08/13/25 10:03 Temperature Pulse Rate 82 82 Respiratory Rate Blood Pressure Pulse Oximetry Oxygen Delivery Intake/Output Intake/Output: Intake & Output 08/10/25 08/11/25 08/12/25 08/13/25 23:59 23:59 23:59 23:59 Intake Total 0105 562 9653 790 Balance 7557 734 8077 790 Meds/Results Medications: Active Medications Generic Name Dose Route Start Last Admin Trade Name Freq PRN Reason Stop Dose Admin Atorvastatin Calcium 10 mg 08/10/25 09:00 08/13/25 10:07 Atorvastatin 10 Mg Tablet PO 10 mg DAILY REGINA Administration Bupropion HCl 300 mg 08/10/25 21:00 08/12/25 21:41 Bupropion Hcl Xl (24 Hr) 150 Mg Tabcr PO 300 mg HS REGINA Administration Cyanocobalamin 1,000 mcg 08/10/25 09:00 08/13/25 10:04 Cyanocobalamin 1,000 Mcg Tablet PO 1,000 mcg QAM REGINA Administration Dextrose 12.5 gm 08/10/25 05:35 Dextrose 50% 25 Gm/50 Ml Syringe IV PUSH PRN PRN Hypoglycemia Protocol Digoxin 125 mcg 08/12/25 11:10 08/13/25 10:03 Digoxin Tab 125 Mcg Tablet PO 125 mcg QAM REGINA Administration Duloxetine HCl 60 mg 08/10/25 09:00 08/13/25 10:05 Duloxetine Hcl 60 Mg Capsule.Dr PO 60 mg DAILY REGINA Administration Empagliflozin 10 mg 08/10/25 09:00 08/13/25 10:04 Empagliflozin 10 Mg Tablet PO 10 mg DAILY REGINA Administration Enoxaparin Sodium 40 mg 08/10/25 12:00 08/13/25 10:04 Enoxaparin 40 Mg/0.4 Ml Syringe SUB-Q 40 mg DAILY REGINA Administration Folic Acid 1 mg 08/10/25 09:00 08/13/25 10:04 Folic Acid 1 Mg Tablet PO 1 mg DAILY REGINA Administration Furosemide 20 mg 08/10/25 09:00 08/13/25 10:03 Furosemide 20 Mg Tablet PO 20 mg DAILY REGINA Administration Glucose 15 gm 08/10/25 05:35 Glucose Oral Gel 15 Gm Of Glucse In 37.5 Gm Tube PO PRN PRN Hypoglycemia Protocol Dextrose 1,000 mls @ 100 mls/hr 08/10/25 05:35 Dextrose 5% 1,000 Ml IVPB PRN PRN Hypoglycemia Protocol Insulin Aspart 2 - 5 units 08/10/25 08:00 08/13/25 12:36 Insulin Aspart (*Bkc) 100 Units/Ml SUB-Q Not Given TIDWM REGINA Protocol Insulin Aspart 1 - 2 units 08/10/25 21:00 08/12/25 21:40 Insulin Aspart (*Bkc) 100 Units/Ml SUB-Q Not Given HS REGINA Protocol Magnesium Oxide 400 mg 08/10/25 09:00 08/13/25 10:04 Magnesium Oxide 400 Mg Tablet PO 400 mg DAILY REGINA Administration Metoprolol Succinate 200 mg 08/13/25 09:00 08/13/25 10:03 Metoprolol Succinate Ext Rel 100 Mg Tabcr PO 200 mg QAM REGINA Administration Radiology Results: ITS Impressions Chest X-Ray 08/09/25 13:46 IMPRESSION: 1: NO ACUTE CARDIOPULMONARY DISEASE. Labs Labs: Laboratory Results - last 24 hr 08/12/25 08/12/25 08/13/25 16:37 21:14 05:09 WBC 7.3 RBC 4.68 Hgb 15.5 Hct 49.0 MCV 104.7 H MCH 33.1 MCHC 31.6 L RDW 13.9 Plt Count 211 MPV 11.3 H Immature Gran % (Auto) 0.1 Neut % (Auto) 55.4 Lymph % (Auto) 30.5 [place] % (Auto) 9.8 H Eos % (Auto) 2.7 Baso % (Auto) 1.5 H Lymph # (Auto) 2.23 [place] # (Auto) 0.7 H Eos # (Auto) 0.2 Baso # (Auto) 0.1 Abs Immat Gran (auto) 0.01 Absolute Neuts (auto) 4.1 Absolute Nucleated RBC 0.000 Nucleated RBC % 0.0 Sodium 135 L Potassium 3.8 Chloride 103 Carbon Dioxide 23 Anion Gap 9 BUN 20 Creatinine 0.95 Estim Creat Clear Calc 82 Estimated GFR > 60 Glucose 125 H POC Capillary Glucose 314 H 169 H Calcium 8.7 Total Bilirubin 1.2 AST 37 ALT 21 Alkaline Phosphatase 74 Total Protein 6.7 Albumin 3.6 08/13/25 08/13/25 07:55 12:28 WBC RBC Hgb Hct MCV MCH MCHC RDW Plt Count MPV Immature Gran % (Auto) Neut % (Auto) Lymph % (Auto) [place] % (Auto) Eos % (Auto) Baso % (Auto) Lymph # (Auto) [place] # (Auto) Eos # (Auto) Baso # (Auto) Abs Immat Gran (auto) Absolute Neuts (auto) Absolute Nucleated RBC Nucleated RBC % Sodium Potassium Chloride Carbon Dioxide Anion Gap BUN Creatinine Estim Creat Clear Calc Estimated GFR Glucose POC Capillary Glucose 159 H 139 H Calcium Total Bilirubin AST ALT Alkaline Phosphatase Total Protein Albumin
--- NOTE | 2025-08-13 14:11 | P.DS_ITS ---
DS: Admitting Diagnosis Discharge Date 08/13/2025 Admitting Diagnosis AFib with RVR DS: Discharge Diagnosis Discharge Diagnosis (1) Atrial fibrillation with RVR: Code(s): I48.91 - Unspecified atrial fibrillation Status: Acute Assessment and Plan: * Keep serum potassium >4 and keep magnesium >2 * Received diltiazem 20 mg IV x1 * Lovenox dvt prophylaxis * Consult Cardiology for further management, appreciate assistance and recommendations * 08/12 * Metoprolol switched from 75mg q8hr -> ToprolXL 200mg daily * Add Digoxin 125mcg daily * Plan for Outpt SHAUN/DCCV (2) Shortness of breath: Code(s): R06.02 - Shortness of breath Status: Acute Assessment and Plan: * See above * Likely secondary to underlying AFib with RVR * Chest x-ray not indicative of any acute cardiopulmonary process * Troponin within normal limits. * BNP 4080, but does not appear to be fluid overloaded on exam (3) Congestive heart failure (CHF): Code(s): I50.9 - Heart failure, unspecified Status: Acute Assessment and Plan: * Symptoms: Shortness of breath * Current medications: Jardiance * Supportive treatment * BNP: 4080 * EKG: AFib with RVR * Chest XR: No acute cardiopulmonary disease * Echo: EF of 30% per recent echo 06/2025 * Monitor vital signs, I&Os, BUN/creatinine, daily weights, neuro status and patient is a fall risk * Monitor serum electrolytes, Keep serum Potassium>4 and serum Magnesium>2 and CBC * Per cardiology recommendations * Continue Metoprolol, Jardiance and Lasix * Can consider ARNI on OP basis (4) Hypertension: Code(s): I10 - Essential (primary) hypertension Status: Acute Assessment and Plan: * Patient's blood pressure was reviewed on 08/10 * Blood pressure remains well controlled * Will continue current medications * 160/95 DS: Summary Hospital Course Reason for hospitalization: Shortness of breath Hospital Course: Per HPI: 69-year-old male with history of anemia, cirrhosis, diastolic CHF, p aroxysmal atrial fibrillation status post left atrial appendage occlusion device, diabetes mellitus without current long-term use of insulin, presents for shortness of breath. This is been going on for a few days, feels as he views fatigue. Has also felt palpitations. In the ER he is found to be in AFib with rate into the 130s. Saturating well on room air. He was given diltiazem 20 mg IV x1. His RVR improved, shortness of breath resolved and patient was resting comfortably thereafter. His elevated BNP but is not appear to be in clinical overload. Troponin 0.032, 0.033. Cardiology consulted. Patient admitted he s/p dose of IV Cardizem with rate continuing to be in the 120s. Cardiology consulted, agree that rhythm appears to be paroxysmal in nature, however recent echocardiogram in June showed that the patient was at AFib. He was symptomatic with shortness of breath and fatigue at the time. His metoprolol dose was increased from 25 mg b.i.d. to 50 mg b.i.d. than once again increased to 75 mg t.i.d. without clear improvement of rate/rhythm. On 08/12, Toprol 200 mg daily was initiated instead of metoprolol tartrate. Digoxin 125 mcg daily was added also to the regimen. At this time cardiology recommended that the patient follow-up in the outpatient setting for a SHAUN/DCCV. Cardiology reassess the patient on 08/13 and agreed that patient is otherwise hemodynamically stable. Throughout hospitalization patient did not have any presenting symptoms such as chest pain, shortness of breath, dizziness, diaphoresis or abdominal pain. Cardiology recommends continuing Toprol XL, digoxin, aspirin, Jardiance and Lasix with following up with Cardiology in the outpatient setting for SHAUN/DCCV. Patient very ready to be discharged home and will follow-up with his PCP and Cardiology for further management. Plan for discharge home at this time. Status at Discharge Functional status at discharge: independent ambulation Overall status at discharge: patient is back to baseline Time Spent with Patient Time attestation: Total time spent providing and/or coordinating discharge services: 32 Exam Const: General: comfortable and no acute distress Eyes: Pupils: Equal, round and reactive pupils present Neck: Neck: supple Resp: Effort & Inspection: normal respiratory effort Auscultation: clear to auscultation bilaterally Cardio: Rate: regular rate Rhythm: abnormal rhythm GI: Inspection: non-distended Neuro: Cranial nerves: Yes Equal, round and reactive pupils present Motor exam (neuro): 5/5 motor strength present throughout Extrem: General: no edema Psych: Mental Status: mental status grossly normal Affect: normal affect DS: Data Data Completed and Pending Labs on day of discharge: Labs from last 24 hours 08/13/25 08/13/25 08/13/25 12:28 07:55 05:09 WBC 7.3 RBC 4.68 Hgb 15.5 Hct 49.0 MCV 104.7 H MCH 33.1 MCHC 31.6 L RDW 13.9 Plt Count 211 MPV 11.3 H Immature Gran % (Auto) 0.1 Neut % (Auto) 55.4 Lymph % (Auto) 30.5 [place] % (Auto) 9.8 H Eos % (Auto) 2.7 Baso % (Auto) 1.5 H Lymph # (Auto) 2.23 [place] # (Auto) 0.7 H Eos # (Auto) 0.2 Baso # (Auto) 0.1 Abs Immat Gran (auto) 0.01 Absolute Neuts (auto) 4.1 Absolute Nucleated RBC 0.000 Nucleated RBC % 0.0 Sodium 135 L Potassium 3.8 Chloride 103 Carbon Dioxide 23 Anion Gap 9 BUN 20 Creatinine 0.95 Estim Creat Clear Calc 82 Estimated GFR > 60 Glucose 125 H POC Capillary Glucose 139 H 159 H Calcium 8.7 Total Bilirubin 1.2 AST 37 ALT 21 Alkaline Phosphatase 74 Total Protein 6.7 Albumin 3.6 08/12/25 08/12/25 21:14 16:37 WBC RBC Hgb Hct MCV MCH MCHC RDW Plt Count MPV Immature Gran % (Auto) Neut % (Auto) Lymph % (Auto) [place] % (Auto) Eos % (Auto) Baso % (Auto) Lymph # (Auto) [place] # (Auto) Eos # (Auto) Baso # (Auto) Abs Immat Gran (auto) Absolute Neuts (auto) Absolute Nucleated RBC Nucleated RBC % Sodium Potassium Chloride Carbon Dioxide Anion Gap BUN Creatinine Estim Creat Clear Calc Estimated GFR Glucose POC Capillary Glucose 169 H 314 H Calcium Total Bilirubin AST ALT Alkaline Phosphatase Total Protein Albumin Discharge Plan Discharge Attending physician on discharge: Denia Leonard Consulting providers: Clem Tiwari; Rubén Plunkett Discharging Clinician: Clem Tiwari Anticipated Discharge Date/Time: 08/13/25 14:05 Patient Disposition: Home Activity: no straining Diet: heart healthy Discharge Instructions: Discharge disposition: Home Take medications as prescribed. You will be prescribed ToprolXL 200mg daily (each pill will be 100mg, so take two), Digoxin 125mcg daily. Continue Aspirin 81 mg daily and Jardiance 10 mg daily Monitor blood pressures Take caution while standing, rising, or moving Change positions slowly taking a break between each position change If you standing feel dizzy sit back down and take a break Encouraged to continue with yearly vaccinations Return to the emergency department if he developed sudden shortness of breath, chest pain, nausea, vomiting, upset stomach or intractable diarrhea Return to the emergency department if you develop fever greater than 101.5 Follow-up with the primary care physician within 1-2 weeks Follow-up with the cardiology Dr. Plunkett's office to set up an outpatient a transesophageal echocardiogram and Direct Current Cardioversion procedure. Thank you for choosing [facility] for your healthcare needs Patient Instructions: Antibiotic Form Patient Language: Japanese Stand Alone Forms: General Discharge Information Follow-up/Referrals: Rubén Plunkett MD [Physician, Cardiology] Yovanny,Demetrius Mendiola MD [Primary Care Provider, Unknown] Discharge Medications: New metoprolol succinate [Toprol XL] 100 mg Tablet Extended Release 24 Hr 200 mg PO QAM 30 Days Qty: 60 0RF digoxin 125 mcg (0.125 mg) tablet 125 mcg PO DAILY 30 Days Qty: 30 0RF Continued furosemide [Lasix] 40 mg Tablet 20 mg PO DAILY folic acid 1 mg Tablet 1 mg PO DAILY duloxetine 60 mg Capsule,Delayed Release(Dr/Ec) 60 mg PO DAILY magnesium oxide 400 mg magnesium Tablet 400 mg PO DAILY atorvastatin 10 mg tablet 10 mg PO DAILY bupropion HCl 300 mg tablet extended release 24 hr 300 mg PO HS Jardiance 10 mg tablet 10 mg PO DAILY cyanocobalamin (vitamin B-12) [Vitamin B-12] 1,000 mcg Tablet 1,000 mcg PO QAM Qty: 30 0RF Discontinued metoprolol tartrate 50 mg tablet 25 mg PO BID Date of admission: 08/11/25 13:29 Primary Care Provider: Yovanny,Demetrius Mendiola Admitting Provider: Denia Leonard Attending physician on admission: Denia Leonard Condition: Stable
== END 2025-08-13 15:05 | disposition home or self-care (01) | DRG 309 ==
LOC: ANHED 18:22 → ANH2MED 21:59
PROVIDERS: Emergency Medicine; Nurse Practitioner Family; Admitting Provider General Practice; Emergency Provider Student in an Organized Health Care Education/Training Program; PCP Internal Medicine; Visit Provider Physician Assistant
DX: I48.0 Paroxysmal atrial fibrillation (principal); I13.0 Hypertensive heart and chronic kidney disease with heart failure and stage 1 through stage 4 chronic kidney disease, or unspecified chronic kidney disease; I50.32 Chronic diastolic (congestive) heart failure; I25.5 Ischemic cardiomyopathy; E78.5 Hyperlipidemia, unspecified; E11.22 Type 2 diabetes mellitus with diabetic chronic kidney disease; N18.9 Chronic kidney disease, unspecified; D64.9 Anemia, unspecified; K74.60 Unspecified cirrhosis of liver; E11.59 Type 2 diabetes mellitus with other circulatory complications; I15.2 Hypertension secondary to endocrine disorders; E66.9 Obesity, unspecified; G47.33 Obstructive sleep apnea (adult) (pediatric); Z87.891 Personal history of nicotine dependence
CPT/HCPCS: 36415; 71046; 80053; 82948; 83735; 83880; 84443; 84484; 85025; 87637; 93005; 96361; 96374; 99285; A9270; J1163; J1650; J1815; J7040

== ENCOUNTER 2025-11-04 09:56 | Outpatient (CLI) | payer MEDICARE, SELFPAY ==
--- NOTE | ~2025-11-04 | CT_ITS ---
EXAMINATION: CT diagnostic chest wo con DATE: 11/04/2025 10:08 INDICATION: Pleural effusion, rib fractures TECHNIQUE: Computed tomography (CT) of the chest was performed without intravenous contrast. Additional 3D reconstructions utilizing coronal maximum intensity projection (MIP) were performed. The dose-length product was 408.22 mGy-cm. COMPARISON: None FINDINGS: Mild discoid atelectasis at the inferior lingula. No pneumonia, pulmonary edema, pleural effusion or pneumothorax. Heart size is normal. Mitral annular calcification. Left atrial appendage occlusion device. No pericardial effusion. Thoracic aorta is normal in caliber. No pathologically enlarged thoracic lymphadenopathy. Old healed fractures of the posterior left 10th and 11th ribs and anterior right fifth and sixth ribs. There is bridging callus formation associated with healing fractures of the lateral right sixth, seventh and eighth ribs. IMPRESSION: 1. A couple old healed rib fractures on the left and right with more recent healing fractures of the lateral right sixth-eighth ribs. No pneumothorax or other acute cardiopulmonary disease. Reviewed, dictated and finalized at location A. [employer] TECHNICIAN IMPRESSION: 1. A couple old healed rib fractures on the left and right with more recent hea ling fractures of the lateral right sixth-eighth ribs. No pneumothorax or other acute cardiopulmonary disease.
== END 2025-11-04 09:57 | disposition home or self-care (01) ==
LOC: MICIMG 09:56
PROVIDERS: PCP Internal Medicine; Visit Provider Internal Medicine
DX: J90 Pleural effusion, not elsewhere classified (principal); S22.41XA Multiple fractures of ribs, right side, initial encounter for closed fracture; X58.XXXA Exposure to other specified factors, initial encounter
CPT/HCPCS: 71250